=== PATIENT | female | born 1975 | race Caucasian/White ===

== ENCOUNTER 2023-11-10 09:11 | Outpatient (CLI) | payer BC, SELFPAY | END 2023-11-10 09:12 | disposition home or self-care (01) | PROVIDERS: Visit Provider Obstetrics & Gynecology | DX: N92.0 Excessive and frequent menstruation with regular cycle (principal); R53.83 Other fatigue; Z13.220 Encounter for screening for lipoid disorders | CPT/HCPCS: 80061; 82306; 82947; 84443 ==

== ENCOUNTER 2023-11-14 07:23 | Outpatient (CLI) | payer BC, SELFPAY ==
--- NOTE | 2023-11-14 07:15 | US_ITS ---
Patient: VI TURCIOS Facility:?[facility] Patient ID:?[id number] Site Patient ID:?[id number]. Site :?[id number] Study:?US-Pelvis TRANSABDOMINAL AND TRANSVAGINAL-11/14/2023 7:59:56 AM Ordering Physician:GINO HUFF Final Report: INDICATION: Excessive and frequent menstruation. TECHNIQUE: Transabdominal and transvaginal pelvic ultrasound. FINDINGS: Uterus is retroverted and measures 8.3 x 5.6 x 6.9 cm. Endometrial stripe thickness is 1.2 cm. Both ovaries appear normal. No adnexal mass or free fluid. IMPRESSION: Normal pelvic ultrasound. Dictated by Neeraj Frye MD @ 11/14/2023 2:46:15 PM Signed by:?Neeraj Frye MD @11/14/2023 2:46:15 PM (Electronic Signature)
--- OUTSIDE RECORDS SUMMARY | 2023-11-14 07:26 | XMS_ITS | Referral Summary ---
Author Name Unknown Organization [place] Address [facility] [place] [address] Care Team Providers Care Digital Forensic Examiner Name Role Phone Mk Dodge OD Unavailable [phone] Frw, None Unavailable Unavailable No Ref-Primary, Physician Primary Care Provider Allergies Active Allergy Reactions Criticality Noted Date Comments No Known Drug Allergy 02/19/2008 Seasonal Allergies 11/01/2004 Medications Medication Sig Dispensed Refills Start Date End Date Status fluticasone (FLONASE) 50 MCG/ACT nasal sprayIndications:Ac comanche maxillary sinusitis [place] 1-2 sprays into both nostrils daily. 1 Package 11 04/04/2012 Active pseudoePHEDrine-gua iFENesin (MUCINEX D) 60-600 MG per tabletIndications:C hronic rhinitis Take 1 tablet by mouth every 12 hours. 180 tablet 3 06/15/2012 Active albuterol (PROAIR HFA, PROVENTIL HFA, VENTOLIN HFA) 108 (90 BASE) MCG/ACT inhalerIndications: Intermittent asthma Inhale 2 puffs into the lungs every 6 hours as needed for shortness of breath / dyspnea 1 Inhaler 0 07/12/2013 Active Active Problems Problem Noted Date Diagnosed Date Not immune to rubella 08/27/2010 Overview: Rubella: indeterminate: Offer post vaccination Do you wish to do the replacement in the background? yes Resolved Problems Problem Noted Date Diagnosed Date Resolved Date Supervision of other high-risk 08/07/2010 10/03/2011 Overview: H/O PTD at 33 weeks with first , Cerclage with 2nd and went term 08-26-10: Cerclage to be placed with MFM 02-03-11: Removal 02-03-11 OBS for PTL - received Terb and started on PO Nifedipine 10mg q4hr PRN CTX. A1GDM with first , early 1 GCT: normal Recheck growth scan. Problem list name updated by automated process. Provider to review Immunizations Name Administration Dates Next Due COVID-19 Monovalent 18+ (Moderna) 12/11/2020, COVID-19 Monovalent Booster 18+ (Moderna) 07/09/2021 HepB 09/22/2005,06/14/2005,05/17/2005 Historical DTP/aP 11/28/1974, 4,1973, 973 Influenza (IIV3) PF 04/08/2011, 0,04/06/2009, 008,05/09/2006,05/06/2004,05/12/2003,,05/17/2001 Influenza Intranasal Vaccine 05/02/2012 MMR 02/24/2011,06/07/1974 Mantoux Tuberculin Skin Test 03/04/1992 Measles 03/04/1992 OPV, trivalent, live 11/28/1974,11/26/18 74,1973, 973 TDAP (Adacel,Boostrix) 02/24/2011 Tetanus 08/06/1998 Social History Tobacco Use Types Packs/Day Years Used Date Smoking Tobacco: Former Smokeless Tobacco: Never Comments:teenager, quit afte r High School Alcohol Use Standard Drinks/Week Comments Yes 0 (1 standard drink = 0.6 oz pur e alcohol) socially, none with Adolescent Education Answer Date Record ed Getting School Help Needed Not on file 04/24 Sex and Gender Information Value Date Recorded Sex Assigned at Not on file Gender Identity Not on file Sexual Orientation Not on file Last Filed Vital Signs Vital Sign Reading Time Taken Comments Blood Pressure 122/61 07/12/2013 6:36 PM COUNSELING CENTER MANAGER Pulse 81 07/12/2013 6:36 PM COUNSELING CENTER MANAGER Temperature 37 ??C (98.6 ??F) 07/12/2013 6:36 PM COUNSELING CENTER MANAGER Respiratory Rate 16 10/26/2005 11:15 AM CDT Oxygen Saturation 96% 07/12/2013 6:36 PM COUNSELING CENTER MANAGER Inhaled Oxygen Concentration - - Weight 48.1 kg (106 lb) 06/15/2012 1:25 PM COUNSELING CENTER MANAGER Height 158.8 cm (5' 2.5) 10/03/2011 10:17 AM CD T Body Mass Index 19.08 10/03/2011 10:17 AM CDT Plan of Treatment Not on file Procedures Procedure Name Priority Date/Time Associated Diagnosis Comments BASIC METABOLIC PANEL Routine 10/03/2011 10:54 AM CDT Left sided abdominal pain Left flank pain Fever, unspecified Nausea and vomiting Dizziness HIV 1 AND 2 ANTIBODY (QUEST) Routine 08/25/2010 9:28 AM COUNSELING CENTER MANAGER Supervision of other normal HCL LIPID PANEL, REFLEX TO DIRECT LDL Routine 04/05/2010 10:29 AM CDT Lipid Screening HCL PAP THIN LAYER SCREEN Routine 04/05/2010 12:00 AM CDT Screening for Malignant Neoplasm of the Cervix from Last 3 Months or Most Recently Relevant to Health Maintenance Results * (ABNORMAL) Basic metabolic panel (10/03/2011 10:54 AM CDT) Sodium 139 133 - 144 mmol/L [facility] Potassium 3.6 3.4 - 5.3 mmol/L [facility] Chloride 101 94 - 109 mmol/L [facility] Carbon Dioxide 26 20 - 32 mmol/L [facility] Anion Gap 12 6 - 17 mmol/L [facility] Glucose 137(H) 60 - 99 mg/dL [facility] Urea Nitrogen 11 5 - 24 mg/dL [facility] Creatinine 0.82 0.52 - 1.04 mg/dL [facility] GFR Estimate 78 >60 mL/min/1.7 m2 [facility] GFR Estimate If Black >90 >60 mL/min/1.7 m2 [facility] Calcium 8.4(L) 8.5 - 10.4 mg/dL [facility] Blood specimen (specimen) 10/03/2011 10:54 AM CDT 10/03/2011 10:59 AM CDT Lina Rodriguez PA-C LAB - BLOOD OR DERABLES Performing Organization Address City/[facility]/ZIP Co de Phone Number [facility] [address] * HIV 1 and 2 Antibody (08/25/2010 9:28 AM COUNSELING CENTER MANAGER) HIV 1&2 Antibody Negative NEG [facility] Blood specimen (specimen) 08/25/2010 9:28 AM COUNSELING CENTER MANAGER 08/25/2010 9:29 AM COUNSELING CENTER MANAGER Ailyn Leyva NP LAB - BLOOD ORDERABL ES Performing Organization Address City/[facility]/ZIP Co de Phone Number [facility] * LIPID PANEL, REFLEX TO DIRECT LDL (04/05/2010 10:29 AM CDT) Cholesterol 176 0 - 200 mg/dL [facility] Comment: LDL Cholesterol is the primary guide to therapy. The NCEP recommends further evaluation of: patients with cholesterol <200 mg/dL if additional risk factors are present, cholesterol >240 mg/dL, triglycerides >150 mg/dL, or HDL <40 mg/dL. Triglycerides 53 0 - 150 mg/dL [facility] Comment:Fasting specimen HDL Cholesterol 57 50 - 110 mg/dL [facility] LDL Cholesterol Calculated 108 0 - 129 mg/dL [facility] Comment: LDL Cholesterol is the primary guide to therapy: LDL-cholesterol goal in high risk patients is <100 mg/dL and in very high risk patients is <70 mg/dL. VLDL-Cholesterol 11 0 - 30 mg/dL [facility] Cholesterol/HDL Ratio 3.1 0.0 - 5.0 [facility] 04/05/2010 10:2 9 AM CDT 04/05/2010 10:30 AM CDT Jean Springer MD LABORATORY [facility] [place] [address] * A THIN LAYER PAP SCREEN [G0123.000] (04/05/2010 12:00 AM CDT) PAP NIL COPATH Copath Report Patient Name: KINJAL TURCIOS MR#: [id number] Specimen #: [id number] Collected: 04/05/2010 Received: 04/06/2010 Reported: 04/07/2010 15:06 Ordering Phy(s): JEAN SPRINGER SPECIMEN/STAIN PROCESS: Pap thin layer prep screening (Surepath) ? Pap-Cyto x 1, Reflex HPV x 1 SOURCE: Cervical, endocervical Pap thin layer prep screening (Surepath) SPECIMEN ADEQUACY: Satisfactory for evaluation. -Transformation zone component present. CYTOLOGIC INTERPRETATION: Negative for Intraepithelial Lesion or Malignancy Electronically signed out by: ABHIJIT Bolden(ASCP) Processed and screened at [facility], [facility] CLINICAL HISTORY: LMP: NO LMP RECORDED Previous normal pap: NIL, 02/10/09 Previous normal pap: NIL, 04/17/06 Previous normal pap: NIL, 12/07/04, Papanicolaou Test Limitations: ??Cervical cytology is a screening test with limited sensitivity; regular screening is critical for cancer prevention; Pap tests are primarily effective for the diagnosis/preventi on of squamous cell carcinoma, not adenocarcinomas or other cancers. TESTING LAB LOCATION: [address] [place] [address] COLLECTION SITE: Client: ??[facility] Location: [facility] (W) COPATH 04/05/2010 04/06/2010 10: 30 AM CDT Jean Springer MD LABORATORY COPATH from Last 3 Months or Most Recently Relevant to Health Maintenance Care Teams Digital Forensic Examiner Relationship Specialty Start Date End Date Mk Dodge, DUC [facility] [address] [facility] [address] [place] [address] PCP - Ophthalmology 04/21/08 Frw, None PCP - Obstetrics/Gynecology Family Practice 08/25/10 No Ref-Primary, Physician PCP - General 07/09/21
--- OUTSIDE RECORDS SUMMARY | 2023-11-14 07:26 | XMS_ITS | Encounter Summary ---
Author Name Unknown Organization [place] Address [address] [place] [address] Care Team Providers Care Stamp Maker Name Role Phone Mk Dodge OD Unavailable Frw, None Primary Care Provider Unavailabl e Frw, None Unavailable Unavailable Encounter Details Date Type Department Care Team (Late st Contact Info) Description 02/10/2011 1:00 PM CDT [facility] in [facility] [address] [place] [phone] Wen Jo MD [address] [place] [address] Social History Tobacco Use Types Packs/Day Years Used Date Smoking Tobacco: Former Smokeless Tobacco: Never Comments:teenager, quit afte r High School Alcohol Use Standard Drinks/Week Comments Yes 0 (1 standard drink = 0.6 oz pur e alcohol) socially, none with Sex and Gender Information Value Date Recorded Sex Assigned at Not on file Gender Identity Not on file Sexual Orientation Not on file documented as of this encounter Plan of Treatment Not on file documented as of this encounter Visit Diagnoses Not on filedocumented in this encounter Care Teams Stamp Maker Relationship Specialty Start Date End Date Mk Dodge, DUC [facility] [address] [place] [address] [address] [place], [place] [id number] PCP - Ophthalmology 04/21/08 Frw, None PCP - General Family Practice 08/25/10 03/23/17 Frw, None PCP - Obstetrics/Gynecology Family Practice 08/25/10 documented as of this encounter
--- OUTSIDE RECORDS SUMMARY | 2023-11-14 07:26 | XMS_ITS | Encounter Summary ---
Author Name Unknown Organization [place] Address [address] [place] [address] Care Team Providers Care Reed Repairer Name Role Phone Mk Dodge OD Unavailable [phone] Frw, None Primary Care Provider Unavailabl e Frw, None Unavailable Unavailable Encounter Details Date Type Department Care Team (Late st Contact Info) Description 01/06/2011 11:00 AM T [facility] in [facility] [address] [place] [phone] Wen Jo MD [address] [place] [address] Social History Tobacco Use Types [...] on filedocumented in this encounter Care Teams Reed Repairer Relationship Specialty Start Date End Date Mk Dodge, DUC [address] [place], [place] [id number] PCP - Ophthalmology 04/21/08 Frw, None PCP - General Family Practice 08/25/10 03/23/17 Frw, None PCP - Obstetrics/Gynecology Family Practice 08/25/10 documented as of this encounter
--- OUTSIDE RECORDS SUMMARY | 2023-11-14 07:26 | XMS_ITS | Encounter Summary ---
Author Name Unknown Organization [place] Address [facility] [place] [address] Care Team Providers Care Program Specialist Name Role Phone Mk Dodge OD Unavailable Frw, None Primary Care Provider Unavailabl e Frw, None Unavailable Unavailable Encounter Details Date Type Department Care Team (Late st Contact Info) Description 01/15/2011 6:50 PM CDT [facility] in [facility] [address] [place] [phone] Claudia Meyers MD [facility] [address] [place] [address] Social History Tobacco Use Types Packs/Day Years [...] on filedocumented in this encounter Care Teams Program Specialist Relationship Specialty Start Date End Date Mk Dodge, DUC [address] [place] [address] PCP - Ophthalmology 04/21/08 Frw, None PCP - General Family Practice 08/25/10 03/23/17 Frw, None PCP - Obstetrics/Gynecology Family Practice 08/25/10 documented as of this encounter
--- OUTSIDE RECORDS SUMMARY | 2023-11-14 07:26 | XMS_ITS | Encounter Summary ---
Author Name Unknown Organization [place] Address [address] [place] [address] Care Team Providers Care Diamond Merchant Name Role Phone Placido Velazco MD Primary Care Provider [phone] Jean Abel MD Unavailable Unavailable Mk Dodge OD Unavailable [phone] Frw, None Primary Care Provider Unavailabl e Frw, None Unavailable Unavailable No Ref-Primary, Physician Primary Care Provider Encounter Details Date Type Department Care Team (Late st Contact Info) Description 04/08/2010 MyC Medical Advice [facility] in [place] [employer]ER AIRCRAFT [address] [place] [phone] Jean Abel MD Social History Tobacco Use Types Packs/Day Years Used Date Smoking Tobacco: Former Comments:teenager, quit afte r High School Alcohol Use Standard Drinks/Week Comments Yes 0 (1 standard drink = 0.6 oz pur e alcohol) socially Sex and Gender Information Value Date Recorded Sex Assigned at Not on file Gender Identity Not on file Sexual Orientation Not on file documented as of this encounter Plan of Treatment Not on file documented as of this encounter Visit Diagnoses Not on filedocumented in this encounter Care Teams Diamond Merchant Relationship Specialty Start Date End Date Placido Velazco MD [facility] [address] [facility] [place] [phone] PCP - General 1/23/01 2/1/11 Jean Abel MD PCP - Obstetrics/Gynecology 08/15/00 08/24/10 Mk Dodge OD [facility] [address] [facility] [address] [place] [address] PCP - Ophthalmology 04/21/08 Frw, None PCP - General Family Practice 08/25/10 03/23/17 Frw, None PCP - Obstetrics/Gynecology Family Practice 08/25/10 No Ref-Primary, Physician PCP - General 07/09/21 documented as of this encounter
--- OUTSIDE RECORDS SUMMARY | 2023-11-14 07:26 | XMS_ITS | Encounter Summary ---
Author Name Unknown Organization [place] Address [address] [place] [address] Care Team Providers Care Business Account Manager Name Role Phone Placido Velazco MD Primary Care Provider [phone] Jean Abel MD Unavailable Unavailable Mk Dodge OD Unavailable [phone] Frw, None Primary Care Provider Unavailabl e Frw, None Unavailable Unavailable No Ref-Primary, Physician Primary Care Provider Encounter Details Date Type Department Care Team (Late st Contact Info) Description 02/13/2009 MyC Medical Advice [facility] in [place] HAZARD WASTE HANDLER [address] [place] [phone] Jean Abel MD Social History Tobacco Use [...] on filedocumented in this encounter Care Teams Business Account Manager Relationship Specialty Start Date End Date Placido Velazco MD [facility] [address] [facility] [place] [phone] PCP - General 1/23/01 2/1/11 Jean Abel MD PCP - Obstetrics/Gynecology 08/15/00 08/24/10 Mk Dodge OD [facility] [address] [facility] [address] [place] [address] PCP - Ophthalmology 04/21/08 Frw, None PCP - General Family Practice 08/25/10 03/23/17 Frw, None PCP - Obstetrics/Gynecology Family Practice 08/25/10 No Ref-Primary, Physician PCP - General 07/09/21 documented as of this encounter
--- OUTSIDE RECORDS SUMMARY | 2023-11-14 07:26 | XMS_ITS | Encounter Summary ---
Author Name Unknown Organization [place] Address [address] [place] [address] Care Team Providers Care Net Lead Architect Name Role Phone Mk Dodge OD Unavailable [phone] Frw, None Primary Care Provider Unavailabl e Frw, None Unavailable Unavailable No Ref-Primary, Physician Primary Care Provider Reason for Visit * Reason Onset Date Comments Refill Request 01/19/2011 ambien Encounter Details Date Type Department Care Team (Late st Contact Info) Description 01/19/2011 Refill [facility] in [place] LENS MAKER [address] [place] [phone] Wen Jo MD [address] [place] [address] Refill Request (ambien) Social History Tobacco Use Types Packs/Day Years Used Date Smoking Tobacco: Former Smokeless Tobacco: Never Comments:teenager, quit afte r High School Alcohol Use Standard Drinks/Week Comments Yes 0 (1 standard drink = 0.6 oz pur e alcohol) socially, none with Comments Yes Sex and Gender Information Value Date Recorded Sex Assigned at Not on file Gender Identity Not on file Sexual Orientation Not on file documented as of this encounter Miscellaneous Notes * Telephone Encounter - Belle Alejo - 01/19/2011 4:53 PM CDT Please print, sign and have rx faxed back to [facility]. Skinny got rx but it had no signature. Seen today. Close encounter when completed. Thank you. documented in this encounter Plan of Treatment Not on file documented as of this encounter Visit Diagnoses Not on filedocumented in this encounter Care Teams Net Lead Architect Relationship Specialty Start Date End Date Mk Dogde OD [facility] [address] [facility] 95 [place] [address] PCP - Ophthalmology 04/21/08 Frw, None PCP - General Family Practice 08/25/10 03/23/17 Frw, None PCP - Obstetrics/Gynecology Family Practice 08/25/10 No Ref-Primary, Physician PCP - General 07/09/21 documented as of this encounter
--- OUTSIDE RECORDS SUMMARY | 2023-11-14 07:26 | XMS_ITS | Encounter Summary ---
Author Name Unknown Organization [facility] Address [address] [place] [address] Care Team Providers Care Bariatric Coordinator Name Role Phone Placido Velazco MD Primary Care Provider [phone] Jean Abel MD Unavailable Unavailable Mk Dodge OD Unavailable [phone] Frw, None Primary Care Provider Unavailabl e Frw, None Unavailable Unavailable No Ref-Primary, Physician Primary Care Provider Encounter Details Date Type Department Care Team (Late st Contact Info) Description 02/29/2008 MyC Medical Advice [facility] in [place] PLACEMENT DIRECTOR [address] [place] [phone] Jean Abel MD Social History Tobacco Use Types Packs/Day Years Used Date Smoking Tobacco: Former Comments:teenager, quit afte r High School Alcohol Use Standard Drinks/Week Comments Yes 0 (1 standard drink = 0.6 oz pur e alcohol) socially, not with Sex and Gender Information Value Date Recorded Sex Assigned at Not on file Gender Identity Not on file Sexual Orientation Not on file documented as of this encounter Plan of Treatment Not on file documented as of this encounter Visit Diagnoses Not on filedocumented in this encounter Care Teams Bariatric Coordinator Relationship Specialty Start Date End Date Placido Velazco MD [facility] [address] [facility] [address] [place] [address] PCP - General 08/15/00 08/24/10 Jean Abel MD PCP - Obstetrics/Gynecology 08/15/00 08/24/10 Mk Dodge OD [facility] [place] [address] [facility] [address] [place] [address] PCP - Ophthalmology 04/21/08 Frw, None PCP - General Family Practice 08/25/10 03/23/17 Frw, None PCP - Obstetrics/Gynecology Family Practice 08/25/10 No Ref-Primary, Physician PCP - General 07/09/21 documented as of this encounter
--- OUTSIDE RECORDS SUMMARY | 2023-11-14 07:26 | XMS_ITS | Encounter Summary ---
Author Name Unknown Organization [place] Address [address] [place] [address] Care Team Providers Care Eeo Officer Name Role Phone Placido Velazco MD Primary Care Provider [phone] Jean Abel MD Unavailable Unavailable Mk Dodge OD Unavailable [phone] Frw, None Primary Care Provider Unavailabl e Frw, None Unavailable Unavailable No Ref-Primary, Physician Primary Care Provider Encounter Details Date Type Department Care Team (Late st Contact Info) Description 04/05/2010 MyC Medical Advice [facility] in [place] COMPLIANCE PARALEGAL [address] [place] [phone] Jean Abel MD Social History Tobacco Use [...] on filedocumented in this encounter Care Teams Eeo Officer Relationship Specialty Start Date End Date Placido Velazco MD [facility] [address] [facility] [place] [phone] PCP - General 1/23/01 2/1/11 Jean Abel MD PCP - Obstetrics/Gynecology 08/15/00 08/24/10 Mk Dodge OD [facility] [address] [facility] [address] [place] [address] PCP - Ophthalmology 04/21/08 Frw, None PCP - General Family Practice 08/25/10 03/23/17 Frw, None PCP - Obstetrics/Gynecology Family Practice 08/25/10 No Ref-Primary, Physician PCP - General 07/09/21 documented as of this encounter
--- OUTSIDE RECORDS SUMMARY | 2023-11-14 07:26 | XMS_ITS | Clinical Summary ---
Author Name Unknown Organization [facility] Address [facility] [place] [address] Care Team Providers Care Exhibit Preparator Name Role Phone Mk Dodge OD Unavailable [phone] Frw, None Unavailable Unavailable No Ref-Primary, Physician Primary Care Provider Allergies Active Allergy Reactions Criticality Noted Date Comments No Known Drug Allergy 02/19/2008 Seasonal Allergies 11/01/2004 Medications Medication Sig Dispensed Refills Start Date End Date Status fluticasone (FLONASE) 50 MCG/ACT nasal sprayIndications:Ac curyung maxillary sinusitis [place] 1-2 sprays into both nostrils daily. 1 [...] 74,1973, 973 TDAP (Adacel,Boostrix) 02/24/2011 Tetanus 08/06/1998 Family History Medical History Relation Comments Alzheimer Disease Father Eye Disorder Father CATARACTS Prostate Cancer Maternal Grandfather Allergies Maternal Grandmother bee stings Diabetes Maternal Grandmother Eye Disorder Maternal Grandmother Grandmother - Cataracts Genetic Disorder Maternal Grandmother Neurologic Disorder Mother Hx/O seizure s with during labor later diagnosis with Epilepsy Hypertension Other Grandmother Cancer - colorectal Paternal Grandfather Eye Disorder Paternal Grandfather Grandfather - Cataracts Breast Cancer No family hx of Cerebrovascular Disease No family hx of Heart Disease No family hx of Thyroid Disease No family hx of reviewed 04/17/20 06 Relation Status Comments Father Alive Maternal Grandfather Maternal Grandmother Mother Alive Other Paternal Grandfather Social History Tobacco Use Types Packs/Day Years [...] Comments Blood Pressure 122/61 07/12/2013 6:36 PM [employer] Pulse 81 07/12/2013 6:36 PM [employer] Temperature 37 ??C (98.6 ??F) 07/12/2013 6:36 PM [employer] Respiratory Rate 16 10/26/2005 11:15 AM CDT Oxygen Saturation 96% 07/12/2013 6:36 PM [employer] Inhaled Oxygen Concentration - - Weight 48.1 kg (106 lb) 06/15/2012 1:25 PM [employer] Height 158.8 cm (5' 2.5) 10/03/2011 10:17 AM CD T Body Mass Index 19.08 10/03/2011 10:17 AM CDT Plan of Treatment Health Maintenance Due Date Last Done Comments ADVANCE CARE PLANNING 1973 ANNUAL REVIEW OF HM ORDERS 1973 CT COLONOGRAPHY 1973 FIT 1973 FLEX SIG 1973 MAMMO SCREENING 1973 sDNA (Cologuard) 1973 IPV IMMUNIZATION (4 of 4 - 4-dose series) 1977 11/28/1974, 1973, 1973, Additional history exists COLONOSCOPY 1983 COLORECTAL CANCER SCREENING 1983 HEPATITIS C SCREENING 1991 YEARLY PREVENTIVE VISIT 04/05/2011 04/05/20 10, 02/10/2009, 04/17/2006, Additional history exists PAP 04/05/2013 04/05/2010, 01/22, 04/17/2006, Additional history exists GLUCOSE 10/02/2014 10/03/2011, 03/24, 02/19/2008 LIPID 04/05/2015 04/05/2010 DTAP/TDAP/TD IMMUNIZATION (5 - Td or Tdap) 02/24/2021 02/24/2011, 08/06/1998, 11/28/1974, Additional history exists COVID-19 Vaccine (4 - 2022- season) 2023 07/09/2021, 12/11/2020, 11/13/2020 INFLUENZA VACCINE (#1) 2023 , 05/05/2020, 04/19/2019, Additional history exists ZOSTER IMMUNIZATION (1 of 2) 2023 PHQ-2 (once per calendar year) 2023 HEPATITIS B IMMUNIZATION Completed 006, 09/22/2005, 09/22/2005, Additional history exists HIV SCREENING Completed 08/25/2010 HPV IMMUNIZATION Aged Out No longer e ligible based on patient's age to complete this topic MENINGITIS IMMUNIZATION Aged Out No l onger eligible based on patient's age to complete this topic Pneumococcal Vaccine: Pediatrics (0 to 5 Years) and At-Risk Patients (6 to 64 Years) Aged Out No longer eligible based on patient's age to complete this topic RSV MONOCLONAL ANTIBODY Aged Out No l onger eligible based on patient's age to complete this topic Procedures Procedure Name Priority Date/Time Associated Diagnosis Comments BASIC METABOLIC PANEL Routine 10/03/2011 10:54 AM CDT Left sided abdominal pain Left flank pain Fever, unspecified Nausea and vomiting Dizziness HIV 1 AND 2 ANTIBODY (QUEST) Routine 08/25/2010 9:28 AM [employer] Supervision of other normal HCL LIPID PANEL, REFLEX TO DIRECT LDL Routine 04/05/2010 10:29 AM CDT Lipid Screening HCL PAP THIN LAYER SCREEN Routine 04/05/2010 12:00 AM CDT Screening for Malignant Neoplasm of the Cervix from Last 3 Months or Most Recently Relevant to Health Maintenance Results * (ABNORMAL) Basic metabolic panel (10/03/2011 10:54 AM CDT) Sodium 139 133 - 144 mmol/L [facility] Potassium 3.6 3.4 - 5.3 mmol/L [facility] Chloride 101 94 - 109 mmol/L [facility] Carbon Dioxide 26 20 - 32 mmol/L [facility] Anion Gap 12 6 - 17 mmol/L [facility] Glucose 137(H) 60 - 99 mg/dL [facility] Urea Nitrogen 11 5 - 24 mg/dL [facility] Creatinine 0.82 0.52 - 1.04 mg/dL [facility] GFR Estimate 78 >60 mL/min/1.7 m2 [facility] GFR Estimate If Black >90 >60 mL/min/1.7 m2 [facility] Calcium 8.4(L) 8.5 - 10.4 mg/dL [facility] Blood specimen (specimen) 10/03/2011 10:54 AM CDT 10/03/2011 10:59 AM CDT Lina Rodriguez PA-C LAB - BLOOD OR DERABLES [facility] [place] [address] * HIV 1 and 2 Antibody (08/25/2010 9:28 AM [employer]) HIV 1&2 Antibody Negative NEG [facility] Blood specimen (specimen) 08/25/2010 9:28 AM [employer] 08/25/2010 9:29 AM [employer] Ailyn Leyva NP LAB - BLOOD ORDERABL ES [facility] * LIPID PANEL, REFLEX TO DIRECT LDL (04/05/2010 10:29 AM CDT) Cholesterol 176 0 - 200 mg/dL [facility] Comment: LDL Cholesterol is the primary guide to therapy. The NCEP recommends further evaluation of: patients with cholesterol <200 mg/dL if additional risk factors are present, cholesterol >240 mg/dL, triglycerides >150 mg/dL, or HDL <40 mg/dL. Triglycerides 53 0 - 150 mg/dL [facility] Comment:Fasting specimen HDL Cholesterol 57 50 - 110 mg/dL [facility] LDL Cholesterol Calculated 108 0 - 129 mg/dL [facility] Comment: LDL Cholesterol is the primary guide to therapy: LDL-cholesterol goal in high risk patients is <100 mg/dL and in very high risk patients is <70 mg/dL. VLDL-Cholesterol 11 0 - 30 mg/dL [facility] Cholesterol/HDL Ratio 3.1 0.0 - 5.0 [facility] 04/05/2010 10:2 9 AM CDT 04/05/2010 10:30 AM CDT Jean Springer MD LABORATORY [facility] [address] * A THIN LAYER PAP SCREEN [G0123.000] (04/05/2010 12:00 AM CDT) PAP PETEY Begum Report Patient Name: KINJAL TURCIOS MR#: [id number] Specimen #: [id number] Collected: 04/05/2010 Received: 04/06/2010 Reported: 04/07/2010 15:06 Ordering Phy(s): JEAN SPRINGER SPECIMEN/STAIN PROCESS: Pap thin layer prep screening ([facility]) ? Pap-Cyto x 1, Reflex HPV x 1 SOURCE: Cervical, endocervical Pap thin layer prep screening ([facility]) SPECIMEN ADEQUACY: Satisfactory for evaluation. -Transformation zone component present. CYTOLOGIC INTERPRETATION: Negative for Intraepithelial Lesion or Malignancy Electronically signed out by: ABHIJIT Bolden(ASCP) Processed and screened at [facility], [facility] CLINICAL HISTORY: LMP: NO LMP RECORDED Previous normal pap: NIL, 02/10/09 Previous normal pap: NIL, 04/17/06 Previous normal pap: NIL, 5/17/05, Papanicolaou Test Limitations: ??Cervical cytology is a screening test with limited sensitivity; regular screening is critical for cancer prevention; Pap tests are primarily effective for the diagnosis/preventi on of squamous cell carcinoma, not adenocarcinomas or other cancers. TESTING LAB LOCATION: [address] [place] [address] COLLECTION SITE: Client: ??[facility] Location: [facility] (W) [facility] 04/05/2010 04/06/2010 10: 30 AM CDT Jean Springer MD LABORATORY [facility] from Last 3 Months or Most Recently Relevant to Health Maintenance Care Teams Exhibit Preparator Relationship Specialty Start Date End Date Mk Dodge OD [address] [address] PCP - Ophthalmology 04/21/08 Frw, None PCP - Obstetrics/Gynecology Family Practice 08/25/10 No Ref-Primary, Physician PCP - General 07/09/21
--- OUTSIDE RECORDS SUMMARY | 2023-11-14 07:26 | XMS_ITS | Encounter Summary ---
Author Name Unknown Organization [facility] Address [address] [place] [id number] Care Team Providers Care Vendor Manager Name Role Phone Placido Velazco MD Primary Care Provider [phone] Jean Abel MD Unavailable Unavailable Mk Dodge OD Unavailable [phone] Frw, None Primary Care Provider Unavailabl e Frw, None Unavailable Unavailable No Ref-Primary, Physician Primary Care Provider Encounter Details Date Type Department Care Team (Late st Contact Info) Description 02/25/2008 MyC Medical Advice [facility] in [place] [facility] [address] [phone] Jean Abel MD Social History Tobacco Use [...] on filedocumented in this encounter Care Teams Vendor Manager Relationship Specialty Start Date End Date Placido Velazco MD [facility] [address] [facility] [address] [place] [address] PCP - General 08/15/00 08/24/10 Jean Abel MD PCP - Obstetrics/Gynecology 08/15/00 08/24/10 Mk Dodge OD [facility] [place] [address] [facility] [address] [place] [address] PCP - Ophthalmology 04/21/08 Frw, None PCP - General Family Practice 08/25/10 03/23/17 Frw, None PCP - Obstetrics/Gynecology Family Practice 08/25/10 No Ref-Primary, Physician PCP - General 07/09/21 documented as of this encounter
--- OUTSIDE RECORDS SUMMARY | 2023-11-14 07:26 | XMS_ITS | Referral Summary ---
Author Name Unknown Organization [facility] Address [address] [place] [address] Care Team Providers Care Dishwasher Preparer Name Role Phone Elsewhere, Pcp Primary Care Provider Unavailabl e Source Comments Patient records contain information from all sites at [facility]. For routine questions regarding patient records, call [phone] during business hours, M-F 8:00 AM - 5:00 PM Central Time. Record requests for emergency care only can be directed to [phone] at any time.[facility] Encounters Date Type Department Care Team Description 08/28/2023 12:15 PM CROP NUTRITION SCIENTIST Office Visit Express Care in [address] [address] Ezio Mtz, PKellieA.-C., P.A. Sore Throat (Primary Dx); Asthma Mild Intermittent (HCC); Cough Acute Discharge Disposition: Home or Self Care from Last 3 Months Allergies Active Allergy Reactions Criticality Noted Date Comments Adhesive Tape-Silicones Rash 01/08/2016 Pollen Extracts Other (see comments) 10/19/2013 SEASONAL ALLERGIES Medications Medication Sig Dispensed Refills Start Date End Date Status albuterol (for_PROVENTIL HFA,VENTOLIN HFA) 90 mcg/actuation inhaler Inhale 2 puffs every 4 (four) hours as needed. 02/27/2015 Active fluticasone (for_FLONASE) 50 mcg/actuation nasal spray Administer 2 sprays into each nostril daily for 14 days. 16 g 07/01/2017 Active Active Problems Problem Noted Date Diagnosed Date Asthma Mild Intermittent 05/30/2019 Allergy Seasonal 05/30/2019 Immunizations Name Administration Dates Next Due DTP 11/28/1974, 4,1973,1972 HepB, Unspecified 09/22/2005,06/14/2005,05/17/20 05 Influenza (IM) Preservative Free 011,04/22/2010,04/06/2009,2005 Influenza Laiv (Nasal) (Discontinued) 05/02/2012 Influenza TIV (IM) 04/08/2011, 0,04/06/2009,2007,05/09/2006,05/06/2004,05/12/2003,1 ,05/17/2001 Influenza, Injectable, Mdck, Preservative Free, Quadrivalent 05/05/2020 Influenza, Injectable, Mdck, Quadrivalent 05/04/2021 Influenza, Seasonal, Injectable 05/15/20 17,05/06/2004,05/12/2003,2001,05/17/2001 Influenza, Unspecified 05/23/2016,2013,04/08/2011,2009,04/06/2009,05/02/2008,05/09/2006,1 ,05/12/2003,05/09/2002, 001 MMR 02/24/2011,06/07/1974 Measles 03/04/1992 OPV 11/28/1974, 4,1973,1972 Tdap 02/24/2011 Tetanus Toxoid, Adsorbed (discontinued) 08/06/1998 Tuberculin Skin Test, Unspecified 03/04/1992 influenza LAIV (Nasal) (2 ye ars through 49 years) 05/02/2012 influenza vaccine quad (FLUZONE/FLUARIX) (6 months and older)(PF) 04/19/2022,04/19/2019,05/18/2018 Social History Tobacco Use Types Packs/Day Years Used Date Smoking Tobacco: Former Smokeless Tobacco: Never Tobacco Cessation:Counseling Given: Not Answered Alcohol Use Standard Drinks/Week Comments Yes 0 (1 standard drink = 0.6 oz pur e alcohol) occasionally Humiliation, Afraid, Rape, and Kick questionnair e Answer Date Recorded Within the last year, have y ou been afraid of your partner or ex-partner? No 10/13/2022 Within the last year, have y ou been humiliated or emotionally abused in other ways by your partner or ex-partner? No Within the last year, have y ou been kicked, hit, slapped, or otherwise physically hurt by your partner or ex-partner? No 10/13/2022 Within the last year, have y ou been raped or forced to have any kind of sexual activity by your partner or ex-partner? No 10/13/2022 Social Connection and Isolat ion Panel [NHANES] Answer Date Recorded In a typical week, how many times do you talk on the phone with family, friends, or neighbors? More than three times a week 10/13/2022 How often do you get togethe r with friends or relatives? More than three times a week 10/13/2022 How often do you attend [facility] or orthodoxy services? Patient declined 10/13/2022 Do you belong to any clubs o r organizations such as jew groups, unions, fraternal or athletic groups, or school groups? Yes 10/13/2022 How often do you attend meet ings of the clubs or organizations you belong to? 1 to 4 times per year 10/13/2022 Are you , , di vorced, , never , or living with a partner? 10/13/2022 AUDIT-C Answer Date Recorded Q1: How often do you have a drink containing alc ohol? Monthly or less 10/13/2022 Q2: How many drinks containi ng alcohol do you have on a typical day when you are drinking? 1 or 2 10/13/2022 Q3: How often do you have si x or more drinks on one occasion? Never 10/13/2022 Overall Financial Resource Strain (CARDIA) Answe r Date Recorded How hard is it for you to pa y for the very basics like food, housing, medical care, and heating? Not very hard 10/13/2022 PHQ-2 Answer Date Recorded PHQ-2 Score 0 03/23/2020 [facility] of Occupat ional Health - Occupational Stress Questionnaire Answer Date Recorded Do you feel stress - tense, restless, nervous, or anxious, or unable to sleep at night because your mind is troubled all the time - these days? Only a little 10/13/2022 Exercise Vital Sign Answer Date Recorde d On average, how many days pe r week do you engage in moderate to strenuous exercise (like a brisk walk)? 2 days 10/13/2022 On average, how many minutes do you engage in exercise at this level? 20 min 10/13/2022 Hunger Vital Sign Answer Date Recorded Within the past 12 months, y ou worried that your food would run out before you got the money to buy more. Never true 10/14/19 Within the past 12 months, t he food you bought just didn't last and you didn't have money to get more. Never true 10/13/2022 PRAPARE - Transportation Answer Date Re corded In the past 12 months, has l ack of transportation kept you from medical appointments or from getting medications? No 09/22 In the past 12 months, has l ack of transportation kept you from meetings, work, or from getting things needed for daily living? No 10/13/2022 Housing Stability Vital Sign Answer Surinder e Recorded In the last 12 months, was t here a time when you were not able to pay the mortgage or rent on time? No 10/13/2022 In the last 12 months, how many places have you lived? 1 10/13/2022 In the last 12 months, was t here a time when you did not have a steady place to sleep or slept in a residential (including now)? No 10/13/2022 Nutrition Answer Date Recorded Nutrition: EVOO Fat Source No 10/13 On average, how many serving s of fruits and vegetables do you eat per day (serving size is equal to 1 cup or approximately the size of a tennis ball)? 4-5 10/13/2022 Dental Answer Date Recorded Dental: Regular Dentist Yes 10/14/19 Employment Answer Date Recorded Employment status Employed and actively working without restrictions 10/13/2022 Education Answer Date Recorded What is the highest level of school you have completed or the highest degree you have received? Associate degree: academic program 10/13/2022 Sex and Gender Information Value Date Recorded Sex Assigned at Female 06/29/2017 5:49 AM CROP NUTRITION SCIENTIST Gender Identity Female 06/29/2017 5:49 AM CROP NUTRITION SCIENTIST Sexual Orientation Straight 06/29/2017 5: 49 AM CROP NUTRITION SCIENTIST Last Filed Vital Signs Vital Sign Reading Time Taken Comments Blood Pressure 114/59 04/24/2023 7:46 AM CDT Pulse 70 04/24/2023 7:46 AM CDT Temperature 36.7 ??C (98 ??F) 08/28/2023 12:28 PM CROP NUTRITION SCIENTIST Respiratory Rate 16 04/24/2023 7:46 AM CDT Oxygen Saturation 98% 03/23/2020 7:38 AM CDT Inhaled Oxygen Concentration - - Weight 55.8 kg (123 lb 0.3 oz) 04/24/2023 7:46 A M CDT Height 159 cm (5' 2.6) 08/29/2022 10:50 AM CROP NUTRITION SCIENTIST Body Mass Index 22.07 08/29/2022 10:50 AM CROP NUTRITION SCIENTIST Plan of Treatment Not on file Procedures Procedure Name Priority Date/Time Associated Diagnosis Comments COMPREHENSIVE METABOLIC PANEL, S/P STAT 03/22/2020 10:08 AM CDT LIPID PANEL, S Routine 11/29/2016 7:04 AM CDT BI BREAST SCREENING BILATERAL WITH TOMOSYNTHESIS Routine 11/27/2015 3:19 PM CDT PATHOLOGY NIGHT WAREHOUSE MANAGER CYTOLOGY Routine 6 2:35 PM CDT from Last 3 Months or Most Recently Relevant to Health Maintenance Results * (ABNORMAL) Comprehensive Metabolic Panel (03/22/2020 10:08 AM CDT) Potassium, P 4.1 3.6 - 5.2 mmol/L 03/22/2020 10:43 AM CDT CNFL Sodium, P 138 135 - 145 mmol/L 03/22/2020 10:43 AM CDT CNFL Chloride, P 101 98 - 107 mmol/L 03/22/2020 10:43 AM CDT CNFL Bicarbonate, P 26 22 - 29 mmol/L 03/22/2020 10:43 AM CDT CNFL Anion Gap, P 11 7 - 15 03/22/2020 10:43 AM CDT CNFL BUN (Blood Urea Nitrogen), P 11 6 - 21 mg/dL 03/22/2020 10:43 AM CDT CNFL Creatinine 0.73 0.59 - 1.04 mg/dL 03/22/2020 10:43 AM CDT CNFL eGFR-Black/ >90 >=60 mL/min/BS A 03/22/2020 10:43 AM CDT CNFL Comment: ----ADDITIONAL INFORMATION---- Estimated GFR calculated using the 2009 CKD_EPI creatinine equation. eGFR Non-Black/ >90 >=60 mL/min/BS A 03/22/2020 10:43 AM CDT CNFL Comment: ----ADDITIONAL INFORMATION---- Estimated GFR calculated using the 2009 CKD_EPI creatinine equation. Calcium, Total, P 8.5(L) 8.6 - 10.0 mg/dL 03/22/2020 10:43 AM CDT CNFL Glucose, P 98 70 - 140 mg/dL 03/22/2020 10:43 AM CDT CNFL Protein, Total, P 6.9 6.3 - 7.9 g/dL 03/22/2020 10:43 AM CDT CNFL Albumin, P 4.2 3.5 - 5.0 g/dL 03/22/2020 10:43 AM CDT CNFL Aspartate Aminotransferase (AST), P 16 8 - 43 U/L 03/22/2020 10:43 AM CDT CNFL Alkaline Phosphatase, P 52 35 - 104 U/L 03/22/2020 10:43 AM CDT CNFL Alanine Aminotransferase (ALT), P 10 7 - 45 U/L 03/22/2020 10:43 AM CDT CNFL Bilirubin, Total, P 0.4 <=1.2 mg/dL 03/22/2020 10:43 AM CDT CNFL Blood (Blood, Venous) 03/22/2020 10:08 AM CDT 03/22/2020 10:12 AM CDT Lavon Alvarez P.A.-C. LAB BLOOD ADD-ON [facility] [address] [place] [id number], [facility] CNFL [place] [address] * Lipid Panel (11/29/2016 7:04 AM CDT) Cholesterol, Total 148 <=199 MGDL POWERCHART Comment: 2014 National Lipid Association recommendations for Total Cholesterol in adults ages 18 and up: Desirable <200 mg/dL Borderline high 200-239 mg/dL High 240 mg/dL 2014 National Lipid Association recommendations for Total Cholesterol in children ages 2 to 17. Acceptable <170 mg/dL Borderline High 170-199 mg/dL High 200 mg/dL HX HDL 54 >=50 MGDL POWERCHART Comment: 2014 National Lipid Association recommendations for HDL-C in adults ages 18 and up: Low <40 mg/dL (Men) Low <50 mg/dL (Women) 2014 National Lipid Association recommendations for HDL-C in children ages 2 to 17. Low <40 mg/dL Borderline Low 40-45 mg/dL Acceptable >45 mg/dL Triglycerides 57 <=149 MGDL POWERCHART Comment: 2014 National Lipid Association recommendations for Triglycerides in adults ages 18 and up: Normal <150 mg/dL Borderline High 150-199 mg/dL High 200-499 mg/dL Very High 500 mg/dL 2014 National Lipid Association recommendations for Triglycerides in children ages 2 to 9. Acceptable <75 mg/dL Borderline High 75-99 mg/dL High 100 mg/dL 2014 National Lipid Association recommendations for Triglycerides in children ages 10 to 17. Acceptable <90 mg/dL Borderline High 90-129 mg/dL High 130 mg/dL Trigs >400mg/dL: Triglycerides >400 mg/dL. Calculated LDL cholesterol is not valid. Non-HDL cholesterol may be used for risk assessment when triglycerides are >400mg/dL. Calculated LDL 83 <=129 MGDL POWERCHART Comment: 2014 National Lipid Association recommendations for LDL-C in adults ages 18 and up: Desirable <100 mg/dL Above desirable 100-129 mg/dL Borderline high 130-159 mg/dL High 160-189 mg/dL Very High 190 mg/dL 2014 National Lipid Association recommendations for LDL-C in children ages 2 to 17. Acceptable <110 mg/dL Borderline High 110-129mg/dL High 130 mg/dL LDL-C >190mg/dL: The markedly elevated LDL level is suggestive of a genetic condition such as familial hypercholesterolemia(FH) or familial defective apolipoprotein B-100 (FDB). Molecular genetic testing for FH and FDB is available through [facility]: FH/ADH Genetic Reflex Panel (test ADHP). Acquired (non-genetic) causes of markedly increased LDL cholesterol include cholestatic liver disease due to the presence of LpX. If a genetic form of hypercholesterolemia is suspected, family studies including biochemical testing for lipids (total cholesterol,triglycerides, LDL cholesterol and HDL cholesterol) are recommended. ??Please contact the laboratory at or the on-line test catalog at [employer] for information about how to order these tests or to speak with a genetic counselor. Further interpretation would require clinical information. Total Cholesterol/HDL Ratio 3 POWERCHART Blood 11/29/2016 7:04 AM CDT Jeanine De La Torre P.A.-C. P.A. LAB BLOOD ADD-ON POWERCHART * BI Breast Screening Bilateral with Tomosynthesis (11/27/2015 3:19 PM CDT) Anatomical Region Laterality Modality Breast Bilateral Mammography 11/27/2015 3:19 PM CDT Impressions 11/27/2015 3:48 PM CDT Negative. RECOMMENDATION: Annual screening mammography. BI-RADS ASSESSMENT: 1: Negative. LETTER: L1/2S Electronically signed by: ?? Letty Zamora MD 27-Nov-2015 15:48 Narrative 11/27/2015 3:48 PM CDT 27-Nov-2015 15:19:00 ??Exam: Mammo Screen Jhonatan Tomosynthesis Indications: Mammogram screening breast [place] ORIGINAL REPORT - 27-Nov-2015 15:48:00 EXAM: Digital Mammography Screen Bilateral Tomosynthesis Computer-aided detection equipment was used during interpretation. COMPARISON: None, this is a baseline screening exam. DENSITY: d. The breast(s) are extremely dense, which lowers the sensitivity of mammography. FINDINGS: No mammographic findings of malignancy. Procedure Note Yuan Zamora M.D. - 10/19/2017 27-Nov-2015 15:19:00 Exam: Mammo Screen Jhonatan Tomosynthesis Indications: Mammogram screening breast [place] ORIGINAL REPORT - 27-Nov-2015 15:48:00 EXAM: Digital Mammography Screen Bilateral Tomosynthesis Computer-aided detection equipment was used during interpretation. COMPARISON: None, this is a baseline screening exam. DENSITY: d. The breast(s) are extremely dense, which lowers thesensitivity of mammography. FINDINGS: No mammographic findings of malignancy. IMPRESSION: Negative. RECOMMENDATION: Annual screening mammography. BI-RADS ASSESSMENT: 1: Negative. LETTER: L1/2S Electronically signed by: Letty Zamora MD 27-Nov-2015 15:48 Beatrice Henao M.D. IMG BI PROCEDUR ES * Pathology NIGHT WAREHOUSE MANAGER Cytology (11/27/2015 2:35 PM CDT) 11/27/2015 2:35 PM CDT Narrative [facility] - 12/04/2015 10:39 AM CDT Pat: KINJAL TURCIOS ([id number]) Age/Sex: 40 ??F ??Loc: ? -00 ([place] ) [facility] ??SHLOMO: 11/27/15 14:35 ??REC: 11/27/15 14:35 ??PHYS: , Cytology ?ThinPrep cervical specimen Patient Name: KINJAL TURCIOS MR#: [id number] Submitting Physician: BEATRICE ??CHELO SALVADOR ??[id number] Specimen #[id number] Performing Lab: ??[address] [address] CLINICAL HISTORY: Last menstrual period: Status: Specimen Source: Cervical Pap Type: Routine Pap Clinical History/Status: Other Ancillary Testing: Perform HPV High Risk Hormone Therapy: No Pap Specimen: Thin Prep Last Menstrual Period: 11/06/2015 Source: ThinPrep cervical specimen [ThinPrep vial] Diagnosis Specimen Adequacy: Satisfactory for interpretation : endocervical or transformation zone component present. General Categorization: Negative for intraepithelial lesion or malignancy. Comment HPV with Genotyping, PCR, ThinPrep, testing performed by [facility] [employer] HPV High Risk type 16, PCR ? NEGATIVE HPV High Risk type 18, PCR ? NEGATIVE HPV other High Risk types, PCR ? NEGATIVE The PAP smear is not a diagnostic procedure and should not be used as the sole means to detect cervical cancer. ??It is only a screening procedure to aid in the detection of cervical cancer and its precursors. ??Both false-negative and false-positive results have been experienced. Beatrice Henao M.D. LAB PAP COPATH ORDERABLES [facility] from Last 3 Months or Most Recently Relevant to Health Maintenance Care Teams Dishwasher Preparer Relationship Specialty Start Date End Date Elsewhere, Pcp PCP - General Internal Medicine 11/07/22
--- OUTSIDE RECORDS SUMMARY | 2023-11-14 07:26 | XMS_ITS | Encounter Summary ---
Author Name Unknown Organization [facility] Address [address] [place] [address] Care Team Providers Care Tong Hooker Name Role Phone Mk Dodge OD Unavailable Frw, None Primary Care Provider Unavailabl e Frw, None Unavailable Unavailable Encounter Details Date Type Department Care Team (Late st Contact Info) Description 01/14/2011 4:24 PM CDT [facility] in [facility] [address] [place] [id number] [place] [address] Social History Tobacco Use Types Packs/Day Years [...] on filedocumented in this encounter Care Teams Tong Hooker Relationship Specialty Start Date End Date Mk Dodge, OD [facility] [address] [place] [address] [address] [place] [address] PCP - Ophthalmology 04/21/08 Frw, None PCP - General Family Practice 08/25/10 03/23/17 Frw, None PCP - Obstetrics/Gynecology Family Practice 08/25/10 documented as of this encounter
--- OUTSIDE RECORDS SUMMARY | 2023-11-14 07:26 | XMS_ITS | Encounter Summary ---
Author Name Unknown Organization [facility] Address [address] [place] [address] Care Team Providers Care Engraved Roller Inspector Name Role Phone Mk Dodge OD Unavailable [phone] Frw, None Primary Care Provider Unavailabl e Frw, None Unavailable Unavailable No Ref-Primary, Physician Primary Care Provider Encounter Details Date Type Department Care Team (Late st Contact Info) Description 08/27/2010 MyC Medical Advice [facility] in [place] PROPOSAL EDITOR [address] [place] [address] Ailyn Leyva, LAQUITA [facility] [address] [place], [place] [id number] Social History Tobacco Use Types Packs/Day Years [...] on filedocumented in this encounter Care Teams Engraved Roller Inspector Relationship Specialty Start Date End Date Mk Dodge, OD [facility] [address] [place] [address] PCP - Ophthalmology 04/21/08 Frw, None PCP - General Family Practice 08/25/10 03/23/17 Frw, None PCP - Obstetrics/Gynecology Family Practice 08/25/10 No Ref-Primary, Physician PCP - General 07/09/21 documented as of this encounter
--- OUTSIDE RECORDS SUMMARY | 2023-11-14 07:26 | XMS_ITS | Clinical Summary ---
Author Name Unknown Organization [facility] Address [address] [place] [address] Care Team Providers Care Software Applications Designer Name Role Phone Elsewhere, Pcp Primary Care Provider Unavailabl e Source Comments Patient records contain information from all sites at [facility]. For routine questions regarding patient records, call [phone] during business hours, M-F 8:00 AM - 5:00 PM Central Time. Record requests for emergency care only can be directed to [phone] at any time.[facility] Allergies Active Allergy Reactions Criticality Noted Date [...] Asthma Mild Intermittent 05/30/2019 Allergy Seasonal 05/30/2019 Encounters Date Type Department Care Team Description 08/28/2023 12:15 PM FIREWALL ADMINISTRATOR Office Visit [facility] in [place], [place] [address] [place] [phone] Ezio Mtz P.A.-C., P.A. Sore Throat (Primary Dx); Asthma Mild Intermittent (HCC); Cough Acute Discharge Disposition: Home or Self Care from Last 3 Months Immunizations Name Administration Dates Next Due DTP [...] quad (FLUZONE/FLUARIX) (6 months and older)(PF) 04/19/2022,04/19/2019,05/18/2018 Family History Medical History Relation Name Comments Alzheimer's disease Father Cataracts Father Cataracts Grandfather 1 paternal Colon cancer Grandfather 1 paternal Prostate cancer Grandfather 2 maternal Allergy to bee venom Grandmother 1 maternal Cataracts Grandmother 1 maternal Diabetes Grandmother 1 maternal Hypothyroidism Grandmother 2 Epilepsy Mother Relation Name Status Comments Father Grandfather 1 paternal Grandfather 2 maternal Grandmother 1 maternal Grandmother 2 Mother Social History Tobacco Use Types Packs/Day Years [...] week 10/13/2022 How often do you attend chur or christian services? Patient declined 10/13/2022 Do you belong to any clubs o r organizations such as pentecostal groups, unions, fraternal or athletic groups, or [...] Answer Date Recorded PHQ-2 Score 0 03/23/2020 [facility] - Occupational Stress [...] place to sleep or slept in a nursing home (including now)? No 10/13/2022 Nutrition Answer Date [...] Sex Assigned at Female 06/29/2017 5:49 AM FIREWALL ADMINISTRATOR Gender Identity Female 06/29/2017 5:49 AM FIREWALL ADMINISTRATOR Sexual Orientation Straight 06/29/2017 5: 49 AM FIREWALL ADMINISTRATOR Last Filed Vital Signs Vital Sign Reading Time Taken Comments Blood Pressure 114/59 04/24/2023 7:46 AM CDT Pulse 70 04/24/2023 7:46 AM CDT Temperature 36.7 ??C (98 ??F) 08/28/2023 12:28 PM FIREWALL ADMINISTRATOR Respiratory Rate 16 04/24/2023 7:46 AM CDT Oxygen Saturation 98% 03/23/2020 7:38 AM CDT Inhaled Oxygen Concentration - - Weight 55.8 kg (123 lb 0.3 oz) 04/24/2023 7:46 A M CDT Height 159 cm (5' 2.6) 08/29/2022 10:50 AM FIREWALL ADMINISTRATOR Body Mass Index 22.07 08/29/2022 10:50 AM FIREWALL ADMINISTRATOR Plan of Treatment Health Maintenance Due Date Last Done Comments CT Colonography 1973 Cologuard 1973 Colonoscopy 1973 Colorectal Cancer Screening 1973 FIT 1973 HIV Screening 1973 Hepatitis C Screening 1973 Pneumococcal vaccine (0-64 y ears) (1 of 2 - PCV) 1979 Mammogram 11/26/2016 11/27/2015 Cervical Cancer Screening 11/26/2018 11/27/2015 Asthma Action Plan 05/30/2019 Asthma Control Test Questionnaire 05/30/2019 DTaP,Tdap,and Td Vaccines (5 - Td or Tdap) 02/24/2021 02/24/2011, 11/28/1974, 1973, Additional history exists Lipid (Cholesterol) Screening 11/29/2021 11/29/2016 Fasting Glucose for Diabetes Screening 03/22/2023 03/22/2020, 02/09/2017, 11/29/2016, Additional history exists COVID-19 Vaccine ( - 2022-2 4 season) 2023 07/09/2021, 12/11/2020, 11/13/2020 Zoster Vaccines (1 of 2) 2023 Depression Screening (Annual PHQ-2) 07/24/2023 Hepatitis B Vaccines Completed 09/22/2005, 06/14/2005, 05/17/2005 Influenza Vaccine Completed 04/19/2023, , 05/04/2021, Additional history exists Procedures Procedure Name Priority Date/Time Associated Diagnosis Comments COMPREHENSIVE METABOLIC PANEL, S/P STAT 03/22/2020 10:08 AM CDT LIPID PANEL, S Routine 11/29/2016 7:04 AM CDT BI BREAST SCREENING BILATERAL WITH TOMOSYNTHESIS Routine 11/27/2015 3:19 PM CDT PATHOLOGY CIGAR MAKING SUPERVISOR CYTOLOGY Routine 6 2:35 PM CDT from [...] CDT Lavon Alvarez P.A.-C. LAB BLOOD ADD-ON [facility] [address] [place] [address], [facility] in [address] [address] * Lipid Panel (11/29/2016 7:04 AM CDT) [...] for FH and FDB is available through [facility] [employer]: FH/ADH Genetic Reflex Panel (test ADHP). Acquired (non-genetic) causes of markedly increased LDL cholesterol include cholestatic liver disease due to the presence of LpX. If a genetic form of hypercholesterolemia is suspected, family studies including biochemical testing for lipids (total cholesterol,triglycerides, LDL cholesterol and HDL cholesterol) are recommended. ??Please contact the laboratory at or the on-line test catalog at [facility] for information about how to order these tests or to speak with a genetic counselor. Further interpretation would require clinical information. Total Cholesterol/HDL Ratio 3 POWERCHART Blood 11/29/2016 7:04 AM CDT Thang Goyal P.A.-C. LAB BLOOD ADD-ON POWERCHART * BI Breast [...] signed by: Letty Zamora MD 27-Nov-2015 15:48 Wesly Henao M.D. G BI PROCEDUR ES * Pathology CIGAR MAKING SUPERVISOR Cytology (11/27/2015 2:35 PM CDT) 11/27/2015 2:35 PM CDT Narrative [facility] - 12/04/2015 10:39 AM CDT Pat: KINJAL TURCIOS ([id number]) Age/Sex: 40 ??F ??Loc: ? -00 (RWN ) [facility] ??SHLOMO: 11/27/15 14:35 ??REC: 11/27/15 14:35 ??PHYS: , Cytology ?ThinPrep cervical specimen Patient Name: KINJAL TURCIOS MR#: [id number] Submitting Physician: WESLY ??CHELO SALVADOR ??[id number] Specimen #[id number] Performing Lab: ??[place] [address] CLINICAL HISTORY: Last menstrual period: Status: Specimen [...] performed by [facility] HPV High Risk type 16, PCR ? [...] false-negative and false-positive results have been experienced. Wesly Henao M.D. LAB PAP COPATH ORDERABLES [facility] from Last 3 Months or Most Recently Relevant to Health Maintenance Care Teams Software Applications Designer Relationship Specialty Start Date End Date Elsewhere, Pcp PCP - General Internal Medicine 11/07/22
--- OUTSIDE RECORDS SUMMARY | 2023-11-14 07:26 | XMS_ITS | Encounter Summary ---
Author Name Unknown Organization [facility] Address [address] [place] [address] Care Team Providers Care Plastic Sheets Supervisor Name Role Phone Elsewhere, Pcp Primary Care Provider Unavailabl e Encounter Details Date Type Department Care Team (Late st Contact Info) Description 08/28/2023 12:15 PM SMOOTH AND BURR WORKER COMPOSITES Office Visit [facility] in [place], [place] [address] [place] [phone] Ezio Mtz, PJared-Osbaldo., P.A. [address] [place] [phone] Sore Throat (Primary Dx); Asthma Mild Intermittent (HCC); Cough Acute Discharge Disposition: Home or Self Care Social History Tobacco Use Types Packs/Day Years Used Date Smoking Tobacco: Former Smokeless Tobacco: Never Alcohol Use Standard Drinks/Week Comments Yes 0 [...] How often do you attend chur or yazidism services? Patient declined 10/13/2022 Do you belong to any clubs o r organizations such as jehovah's witness groups, unions, fraternal or athletic groups, or [...] Answer Date Recorded PHQ-2 Score 0 03/23/2020 [facility] - Occupational [...] place to sleep or slept in a senior care (including now)? No 10/13/2022 Nutrition Answer Date [...] Sex Assigned at Female 06/29/2017 5:49 AM SMOOTH AND BURR WORKER COMPOSITES Gender Identity Female 06/29/2017 5:49 AM SMOOTH AND BURR WORKER COMPOSITES Sexual Orientation Straight 06/29/2017 5: 49 AM SMOOTH AND BURR WORKER COMPOSITES documented as of this encounter Last Filed Vital Signs Vital Sign Reading Time Taken Comments Blood Pressure - - Pulse - - Temperature 36.7 ??C (98 ??F) 08/28/2023 12:28 PM SMOOTH AND BURR WORKER COMPOSITES Respiratory Rate - - Oxygen Saturation - - Inhaled Oxygen Concentration - - Weight - - Height - - Body Mass Index - - documented in this encounter Patient Instructions * Patient Instructions* Ezio Mtz P.A.-Osbaldo., P.A. - 08/28/2023 12:15 PM SMOOTH AND BURR WORKER COMPOSITES The common cold is a viral infection of the nose and throat. This is also called an upper respiratory tract infection (URI). Many adults have 2 or 3 URIs each year. A cold is usually harmless, although it might not feel that way. Common symptoms include: Low grade fever, a temperature of 100.4 degrees Fahrenheit (38 degrees Celsius) or slightly higher Cough Sore throat Head congestion or face pain Red or mattering eyes Stuffy nose or runny nose. At first the drainage from the nose may be clear. Later it may become thicker and yellow or green. Yellow or green mucus does not mean it is a bacterial infection. Ear pain or pressure Feeling tired Symptoms of a cold or URI can last 14 to 21 days. A dry, hacking cough can last up to 4 weeks. Antibiotics do NOT work in treating viral infections. Antibiotics only help to treat bacterial infections. Taking antibiotics when you do not need them is strongly discouraged. They can lead to serious and harmful side effects such as allergic reactions, rashes, C. difficile infections, diarrhea, and yeast infections. There is no cure for the common cold, but there are things you can do to help you feel better. You should: Drink plenty of fluids. Water, juice, clear broth, or warm lemon water with honey helps loosen congestion and it prevents dehydration. Avoid caffeinated drinks. They can make dehydration worse. Sleep. Adequate sleep is necessary to support your immune system so that you can recover. Get good nutrition. Eat well while you recover. Wash your hands often. Add moisture to the air. Use a humidifier or take a steamy bath. This may help loosen congestion. Avoid smoking or exposure to second hand smoke. Try over the counter cold and cough medications. Follow instructions and stop taking them when no longer needed. Fever, headache, pain or sore throat [] Acetaminophen (Tylenol??) 500-1000 mg every 4 hours as needed Maximum dose: 3000 mg of acetaminophen in 24 hours. [] Ibuprofen (Advil??, Motrin??) 400 mg every 4 hours as needed Avoid if you have kidney disease, coronary heart disease, heart failure or history of gastric ulcer or gastric surgery. Maximum dose: 2400 mg of ibuprofen in 24 hours. Additional options for sore throat [] Lozenges or throat spray with benzocaine as needed. [] Gargle with salt water several times per day. Mix ?? teaspoon of table salt in 8 ounces of warm water. Sinus drainage, sinus/nose/ear congestion [x] Saline nasal spray or saline rinse (Simply Saline???, Darke Nasal [place], Neilmed??) as needed. Saline rinses should be done gently and with distilled water (avoid tap water). [x] Steroid nasal spray (Flonase??, Nasacort??, fluticasone) as directed on package instructions. Look at your toes with the bottle vertically with it slightly pointed towards the ear on the same side. 2 sprays in each nostril daily. Can separate, 1 sprays twice daily. [] Pseudoephedrine capsules (Sudafed??) as directed on package instructions Avoid if you have high blood pressure, heart disease or take beta-blockers (atenolol, metoprolol, etc.). Do not exceed 240 mg per day. (Claritin-D or Evie-D can be used) [] Oxymetazoline nasal spray (Afrin??, Sinex???) as directed on package instructions. Do not use longer than 5 days. Cough [x] Honey 1-2 teaspoons every 4 to 6 hours as needed [x] Cough drops every 4 to 6 hours as needed [x] Guaifenesin/dextromethorphan syrup (Robitussin?? DM) as directed on package instructions. Do not take if you take an antidepressant, opioid pain medication, sleeping medication, or antipsychotic medication. [x] Benzonatate 100 mg (Tessalon?? Perles) prescription only Do not exceed 6 capsules in 24 hours. Take with a full glass of water. [x] Albuterol inhaler (prescription only) puffs every hours as needed for wheezing orshortness of breath. Only recommended for patients with wheezing or history of asthma. Use with spacer. Many mrbi-upz-tehbuit cold medications contain more than one ingredient. For example, a decongestant also may have a pain reliever in it. Read the labels of cold medications to make sure you are not taking too much of any medication. When to contact your health care provider Contact your provider right away if you have any of the following: Symptoms that improved then suddenly got worse. This could be a sign of a bacterial infection. Shortness of breath, wheezing or difficulty breathing. Fever of 100.4 degrees Fahrenheit (38 degrees Celsius) or higher that lasts more than 5 days or fever that returns after not having a fever for 24 to 48 hours. Severe headache not relieved by cupy-ajb-wxfknff pain relievers. Dry mouth and urinating less than every 8 hours. Severe or new symptoms that worry you. Disclaimer: Recommendations above are intended for use in adults and teens. For dosing recommendations for children, please contact your provider. TH AND BURR WORKER COMPOSITES documented in this encounter Progress Notes * Ezio Mtz P.A.-C., P.A. - 08/28/2023 12:15 PM CST SUBJECTIVE HISTORY OF PRESENT ILLNESS 48 y.o. with sore throat for 4 days. Symptoms continue to worsen despite the use of over the counter medication. Symptoms are associated with: fever as high as 101.4F, chills, fatigue, rhinorrhea, sore throat, headache, cough, nausea, stomach ache, chest pain, chest congestion and diarrhea for 1 day . She denies nasal congestion, rhinorrhea, facial pain, vomiting, dyspnea, wheezing. Patient is able to drink fluids: yes. People around the patient do not have similar symptoms, one coworker had pneumonia. Strep throat in the past 30 days: no. History of tonsillectomy: no. Home therapy includes tessalon, robitussin DM, Mucinex Dm, albuterol inhaler, cough drops, epson baths . COVID testing: No COVID exposure: No REVIEW OF SYSTEMS See HPI. Patient Active Problem List Diagnosis Asthma Mild Intermittent (HCC) Allergy Seasonal Allergies Allergen Reactions Adhesive Tape-Silicones Rash Pollen Extracts Other (see comments) SEASONAL ALLERGIES The patient's allergies, current medications, problem list and medical history portions of the patient's history were reviewed and updated as appropriate. OBJECTIVE VITAL SIGNS Temp 36.7 ??C PHYSICAL EXAMINATION General: Pt sitting in exam room in no apparent distress with appropriate mood and affect. No muffled voice. No drooling. Sinus: Nontender to palpation. Ears: Normal TMs and canals. Throat: Uvula is in the midline, mild erythema. Anterior cervical chain adenopathy is not appreciated. Cardiac: Regular rate and rhythm, no murmurs, rubs or gallops. Lungs: Clear to auscultation without wheezes, rales or rhonchi. Skin: Warm and dry without rashes. ASSESSMENT / PLAN #1 Sore Throat #2 Asthma Mild Intermittent (HCC) #3 Cough Acute Patient with 4 days of sore throat, body aches, low grade fever and cough. Exam reveals lungs clearto auscultation with normal HEENT exam other than mild posterior erythema, with no uvular deviation. Centor criteria 1/. Strep swab was not collected. Also discussed COVID and flu swabs, but patient would defer Tamiflu and Paxlovid so we opted to treat as a viral illness with her symptoms slowly improving. No other signs of acute bacterial infections such as acute otitis media, pneumonia or bacterial sinusitis. Viral printout was provided with [id number] symptomatic treatment recommendations. Symptomatic relief discussed and include salt water gargles, Tylenol or ibuprofen for pain relief, throat lozenges, and increased fluid intake. Advised to recheck with primary if symptoms persist, new symptoms develop, or if worse in any way. Patient was in agreement with this plan and all patient questions were answered TH AND BURR WORKER COMPOSITES documented in this encounter Plan of Treatment Not on file documented as of this encounter Visit Diagnoses Diagnosis Sore Throat- Primary Asthma Mild Intermittent (HCC) Cough Acute documented in this encounter Additional Health Concerns Assessment Noted Time PHQ-9 Depression Total Score: 0 02/04/20 15 2:48 PM CDT documented as of this encounter Care Teams Plastic Sheets Supervisor Relationship Specialty Start Date End Date Elsewhere, Pcp PCP - General Internal Medicine 11/07/22 documented as of this encounter
--- OUTSIDE RECORDS SUMMARY | 2023-11-14 07:26 | XMS_ITS | Encounter Summary ---
Author Name Unknown Organization [facility] Address [address] [place] [address] Care Team Providers Care Engineering Specialist Name Role Phone Mk Dodge OD Unavailable Frw, None Primary Care Provider Unavailabl e Frw, None Unavailable Unavailable Encounter Details Date Type Department Care Team (Late st Contact Info) Description 02/23/2011 10:35 AM [facility] in [facility] [address] [place] [phone] Wen Jo MD [address] [place] [address] Social History Tobacco Use Types [...] on filedocumented in this encounter Care Teams Engineering Specialist Relationship Specialty Start Date End Date Mk Dodge, DUC [facility] [address] [place] [address] [address] [place], [place] [phone] PCP - Ophthalmology 04/21/08 Frw, None PCP - General Family Practice 08/25/10 03/23/17 Frw, None PCP - Obstetrics/Gynecology Family Practice 08/25/10 documented as of this encounter
--- OUTSIDE RECORDS SUMMARY | 2023-11-14 07:26 | XMS_ITS | Encounter Summary ---
Author Name Unknown Organization [facility] Address [address] [place] [address] Care Team Providers Care Pharmaceutical Officer Name Role Phone Mk Dodge OD Unavailable Frw, None Primary Care Provider Unavailabl e Frw, None Unavailable Unavailable Encounter Details Date Type Department Care Team (Late st Contact Info) Description 02/04/2011 9:22 AM T [facility] in [facility] [address] [place] [phone] Wen Jo MD [address] [place] [address] Social History Tobacco Use Types [...] on filedocumented in this encounter Care Teams Pharmaceutical Officer Relationship Specialty Start Date End Date Mk Dodge, DUC [facility] [address] [place] [address] [address] [place], [place] [phone] PCP - Ophthalmology 04/21/08 Frw, None PCP - General Family Practice 08/25/10 03/23/17 Frw, None PCP - Obstetrics/Gynecology Family Practice 08/25/10 documented as of this encounter
--- OUTSIDE RECORDS SUMMARY | 2023-11-14 07:26 | XMS_ITS | Encounter Summary ---
Author Name Unknown Organization [facility] Address [address] [place] [address] Care Team Providers Care Surgical Dressing Maker Name Role Phone Mk Dodge OD Unavailable [phone] Frw, None Primary Care Provider Unavailabl e Frw, None Unavailable Unavailable Encounter Details Date Type Department Care Team (Late st Contact Info) Description 10/07/2011 10:26 AM [facility] in [facility] [address] [place] [phone] [facility] [address] [place] [address] Social History Tobacco Use Types Packs/Day Years [...] on filedocumented in this encounter Care Teams Surgical Dressing Maker Relationship Specialty Start Date End Date Mk Dodge, DUC [address] [place] [address] PCP - Ophthalmology 04/21/08 Frw, None PCP - General Family Practice 08/25/10 03/23/17 Frw, None PCP - Obstetrics/Gynecology Family Practice 08/25/10 documented as of this encounter
--- OUTSIDE RECORDS SUMMARY | 2023-11-14 07:26 | XMS_ITS | Encounter Summary ---
Author Name Unknown Organization [facility] Address [address] [address] Care Team Providers Care Car Greaser Name Role Phone kM Dodge OD Unavailable Frw, None Primary Care Provider Unavailabl e Frw, None Unavailable Unavailable No Ref-Primary, Physician Primary Care Provider Encounter Details Date Type Department Care Team (Late st Contact Info) Description 02/23/2011 Hospital [facility] in [place] [facility] [address] [place] [phone] Frw, Inpatient Provider Delivery Record Social History Tobacco Use Types Packs/Day Years [...] on filedocumented in this encounter Care Teams Car Greaser Relationship Specialty Start Date End Date Mk Dodge, OD [facility] [address] [place] [phone] PCP - Ophthalmology 04/21/08 Frw, None PCP - General Family Practice 08/25/10 03/23/17 Frw, None PCP - Obstetrics/Gynecology Family Practice 08/25/10 No Ref-Primary, Physician PCP - General 07/09/21 documented as of this encounter
--- OUTSIDE RECORDS SUMMARY | 2023-11-14 07:26 | XMS_ITS ---
Author Name Unknown Organization [facility] Address [address] [place] [address] Care Team Providers Care Ocean Clam Boat Captain Name Role Phone Unavailable Unavailable Unavailable Surgery Details Not on file Complications Check Surgery Details section. Procedure Estimated Blood Loss Check Surgery Details section. Procedure Findings Check Surgery Details section. Procedure Specimens Taken Check Surgery Details section.
--- OUTSIDE RECORDS SUMMARY | 2023-11-14 07:26 | XMS_ITS | Encounter Summary ---
Author Name Unknown Organization [facility] Address [address] [place] [address] Care Team Providers Care Converting Supervisor Name Role Phone Placido Velazco MD Primary Care Provider [phone] Jean Abel MD Unavailable Unavailable Mk Dodge OD Unavailable [phone] Encounter Details Date Type Department Care Team (Late st Contact Info) Description 07/22/2010 10:46 AM [facility] in [facility] [address] [place] [phone] Pam [place] [address] Social History Tobacco Use Types Packs/Day Years [...] on filedocumented in this encounter Care Teams Converting Supervisor Relationship Specialty Start Date End Date Placido Velazco MD [facility] [address] [facility] [address] [place] [address] PCP - General 08/15/00 08/24/10 Jean Abel MD PCP - Obstetrics/Gynecology 08/15/00 Mk Dodge OD [facility] [address] [facility] [address] [place] [address] PCP - Ophthalmology 04/21/08 documented as of this encounter
--- OUTSIDE RECORDS SUMMARY | 2023-11-14 07:27 | XMS_ITS | Clinical Summary ---
Author Name Unknown Organization [facility] er Address [address] [place] [address] Care Team Providers Care Hyperbaric Technician Name Role Phone Jeanien De La Torre PA-C Primary Care Provider [phone]- [phone] Allergies Active Allergy Reactions Criticality Noted Date Comments Adhesive Tape Rash 01/08/2016 Pollen Extract Other (see comments) 10/19/2013 SEASONAL ALLERGIES Medications Medication Sig Dispensed Refills Start Date End Date Status albuterol HFA (PROVENTIL HFA;VENTOLIN HFA) 108 (90 Base) MCG/ACT inhaler Inhale 2 puffs if needed 0 02/27/2015 Active cetirizine (ZyrTEC) 10 MG tablet Take 10 mg by mouth 1 (one) time each day 0 Active fluticasone (FLONASE) 50 MCG/ACT nasal sprayIndications:Acut e sinusitis, recurrence not specified, unspecified location Administer 2 sprays into each nostril 1 (one) time each day 16 g 11 12/25/2018 Active Active Problems No known active problems Immunizations Name Administration Dates Next Due DTP 11/28/1974, 4,1973,1972 Hep B, Unspecified 09/22/2005,06/14/2005, 005 Hepatitis B 09/22/2005,06/14/2005,05/17/2005 Influenza (IM) Preservative Free 011,04/22/2010,04/06/2009,2005 Influenza 6mo-64yrs Quad Pre servative Free IM 04/19/2022,05/05/2020,04/19/2019,2017 Influenza LAIV (Nasal) 05/02/2012 Influenza TIV (IM) 05/18/2018, 7,04/08/2011,2009,04/06/2009,05/02/2008,05/09/2006,1 ,05/12/2003,05/09/2002, 001 Influenza Whole 06/14/2005 Influenza, Quadrivalent 05/02/2012 Influenza, Unspecified 05/23/2016,2013,04/08/2011,2009,04/06/2009,05/02/2008,05/09/2006,1 ,05/12/2003,05/09/2002, 001 MMR 02/24/2011,06/07/1974 Measles 03/04/1992 OPV 11/28/1974, 4,1973,1972 Tdap 02/24/2011 Tetanus 08/06/1998 Family History Medical History Relation Comments Alzheimer's disease Father Seizures Mother Stroke Mother Relation Status Comments Father Mother Alive Social History Tobacco Use Types Packs/Day Years Used Date Smoking Tobacco: Never Smokeless Tobacco: Never Tobacco Cessation:Counseling Given: Not Answered Alcohol Use Standard Drinks/Week Comments Yes 0 (1 standard drink = 0.6 oz pur e alcohol) social/rare PHQ-2 Answer Date Recorded PHQ-2 Score 0 12/25/2018 Sex and Gender Information Value Date Recorded Sex Assigned at Female 08/10/2022 7:13 AM JELLY FILTER TENDER Gender Identity Female 08/10/2022 7:13 AM JELLY FILTER TENDER Sexual Orientation Not on file Last Filed Vital Signs Vital Sign Reading Time Taken Comments Blood Pressure 114/82 08/09/2022 2:07 PM JELLY FILTER TENDER Pulse 107 08/09/2022 2:07 PM JELLY FILTER TENDER Temperature 36.7 ??C (98 ??F) 08/09/2022 2:07 PM JELLY FILTER TENDER Respiratory Rate 16 08/09/2022 2:07 PM JELLY FILTER TENDER Oxygen Saturation 98% 08/09/2022 2:07 PM JELLY FILTER TENDER Inhaled Oxygen Concentration - - Weight 56.3 kg (124 lb 3.2 oz) 08/09/2022 2:07 P M JELLY FILTER TENDER Height 158 cm (5' 2.21) 08/09/2022 2:07 PM JELLY FILTER TENDER Body Mass Index 22.57 08/09/2022 2:07 PM JELLY FILTER TENDER Plan of Treatment Health Maintenance Due Date Last Done Comments CT Colonography 1973 Colonoscopy 1973 Colorectal Cancer Screening 1973 FIT-DNA 1973 Pap Smear 1973 Sigmoidoscopy 1973 iFOBT 1973 Asthma Action Plan 1978 Asthma Control Test 1978 Pneumococcal Vaccine: Pediatrics (0 to 5 Years) and At-Risk Patients (6 to 64 Years) (1 of 2 - PCV) 1979 Mammogram 11/26/2016 11/27/2015 DTaP,Tdap,and Td Vaccines (5 - Td or Tdap) 02/24/2021 02/24/2011, 11/28/1974, 1973, Additional history exists COVID-19 Vaccine ( - season) 2023 07/09/2021, 12/11/2020, 11/13/2020 Zoster Vaccines (1 of 2) 2023 Influenza Vaccine Completed 04/19/2023, , 05/05/2020, Additional history exists HPV Vaccines Aged Out No longer eligi ble based on patient's age to complete this topic Care Teams Hyperbaric Technician Relationship Specialty Start Date End Date Jeanine De La Torre PAGabyC [address] [phone] PCP - General Family Medicine 04/04/23
--- OUTSIDE RECORDS SUMMARY | 2023-11-14 07:27 | XMS_ITS | Encounter Summary ---
Author Name Unknown Organization [facility] er Address [address] [place] [address] Care Team Providers Care Glass Sagger Name Role Phone Jeanine De La Torre PA-C Primary Care Provider [phone]- [phone] Reason for Visit * Reason Comments Med Refill Encounter Details Date Type Department Care Team (Late st Contact Info) Description 12/31/2018 Refill [place] [address] [place] [address] Madison Zamudio APRN, SUPERVISOR ANODIZING [address] [place] [id number] Acute non-recurrent sinusitis, unspecified location Social History Tobacco Use Types Packs/Day Years Used Date Smoking Tobacco: Never Smokeless Tobacco: Never PHQ-2 Answer Date Recorded PHQ-2 Score 0 12/25/2018 Sex and Gender Information Value Date Recorded Sex Assigned at Female 08/10/2022 7:13 AM EGG BREAKER Gender Identity Female 08/10/2022 7:13 AM EGG BREAKER Sexual Orientation Not on file documented as of this encounter Miscellaneous Notes * Telephone Encounter - Madison Zamudio APRN, MAURO - 01/02/2019 12:01 PM CDT The patient is on her second Zpak with improvement, therefore did no renew. * Telephone Encounter - Dinorah Cruz RN - 01/02/2019 11:42 AM CDT Patient said the chest heaviness and tightness has improved and she feels like things are starting to break-up. She said she is on day 3 of the second dose and doesn't feel like she needs a refill.You can refuse. * Telephone Encounter - Sharon Rosenberg LPN - 01/02/2019 11:29 AM CDT Last Rx azithromycin (ZITHROMAX) 250 MG tablet [[id number]] ??ENDED ?? Order Details Dose, Route, Frequency: As Directed Dispense Quantity: 6 tablet Refills: 1 Fills remaining: -- ?? Sig: Take 2 tabs (500 mg) by mouth today, than 1 daily for 4 days. ?? Written Date: 12/26/18 Expiration Date: 12/26/19 Start Date: 12/26/18 Above not found as current medication. Found in med history, short term rx prescribed for acute condition. Please review and advise patient/pharmacy if refill is/is not indicated. Thank you documented in this encounter Plan of Treatment Not on file documented as of this encounter Visit Diagnoses Diagnosis Acute non-recurrent sinusitis, unspecified location documented in this encounter Care Teams Glass Sagger Relationship Specialty Start Date End Date Jeanine De La Torre PA-C [address] [place] [phone] PCP - General Family Medicine 04/04/23 documented as of this encounter
--- OUTSIDE RECORDS SUMMARY | 2023-11-14 07:27 | XMS_ITS | Data Portability ---
Author Name Unknown Address [address] [place] [address] Phone [phone] Organization [facility] TELEPHONE SALES REPRESENTATIVE, [id number] Address [address] [place] [phone] Assessment Encounter Date Assessment Date Assessment LastModified by Organization Details LastModified Time 03/26/2020 03/26/2020 >50% of the visit was spent in consultation or coordination of care. Total time spent was ___30 minutes. Not available 03/27/2020 01:54:00 Plan of Treatment Reminders Order Date Submit Date Provider Last Modified By Organization Details Last Modified Time Details Appointments None recorded. Lab pap, LB 2019 020 [facility], [address] [place] [address], [address], 0 09:24:08 unlisted lab - HPV high risk DNA with 16/18 genotyping 2019 [facility], [facility] [place], [address], 0 09:24:08 Referral None recorded. Procedures None recorded. Surgeries None recorded. Imaging US, transvagin al 2019 020 [email or web address] 4 [id number] rtners_hazelw ood, [address] [facility], [address], [place], [address], 0 12:48:49 US, pelvis 2019 020 [id number] downs_eyal martínezod, [address] [facility], [address], [place], [address], 0 01:31:52 Medication Orders cyclobenza shannon 5 mg tablet 2019 020 [id number], [address], [place], [place], [id number], 0 12:59:05 Patient TargetsNo targets recorded. Patient Instructions Encounter Date Encounter Id Patient Instructions Last Modified By Organization Details Last Modified Time 04/24/2020 [id number] Call if you usha re a referraly for physical therapy. Consider seeing Radha Love at [facility] or Wander Hardy at [facility]. Not available 04/30/2020 16:41:57 I spent 25 minut es with patient in face to face history and medical decision making reviewing her history, her work up to date and treatment options. Given information for NAMS, lifestyle management of bladder health and options to explore physical therapy vs referral to urology. She has not tolerated first line treatments in past and had issues with cerclage so may be better candidate for bulking injections vs cloverdale tissue support for incontinence which I discussed is not done in our practice. Also discussed definitive treatment for bleeding and pain would be consideration for hysterectomy. Follow-up as needed. Not available 04/30/2020 16:42:20 03/26/2020 [id number] handling fee* [email or web address] Not available 0 03/26/2020 12:33:47 - Recommend taki ng Flexeril to help relax muscles. If this does not provide any relief, please let us know and we can discuss treatment options. - Return to clinic in a few weeks if you are interested in discussing treatments for stress incontinence. [email or web address] Not available 03/26/2020 12:59:59 - Pelvic US toda y to further evaluate abdominal pain. 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 Recommend a PAP with HPV cotesting today. - Pap performed today- will send results in mail - Discussed further differential to pain to include musculoskeletal vs GI - Pain may be heightened from increased tensing of abdominal muscles. Rx for Flexeril provided. Patient will let us know if pain has improved. -RV in 1-2 months to follow up and to further discuss DEANA Not available 03/27/2020 01:55:25 Reason for Referral None Reported. Results Created Date Observation Date Name Description Value Unit Range Abnormal Flag LastModifiedBy Organization Detail LastModifiedTime 03/26/2003/26/2020 HPV DNA, high- risk HPV high risk type 16 negati ve for HPV type 16. negati ve for HPV type 16. Not Available [facility] [address] [place], [address], 04/02/2020 09:24:08 03/26/2003/26/2020 HPV DNA, high- risk HPV high risk type 18 negati ve for HPV type 18. negati ve for HPV type 18. Not Available [facility] [address] [place], [address], 04/02/2020 09:24:08 03/26/2003/26/2020 HPV DNA, high- risk HPV other high risk types negati ve for other high risk HPV types. negati ve for other high risk HPV types. Not Available [facility] [address] [place], [address], 04/02/2020 09:24:08 03/26/2003/26/2020 pap, LB case report see note Not Available [facility] [address] [place], [address], 04/02/2020 09:24:08 04/14/20 20 US, trans vagin al No observ ation record ed. [email or web address], [place], [address], 04/14/2020 13:26:52 Result Notes None recorded. Problems No Known Problems Procedures Surgical History Date Name Laterality Status Provider Name and Address Organization Details Recorded Time 7 Date of Last Mammogram completed Meliza [facility] 03/26/2020 11:50:26 7 Date of Last Pap Smear completed Meliza Trae [facility] 03/26/2020 11:50:56 cerclage of uterine cervix completed Meliza [facility]un[facility] 03/26/2020 11:57:22 wrist excision completed Meliza [facility]un[facility] 03/26/2020 11:57:49 Imaging Results Imaging Date Name Status LastModified by Organization Details LastModified Time 04/14/2020 US, transvaginal completed [email or web address], [place], [address], 04/14/2020 13:26:52 Procedure Notes None recorded. Medical Equipment None Reported. Allergies Allergen ID Allergen Name Allergen Category Reaction Reaction Severity Criticality Documentation Date Start Date Code Code System Note Provider Name and Address Organization Details Recorded Time 896999 adhesive environme nt,medica tion rash severe Not available 03/26/2020 Meliza lagunas [facility] 0 11:48:20 Medications Name Sig Start Date Stop Date Status Note LastModified by Organization Details LastModified Time azithromycin 250 mg tablet 03/26 completed Not Available Not Available Not Available methylprednis olone 4 mg tablets in a dose pack 03/26 completed Not Available Not Available Not Available cyclobenzapri ne 5 mg tablet Take 1 tablet 3 times a day by oral route as needed for 3 days. active Not Available Not Available No t Available Aleve PRN active Not Available Not Availa ble Not Available Claritin active Not Available Not Avai lable Not Available Tylenol PRN active Not Available Not Avail able Not Available Vitals Date Recorded Body weight Body mass index (BMI) Body height Heart rate Systolic blood pressure Diastolic blood pressure Provider Name and Address Organization Details Last Updated DateTime 0 [address].6 8 g 22.1 kg/m2 157.48 cm 65 /min 120 mm[Hg] 75 mm[Hg] Meliza lagunas [facility] TELEPHONE SALES REPRESENTATIVE 0 11:47:54 Social History Question Answer Notes LastModified by Organizat ion Details LastModified Time Tobacco Smoking Status Former Smoker [facility] TELEPHONE SALES REPRESENTATIVE 03/26/2020 11:55:49 What Is Your Level Of Alcohol Consumption? Occasional Information not available 03/26/2020 What Is Your Level Of Caffeine Consumption? Heavy Daily Information not available 03/26/2020 How Much Tobacco Do You Chew? None Information not available 03/26/2020 Are You Currently Employed? Yes Information not available 03/26/2020 What Type Of Diet Are You Following? REGULAR Information not available 03/26/2020 Do You Or Have You Ever Used E-cigarettes Or Vape? 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 03/26/2020 Information not available 03/26/2020 Are You Sexually Active? Yes Information not available 03/26/2020 Are You Passively Exposed To Smoke? No Information not available 03/26/2020 Do You Or Have You Ever Used Smokeless Tobacco? Never Used Smokeless Tobacco Information not available 03/26/2020 How Much Tobacco Do You Smoke? No Information not available 03/26/2020 How Many Years Have You Smoked Tobacco? 3 Information not available 03/26/2020 Sex: Female Functional Status Question Answer Note LastModified by Organizat ion Details LastModified Time What is your exercise level? Occasional Walk daily Information not available 03/26/2020 Mental Status None recorded. Family History Relationship Description Onset Age of this Age Resolved Age Notes Mother Anxiety disorder Maternal Grandmother Diabetes mellitus Father Alzheimer's disease Medical History No medical history recorded. Gynecological History Statement/Question Response Sexually Active Y History of Abnormal PAP N History of Recurrent Ovarian Cysts Y Age at Menarche: 11 HPV Test Negative Date of Last Colonoscopy Date of Last Mammogram 07/24/2016 Date of LMP 03/09/2020 HPV Vaccine Not Applicable Menstrual Cycle Length (days) 28 History of Fibroids Y Date of Last Pap Smear 07/24/2016 Date of last bone density Obstetrics History GPAL:G 3 P 2 1 0 3 Type Value Multiple Births 0 Full Term 2 Induced 0 Spontaneous 0 Premature 1 Living 3 Ectopics 0 Total 3 Past Encounters Encounter ID Performer Location Encounter Start Date Encounter Closed Date Diagnosis/Indication Diagnosis SNOMED-CT Code [id number] WESLY ALLEN MD [id number] [facility] [address] 03/26/2020 11:30:48 03/26/2020 13:35:48 Screening for malignant neoplasm of cervix 652585750 Pain in pelvis 80783056 Abdominal pain 69697511 Female str ess incontinence 18101762 [id number] [facility]ESLY ALLEN [id number] [place] [address] 03/26/2020 12:22:57 03/26/2020 12:48:49 Abdominal pain 68734085 [id number] WESLY ALLEN [id number] [facility] [address] 04/27/2020 12:59:15 05/04/2020 09:49:13 Perimenopausal state 68180299386376 4 Female str ess incontinence 38088264 Health Concerns Section Related Observation LastModified by Organization Detai ls LastModified Time None Recorded Concern Status LastModified by Organization Details LastModified Time None Recorded Advance Directives Directive None Recorded Payers Encounter Date Sequence Insurance Name Policy Number Policy Christina Covered Member ID Christina Member ID Guarantor Name 04/24/2020 1 [facility] Kinjal Rodrigues [id number] Kinjal Rodrigues 03/26/2020 1 [facility] Kinjal Rodrigues [id number] Kinjal Rodrigues 03/26/2020 1 [facility] Kinjal Rodrigues [id number] Kinjal Gibbonsnski Notes Date Note Type Note Provider Name and Address Organization Details Recorded Time 03/26/2020 text/html HPI Notes: Referred by neighbor BC: vasectomy Menses: regular, has not had one since ER visit Stress incontinence for past few years- wears pad all the time, leaking when jumping/laughing/s neezing Symptoms gradually started two weeks ago- extreme abdominal pain that went into lower back and hips, tried Alleve/tylenol/hea ting pad- no relief Pain wakes her up at night- unable to move Pain gets better with movement Feels bloated Went to ER due to extreme pain- ordered CT scan CT Impression: mild heterogenous uterus with equivocal endometrial stripe thickening, 6.4cm left renal benign-appearing cyst Walks for exercise 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 here, overdue [place] [address], [place], [address], [employer] TELEPHONE SALES REPRESENTATIVE 03/27/2020 01:56:09 04/24/2020 text/html HPI Notes: siri gay presents for follow-up limited intake as power outtage in clinic patient seen in room with window/natural light physical exam deferred referred here by her neigbor who used to work here patient lives almost [place] away- closer to [place] was seen in March after having a couple of weeks of a fairly acute onset of pelvic pain, work up essentially normal CT and usn- suspect possible ovarian cyst vs non-senior manager. Patient endorses history of needing a cerclage with two of her pregnancies. Feels that she is at times more sensitive to medical modalities and complications. Now definitely suspects that she is perimenopausal, since she was last here she had another irregular period. She also endorses night sweats, some mood changes and DEANA. Patient wears a panty liner on a regular basis. This is interfering with [place] [id number] [facility],[address], [place], [address], [employer] TELEPHONE SALES REPRESENTATIVE 04/30/2020 16:42:33 OBGyn Episode Ob Episode Information Episode Created Date Number of Fetuses Patient Bloodtype Patient rh Status Prepregnancy Weight lbs Domestic Partner Domestic Partner Phone Father Name Natural Developer Status 03/26/20 20 1 CLOSED Fetus Data First Name Last Name Admitted to NICU Weight (g) Sex Living Outcome Pediatric Complications Fetus ID Race Codes Race Delivery Type 3940.35 3704 M Full Term 7081 Alber Calculation Initial Alber Date Initial Exam Date Initial Exam Provider Initial Ultrasound Date Last Menstrual Period Date Ultra Sound Weeks Gestation 0 Eighteen To Twenty Week Alber Update Ultra Sound Date Fundal Height At Umbil Quickening Date Ultra Sound Latest Weeks Gestation Final Alber Confirmed By Final Alber Confirmed Date Final Alber Date Ultra Sound Latest Days Gestation 0 0 Menstrual History Last Menstrual Date Menses Monthly On Bcp Conception Prior Menses Frequency Hcg Plus Date Menarche Onset Age Delivery Information Delivery Date Delivery Type Labor Anesthesia Weeks Gestation Incision Type Labor Labor Length Hrs Delivered By Post Complications Tubal Sterilization Discharge Date Comments 4 40 Discharge Information Feeding Method Contraceptive Method Maternal HG B and HCT Levels Ob Episode Information Episode Created Date Number of Fetuses Patient Bloodtype Patient rh Status Prepregnancy Weight lbs Domestic Partner Domestic Partner Phone Father Name Natural Developer Status 03/26/20 20 1 CLOSED Fetus Data First Name Last Name Admitted to NICU Weight (g) Sex Living Outcome Pediatric Complications Fetus ID Race Codes Race Delivery Type 2012.58 7704 M Prematur e 7080 Alber Calculation Initial Alber Date Initial Exam Date Initial Exam Provider Initial Ultrasound Date Last Menstrual Period Date Ultra Sound Weeks Gestation 0 Eighteen To Twenty Week Alber Update Ultra Sound Date Fundal Height At Umbil Quickening Date Ultra Sound Latest Weeks Gestation Final Alber Confirmed By Final Alber Confirmed Date Final Alber Date Ultra Sound Latest Days Gestation 0 0 Menstrual History Last Menstrual Date Menses Monthly On Bcp Conception Prior Menses Frequency Hcg Plus Date Menarche Onset Age Delivery Information Delivery Date Delivery Type Labor Anesthesia Weeks Gestation Incision Type Labor Labor Length Hrs Delivered By Post Complications Tubal Sterilization Discharge Date Comments 2 [facility] idural 33.5 Discharge Information Feeding Method Contraceptive Method Maternal HG B and HCT Levels Ob Episode Information Episode Created Date Number of Fetuses Patient Bloodtype Patient rh Status Prepregnancy Weight lbs Domestic Partner Domestic Partner Phone Father Name Natural Developer Status 03/26/20 20 1 CLOSED Fetus Data First Name Last Name Admitted to NICU Weight (g) Sex Living Outcome Pediatric Complications Fetus ID Race Codes Race Delivery Type 3430.06 2704 M Full Term 7082 Alber Calculation Initial Alber Date Initial Exam Date Initial Exam Provider Initial Ultrasound Date Last Menstrual Period Date Ultra Sound Weeks Gestation 0 Eighteen To Twenty Week Alber Update Ultra Sound Date Fundal Height At Umbil Quickening Date Ultra Sound Latest Weeks Gestation Final Alber Confirmed By Final Alber Confirmed Date Final Alber Date Ultra Sound Latest Days Gestation 0 0 Menstrual History Last Menstrual Date Menses Monthly On Bcp Conception Prior Menses Frequency Hcg Plus Date Menarche Onset Age Delivery Information Delivery Date Delivery Type Labor Anesthesia Weeks Gestation Incision Type Labor Labor Length Hrs Delivered By Post Complications Tubal Sterilization Discharge Date Comments 1 [facility] idural 38 Discharge Information Feeding Method Contraceptive Method Maternal HG B and HCT Levels
--- OUTSIDE RECORDS SUMMARY | 2023-11-14 07:27 | XMS_ITS | Continuity of Care Document ---
Author Name [facility] Organization [facility] Care Team Providers Care Calender Runner Name Role Phone [facility] Unavailable Unavailable Social History Combined list of available smoking, tobacco, and other social history from Department of Defense and Veterans Affairs facilities. Social History Type Response Date Comment Sourc e This section is an empty social history section. [facility]
== END 2023-11-14 07:24 | disposition home or self-care (01) ==
LOC: US 07:24
PROVIDERS: Visit Provider Obstetrics & Gynecology
DX: N92.0 Excessive and frequent menstruation with regular cycle (principal)
CPT/HCPCS: 76830; 76856

== ENCOUNTER 2023-11-22 14:34 | Outpatient (CLI) | payer BC, SELFPAY ==
--- OUTSIDE RECORDS SUMMARY | 2023-11-22 14:36 | XMS_ITS | Clinical Summary ---
Author Name Unknown Organization [place] Address [facility]0 [facility] [place] [address] Care Team Providers Care Bracelet Form Coverer Name Role Phone Mk Dodge OD Unavailable [phone] Frw, None Unavailable Unavailable No Ref-Primary, Physician Primary Care Provider Allergies Active Allergy Reactions Criticality Noted Date Comments No Known Drug Allergy 02/19/2008 Seasonal Allergies 11/01/2004 Medications Medication Sig Dispensed Refills Start Date End Date Status fluticasone (FLONASE) 50 MCG/ACT nasal sprayIndications:Ac nahid maxillary sinusitis [place] 1-2 sprays into both nostrils daily. 1 [...] Comments Blood Pressure 122/61 07/12/2013 6:36 PM UPSCALE SECURITY OFFICER Pulse 81 07/12/2013 6:36 PM UPSCALE SECURITY OFFICER Temperature 37 ??C (98.6 ??F) 07/12/2013 6:36 PM UPSCALE SECURITY OFFICER Respiratory Rate 16 10/26/2005 11:15 AM CDT Oxygen Saturation 96% 07/12/2013 6:36 PM UPSCALE SECURITY OFFICER Inhaled Oxygen Concentration - - Weight 48.1 kg (106 lb) 06/15/2012 1:25 PM UPSCALE SECURITY OFFICER Height 158.8 cm (5' 2.5) 10/03/2011 10:17 [...] 2 ANTIBODY (QUEST) Routine 08/25/2010 9:28 AM UPSCALE SECURITY OFFICER Supervision of other normal HCL LIPID PANEL, [...] LAB/RAD Chloride 101 94 - 109 mmol/L [facility] Carbon Dioxide 26 20 - 32 mmol/L [facility] Anion Gap 12 6 - 17 mmol/L [facility] Glucose 137(H) 60 - 99 mg/dL [facility] Urea Nitrogen 11 5 - 24 mg/dL [facility] Creatinine 0.82 0.52 - 1.04 mg/dL [facility] GFR Estimate 78 >60 mL/min/1.7 m2 [facility] GFR Estimate If Black >90 >60 mL/min/1.7 m2 [facility] Calcium 8.4(L) 8.5 - 10.4 mg/dL [facility] Blood specimen (specimen) 10/03/2011 10:54 AM CDT 10/03/2011 10:59 AM CDT Lina Rodriguez PA-C LAB - BLOOD OR DERABLES [facility] [place] [address] * HIV 1 and 2 Antibody (08/25/2010 9:28 AM UPSCALE SECURITY OFFICER) HIV 1&2 Antibody Negative NEG [facility] Blood specimen (specimen) 08/25/2010 9:28 AM UPSCALE SECURITY OFFICER 08/25/2010 9:29 AM UPSCALE SECURITY OFFICER Ailyn Leyva NP LAB - BLOOD ORDERABL ES [facility] * LIPID PANEL, REFLEX TO DIRECT LDL (04/05/2010 10:29 AM CDT) Cholesterol 176 0 - 200 mg/dL [facility] Comment: LDL Cholesterol is the primary guide to therapy. The NCEP recommends further evaluation of: patients with cholesterol <200 mg/dL if additional risk factors are present, cholesterol >240 mg/dL, triglycerides >150 mg/dL, or HDL <40 mg/dL. Triglycerides 53 0 - 150 mg/dL [facility] Comment:Fasting specimen HDL Cholesterol 57 50 - 110 mg/dL [facility] LDL Cholesterol Calculated 108 0 - 129 mg/dL [facility] Comment: LDL Cholesterol is the primary guide to therapy: LDL-cholesterol goal in high risk patients is <100 mg/dL and in very high risk patients is <70 mg/dL. VLDL-Cholesterol 11 0 - 30 mg/dL [facility] Cholesterol/HDL Ratio 3.1 0.0 - 5.0 [facility] 04/05/2010 10:2 9 AM CDT 04/05/2010 10:30 AM CDT Jean Springer MD LABORATORY [facility] [place] [address] * A THIN LAYER PAP SCREEN [G0123.000] (04/05/2010 12:00 AM CDT) PAP PETEY Begum Report Patient Name: KINJAL TURCIOS MR#: [id number] Specimen #: [id number] Collected: 04/05/2010 Received: 04/06/2010 Reported: 04/07/2010 15:06 Ordering Phy(s): JEAN SPRINGER SPECIMEN/STAIN PROCESS: Pap thin layer prep screening (Surepath) ? Pap-Cyto x 1, Reflex HPV x 1 SOURCE: Cervical, endocervical Pap thin layer prep screening (Surepath) SPECIMEN ADEQUACY: Satisfactory for evaluation. -Transformation zone component present. CYTOLOGIC INTERPRETATION: Negative for Intraepithelial Lesion or Malignancy Electronically signed out by: ABHIJIT Bolden(ASCP) Processed and screened at [facility], [facility], [facility] CLINICAL HISTORY: LMP: NO LMP RECORDED Previous normal pap: NIL, 02/10/09 Previous normal pap: NIL, 04/17/06 Previous normal pap: NIL, 5/17/05, Papanicolaou Test Limitations: ??Cervical cytology is a screening test with limited sensitivity; regular screening is critical for cancer prevention; Pap tests are primarily effective for the diagnosis/preventi on of squamous cell carcinoma, not adenocarcinomas or other cancers. TESTING LAB LOCATION: [address] [place] [address] COLLECTION SITE: Client: ??[facility] Location: FRWOB (W) COPATH 04/05/2010 04/06/2010 10: 30 AM CDT Jean Springer MD LABORATORY COP[place] from Last 3 Months or Most Recently Relevant to Health Maintenance Care Teams Bracelet Form Coverer Relationship Specialty Start Date End Date Mk Dodge OD [address] [address] PCP - Ophthalmology 04/21/08 Frw, None PCP - Obstetrics/Gynecology Family Practice 08/25/10 No Ref-Primary, Physician PCP - General 07/09/21
--- OUTSIDE RECORDS SUMMARY | 2023-11-22 14:37 | XMS_ITS | Encounter Summary ---
Author Name Unknown Organization [place] Address [facility] [place] [address] Care Team Providers Care Research Compliance Specialist Name Role Phone Mk Dodge OD Unavailable Frw, None Primary Care Provider Unavailabl e Frw, None Unavailable Unavailable Encounter Details Date Type Department Care Team (Late st Contact Info) Description 01/15/2011 6:50 PM CDT [facility] in [facility] [address] [place] [phone] Claudia Meyers MD [facility] [address] [place] [address] Social History Tobacco Use Types Packs/Day Years [...] on filedocumented in this encounter Care Teams Research Compliance Specialist Relationship Specialty Start Date End Date Mk oDdge, DUC [address] [place] [address] PCP - Ophthalmology 04/21/08 Frw, None PCP - General Family Practice 08/25/10 03/23/17 Frw, None PCP - Obstetrics/Gynecology Family Practice 08/25/10 documented as of this encounter
--- OUTSIDE RECORDS SUMMARY | 2023-11-22 14:37 | XMS_ITS | Encounter Summary ---
Author Name Unknown Organization [place] Address [address] [place] [address] Care Team Providers Care Boiler Fireman Name Role Phone Mk Dodge OD Unavailable Frw, None Primary Care Provider Unavailabl e Frw, None Unavailable Unavailable Encounter Details Date Type Department Care Team (Late st Contact Info) Description 02/23/2011 10:35 AM [facility] [address] [phone] Wen Jo MD [address] [place] [address] Social History Tobacco Use Types [...] on filedocumented in this encounter Care Teams Boiler Fireman Relationship Specialty Start Date End Date Mk Dodge, DUC [facility] [address] [place] [address] [address] [place], [place] [phone] PCP - Ophthalmology 04/21/08 Frw, None PCP - General Family Practice 08/25/10 03/23/17 Frw, None PCP - Obstetrics/Gynecology Family Practice 08/25/10 documented as of this encounter
--- OUTSIDE RECORDS SUMMARY | 2023-11-22 14:37 | XMS_ITS ---
Author Name Unknown Organization [facility] Address [address] [place] [address] Care Team Providers Care Sales And Operations Trainee Name Role Phone Unavailable Unavailable Unavailable Surgery Details Not on file Complications Check Surgery Details section. Procedure Estimated Blood Loss Check Surgery Details section. Procedure Findings Check Surgery Details section. Procedure Specimens Taken Check Surgery Details section.
--- OUTSIDE RECORDS SUMMARY | 2023-11-22 14:37 | XMS_ITS | Encounter Summary ---
Author Name Unknown Organization [place] Address [address] [place] [address] Care Team Providers Care Grain Sacker Name Role Phone Mk Dodge OD Unavailable [phone] Frw, None Primary Care Provider Unavailabl e Frw, None Unavailable Unavailable Encounter Details Date Type Department Care Team (Late st Contact Info) Description 10/07/2011 10:26 AM [facility] in [facility] [address] [place] [phone] Lina Rodriguez PA-C [facility] [address] [place] [address] Social History Tobacco Use Types Packs/Day Years [...] on filedocumented in this encounter Care Teams Grain Sacker Relationship Specialty Start Date End Date Mk Dodge, DUC [address] [place] [address] PCP - Ophthalmology 04/21/08 Frw, None PCP - General Family Practice 08/25/10 03/23/17 Frw, None PCP - Obstetrics/Gynecology Family Practice 08/25/10 documented as of this encounter
--- OUTSIDE RECORDS SUMMARY | 2023-11-22 14:37 | XMS_ITS | Referral Summary ---
Author Name Unknown Organization [place] Address [facility] [place] [address] Care Team Providers Care Propulsion Motor And Generator Repairer Name Role Phone Mk Dodge OD Unavailable Frw, None Unavailable Unavailable No Ref-Primary, Physician Primary Care Provider Allergies Active Allergy Reactions Criticality Noted Date Comments No Known Drug Allergy 02/19/2008 Seasonal Allergies 11/01/2004 Medications Medication Sig Dispensed Refills Start Date End Date Status fluticasone (FLONASE) 50 MCG/ACT nasal sprayIndications:Ac nahid maxillary sinusitis [place] 1-2 sprays into both nostrils daily. 1 [...] Comments Blood Pressure 122/61 07/12/2013 6:36 PM DATA MANAGEMENT Pulse 81 07/12/2013 6:36 PM DATA MANAGEMENT Temperature 37 ??C (98.6 ??F) 07/12/2013 6:36 PM DATA MANAGEMENT Respiratory Rate 16 10/26/2005 11:15 AM CDT Oxygen Saturation 96% 07/12/2013 6:36 PM DATA MANAGEMENT Inhaled Oxygen Concentration - - Weight 48.1 kg (106 lb) 06/15/2012 1:25 PM DATA MANAGEMENT Height 158.8 cm (5' 2.5) 10/03/2011 10:17 AM CD T Body Mass Index 19.08 10/03/2011 10:17 AM CDT Plan of Treatment Not on file Procedures Procedure Name Priority Date/Time Associated Diagnosis Comments BASIC METABOLIC PANEL Routine 10/03/2011 10:54 AM CDT Left sided abdominal pain Left flank pain Fever, unspecified Nausea and vomiting Dizziness HIV 1 AND 2 ANTIBODY (QUEST) Routine 08/25/2010 9:28 AM DATA MANAGEMENT Supervision of other normal HCL LIPID PANEL, REFLEX TO DIRECT LDL Routine 04/05/2010 10:29 AM CDT Lipid Screening HCL PAP THIN LAYER SCREEN Routine 04/05/2010 12:00 AM CDT Screening for Malignant Neoplasm of the Cervix from Last 3 Months or Most Recently Relevant to Health Maintenance Results * (ABNORMAL) Basic metabolic panel (10/03/2011 10:54 AM CDT) Sodium 139 133 - 144 mmol/L [facility] Potassium 3.6 3.4 - 5.3 mmol/L [facility] Chloride 101 94 - 109 mmol/L [facility] Carbon Dioxide 26 20 - 32 mmol/L [facility] Anion Gap 12 6 - 17 mmol/L [facility] Glucose 137(H) 60 - 99 mg/dL [facility] Urea Nitrogen 11 5 - 24 mg/dL [facility] Creatinine 0.82 0.52 - 1.04 mg/dL [facility] GFR Estimate 78 >60 mL/min/1.7 m2 [facility] GFR Estimate If Black >90 >60 mL/min/1.7 m2 [facility] Calcium 8.4(L) 8.5 - 10.4 mg/dL [facility] Blood specimen (specimen) 10/03/2011 10:54 AM CDT 10/03/2011 10:59 AM CDT Lina Rodriguez PA-C LAB - BLOOD OR DERABLES Performing Organization Address City[facility]/ZIP Co de Phone Number [facility] [place] [address] * HIV 1 and 2 Antibody (08/25/2010 9:28 AM DATA MANAGEMENT) HIV 1&2 Antibody Negative NEG [facility] Blood specimen (specimen) 08/25/2010 9:28 AM DATA MANAGEMENT 08/25/2010 9:29 AM DATA MANAGEMENT Ailyn eLyva NP LAB - BLOOD ORDERABL ES Performing Organization Address [facility]/ZIP Co de Phone Number [facility] * LIPID PANEL, REFLEX TO DIRECT LDL (04/05/2010 10:29 AM CDT) Cholesterol 176 0 - 200 mg/dL [facility] Comment: LDL Cholesterol is the primary guide to therapy. The NCEP recommends further evaluation of: patients with cholesterol <200 mg/dL if additional risk factors are present, cholesterol >240 mg/dL, triglycerides >150 mg/dL, or HDL <40 mg/dL. Triglycerides 53 0 - 150 mg/dL [facility] Comment:Fasting specimen HDL Cholesterol 57 50 - 110 mg/dL [facility] LDL Cholesterol Calculated 108 0 - 129 mg/dL [facility] Comment: LDL Cholesterol is the primary guide to therapy: LDL-cholesterol goal in high risk patients is <100 mg/dL and in very high risk patients is <70 mg/dL. VLDL-Cholesterol 11 0 - 30 mg/dL [facility] Cholesterol/HDL Ratio 3.1 0.0 - 5.0 [facility] 04/05/2010 10:2 9 AM CDT 04/05/2010 10:30 AM CDT Jean Springer MD LABORATORY [facility] [place] [address] * A THIN LAYER PAP SCREEN [G0123.000] (04/05/2010 12:00 AM CDT) PAP NIL COPATH Copath Report Patient Name: KINJAL TURCIOS MR#: [id number] Specimen #: [id number] Collected: 04/05/2010 Received: 04/06/2010 Reported: 04/07/2010 15:06 Ordering Phy(s): JEAN SPRINGER SPECIMEN/STAIN PROCESS: Pap thin layer prep screening (Surepath) ? Pap-Cyto x 1, Reflex HPV x 1 SOURCE: Cervical, endocervical Pap thin layer prep screening (Surepath) SPECIMEN ADEQUACY: Satisfactory for evaluation. -Transformation zone component present. CYTOLOGIC INTERPRETATION: Negative for Intraepithelial Lesion or Malignancy Electronically signed out by: ABHIJIT Bolden(ASCP) Processed and screened at [facility], [facility] CLINICAL HISTORY: LMP: NO LMP RECORDED Previous normal pap: NIL, 02/10/09 Previous normal pap: NIL, 04/17/06 Previous normal pap: NIL, 12/07/04, Papanicolaou Test Limitations: ??Cervical cytology is a screening test with limited sensitivity; regular screening is critical for cancer prevention; Pap tests are primarily effective for the diagnosis/preventi on of squamous cell carcinoma, not adenocarcinomas or other cancers. TESTING LAB LOCATION: [address] [place] [address] COLLECTION SITE: Client: ??[facility] Location: FRWOB (W) COPATH 04/05/2010 04/06/2010 10: 30 AM CDT Jean Springer MD LABORATORY COP[place] from Last 3 Months or Most Recently Relevant to Health Maintenance Care Teams Propulsion Motor And Generator Repairer Relationship Specialty Start Date End Date Mk Dodge, DUC [facility] [address] [facility] [address] [place] [address] PCP - Ophthalmology 04/21/08 Frw, None PCP - Obstetrics/Gynecology Family Practice 08/25/10 No Ref-Primary, Physician PCP - General 07/09/21
--- OUTSIDE RECORDS SUMMARY | 2023-11-22 14:37 | XMS_ITS | Encounter Summary ---
Author Name Unknown Organization [place] Address [address] [place] [address] Care Team Providers Care Computer Tester Name Role Phone Placido Velazco MD Primary Care Provider [phone] Jean Abel MD Unavailable Unavailable Mk Dodge OD Unavailable [phone] Frw, None Primary Care Provider Unavailabl e Frw, None Unavailable Unavailable No Ref-Primary, Physician Primary Care Provider Encounter Details Date Type Department Care Team (Late st Contact Info) Description 02/25/2008 MyC Medical Advice [facility] in [place] OFFSET PROOF PRESS OPERATOR [address] [place] [phone] Jean Abel MD Social History Tobacco Use [...] on filedocumented in this encounter Care Teams Computer Tester Relationship Specialty Start Date End Date Placido Velazco MD [facility] [address] [facility] [address] [place] [address] PCP - General 08/15/00 08/24/10 Jean Abel MD PCP - Obstetrics/Gynecology 08/15/00 08/24/10 Mk Dodge OD [facility] [place] [address] [facility] [address] [place] [address] PCP - Ophthalmology 04/21/08 Frw, None PCP - General Family Practice 08/25/10 03/23/17 Frw, None PCP - Obstetrics/Gynecology Family Practice 08/25/10 No Ref-Primary, Physician PCP - General 07/09/21 documented as of this encounter
--- OUTSIDE RECORDS SUMMARY | 2023-11-22 14:37 | XMS_ITS | Encounter Summary ---
Author Name Unknown Organization [place] Address [address] [place] [address] Care Team Providers Care Core Dipper Name Role Phone Placido Velazco MD Primary Care Provider [phone] Jean Abel MD Unavailable Unavailable Mk Dodge OD Unavailable [phone] Frw, None Primary Care Provider Unavailabl e Frw, None Unavailable Unavailable No Ref-Primary, Physician Primary Care Provider Encounter Details Date Type Department Care Team (Late st Contact Info) Description 04/08/2010 MyC Medical Advice [facility] in [place] SOCIAL MEDIA SR STRATEGY MANAGER [address] [place] [phone] Jean Abel MD Social History Tobacco Use [...] on filedocumented in this encounter Care Teams Core Dipper Relationship Specialty Start Date End Date Placido Velazco MD [facility] [address] [facility] [place] [phone] PCP - General 1/23/01 2/1/11 Jean Abel MD PCP - Obstetrics/Gynecology 08/15/00 08/24/10 Mk Dodge OD [facility] [address] [facility] [address] [place] [address] PCP - Ophthalmology 04/21/08 Frw, None PCP - General Family Practice 08/25/10 03/23/17 Frw, None PCP - Obstetrics/Gynecology Family Practice 08/25/10 No Ref-Primary, Physician PCP - General 07/09/21 documented as of this encounter
--- OUTSIDE RECORDS SUMMARY | 2023-11-22 14:37 | XMS_ITS | Encounter Summary ---
Author Name Unknown Organization [place] Address [address] [place] [address] Care Team Providers Care Marketing Analytics Specialist Name Role Phone Mk Dodge OD Unavailable [phone] Frw, None Primary Care Provider Unavailabl e Frw, None Unavailable Unavailable No Ref-Primary, Physician Primary Care Provider Encounter Details Date Type Department Care Team (Late st Contact Info) Description 02/23/2011 [facility] [place] [facility] [address] [place] [address] Frw, Inpatient Provider Delivery Record [...] on filedocumented in this encounter Care Teams Marketing Analytics Specialist Relationship Specialty Start Date End Date Mk Dodge, OD [facility] [address] [place] [phone] PCP - Ophthalmology 04/21/08 Frw, None PCP - General Family Practice 08/25/10 03/23/17 Frw, None PCP - Obstetrics/Gynecology Family Practice 08/25/10 No Ref-Primary, Physician PCP - General 07/09/21 documented as of this encounter
--- OUTSIDE RECORDS SUMMARY | 2023-11-22 14:37 | XMS_ITS | Encounter Summary ---
Author Name Unknown Organization [place] Address [address] [place] [address] Care Team Providers Care Day Care Provider Name Role Phone Placido Velazco MD Primary Care Provider [phone] Jean Abel MD Unavailable Unavailable Mk Dodge OD Unavailable [phone] Encounter Details Date Type Department Care Team (Late st Contact Info) Description 07/22/2010 10:46 AM [facility] in [facility] [address] [place] [address] Pam [place] [address] Social History Tobacco Use Types Packs/Day Years [...] on filedocumented in this encounter Care Teams Day Care Provider Relationship Specialty Start Date End Date Placido Velazco MD [facility] [address] [facility] [address] [place] [address] PCP - General 08/15/00 08/24/10 Jean Abel MD PCP - Obstetrics/Gynecology 08/15/00 Mk Dodge OD [facility] [place] [address] [facility] [address] [place] [address] PCP - Ophthalmology 04/21/08 documented as of this encounter
--- OUTSIDE RECORDS SUMMARY | 2023-11-22 14:37 | XMS_ITS | Referral Summary ---
Author Name Unknown Organization [facility] Address [address] [place] [address] Care Team Providers Care Dean Of Chapel Name Role Phone Elsewhere, Pcp Primary Care Provider Unavailabl e Source Comments Patient records contain information from all sites at [facility]. For routine questions regarding patient records, call [phone] during business hours, M-F 8:00 AM - 5:00 PM Central Time. Record requests for emergency care only can be directed to [phone] at any time.[facility] Encounters Date Type Department Care Team Description 08/28/2023 12:15 PM KNITTING MACHINE TENDER Office Visit Express Care in [address] [address] Ezio Mtz, PKellieA.-C., P.A. Sore [...] week 10/13/2022 How often do you attend [facility] or jain services? Patient declined 10/13/2022 Do you belong to any clubs o r organizations such as advent groups, unions, fraternal or athletic groups, or [...] Answer Date Recorded PHQ-2 Score 0 03/23/2020 [facility] [place] of Occupat ional Health - Occupational Stress [...] place to sleep or slept in a [place] health care facility (including now)? No 10/13/2022 Nutrition Answer Date [...] Sex Assigned at Female 06/29/2017 5:49 AM KNITTING MACHINE TENDER Gender Identity Female 06/29/2017 5:49 AM KNITTING MACHINE TENDER Sexual Orientation Straight 06/29/2017 5: 49 AM KNITTING MACHINE TENDER Last Filed Vital Signs Vital Sign Reading Time Taken Comments Blood Pressure 114/59 04/24/2023 7:46 AM CDT Pulse 70 04/24/2023 7:46 AM CDT Temperature 36.7 ??C (98 ??F) 08/28/2023 12:28 PM KNITTING MACHINE TENDER Respiratory Rate 16 04/24/2023 7:46 AM CDT Oxygen Saturation 98% 03/23/2020 7:38 AM CDT Inhaled Oxygen Concentration - - Weight 55.8 kg (123 lb 0.3 oz) 04/24/2023 7:46 A M CDT Height 159 cm (5' 2.6) 08/29/2022 10:50 AM KNITTING MACHINE TENDER Body Mass Index 22.07 08/29/2022 10:50 AM KNITTING MACHINE TENDER Plan of Treatment Not on file Procedures Procedure Name Priority Date/Time Associated Diagnosis Comments COMPREHENSIVE METABOLIC PANEL, S/P STAT 03/22/2020 10:08 AM CDT LIPID PANEL, S Routine 11/29/2016 7:04 AM CDT BI BREAST SCREENING BILATERAL WITH TOMOSYNTHESIS Routine 11/27/2015 3:19 PM CDT PATHOLOGY EXECUTIVE VICE PRESIDENT AND CHIEF OPERATING OFFICER CYTOLOGY Routine 6 2:35 PM CDT from [...] CDT Lavon Alvarez P.A.-C. LAB BLOOD ADD-ON [facility] [address] [place] [address], [facility] CNFL [facility] [place] [address] * Lipid Panel (11/29/2016 7:04 AM CDT) [...] FH and FDB is available through [employer]: FH/ADH Genetic Reflex Panel (test ADHP). Acquired (non-genetic) causes of markedly increased LDL cholesterol include cholestatic liver disease due to the presence of LpX. If a genetic form of hypercholesterolemia is suspected, family studies including biochemical testing for lipids (total cholesterol,triglycerides, LDL cholesterol and HDL cholesterol) are recommended. ??Please contact the laboratory at or the on-line test catalog at [employer] for information about how to order these [...] M.D. IMG BI PROCEDUR ES * Pathology EXECUTIVE VICE PRESIDENT AND CHIEF OPERATING OFFICER Cytology (11/27/2015 2:35 PM CDT) 11/27/2015 2:[address] [facility] - 12/04/2015 10:39 AM CDT Pat: KINJAL TURCIOS ([id number]) Age/Sex: 40 ??F ??Loc: ? -00 ([place] ) CoPath ??SHLOMO: 11/27/15 14:35 ??REC: 11/27/15 14:35 ??PHYS: , Cytology ?ThinPrep cervical specimen Patient Name: KINJAL TURCIOS MR#: [id number] Submitting Physician: BEATRICE ??CHELO SALVADOR ??[id number] Specimen #[id number] Performing Lab: ??[address] [address] CLINICAL HISTORY: Last menstrual period: Status: Specimen [...] PCR, ThinPrep, testing performed by [facility] i2we HPV High Risk type 16, PCR ? [...] Beatrice Henao M.D. LAB PAP COPATH ORDERABLES [facility] from Last 3 Months or Most Recently Relevant to Health Maintenance Care Teams Dean Of Chapel Relationship Specialty Start Date End Date Elsewhere, Pcp PCP - General Internal Medicine 11/07/22
--- OUTSIDE RECORDS SUMMARY | 2023-11-22 14:37 | XMS_ITS | Encounter Summary ---
Author Name Unknown Organization [facility] Address [address] [place] [address] Care Team Providers Care Electronic Engineering Technician Name Role Phone Mk Dodge OD Unavailable [phone] Frw, None Primary Care Provider Unavailabl e Frw, None Unavailable Unavailable Encounter Details Date Type Department Care Team (Late st Contact Info) Description 02/04/2011 9:22 AM T [facility] in [facility] [address] [place] [phone] Wen Jo MD [address] [place] [address] Social History Tobacco Use Types [...] on filedocumented in this encounter Care Teams Electronic Engineering Technician Relationship Specialty Start Date End Date Mk Dodge, DUC [facility] [address] [place] [address] [address] [place], [place] [phone] PCP - Ophthalmology 04/21/08 Frw, None PCP - General Family Practice 08/25/10 03/23/17 Frw, None PCP - Obstetrics/Gynecology Family Practice 08/25/10 documented as of this encounter
--- OUTSIDE RECORDS SUMMARY | 2023-11-22 14:37 | XMS_ITS | Encounter Summary ---
Author Name Unknown Organization [facility] Address [address] [place] [address] Care Team Providers Care Rfid Systems Architect Name Role Phone Mk Dodge OD Unavailable [phone] Frw, None Primary Care Provider Unavailabl e Frw, None Unavailable Unavailable No Ref-Primary, Physician Primary Care Provider Reason for Visit * Reason Onset Date Comments Refill Request 01/19/2011 ambien Encounter Details Date Type Department Care Team (Late st Contact Info) Description 01/19/2011 Refill [facility] in [place] CONTACT PERSON [address] [place] [phone] Wen Jo MD [address] [place] [address] Refill Request (ambien) Social History [...] on filedocumented in this encounter Care Teams Rfid Systems Architect Relationship Specialty Start Date End Date Mk Dogde OD [facility] [address] [facility] [address] [place] [address] PCP - Ophthalmology 04/21/08 Frw, None PCP - General Family Practice 08/25/10 03/23/17 Frw, None PCP - Obstetrics/Gynecology Family Practice 08/25/10 No Ref-Primary, Physician PCP - General 07/09/21 documented as of this encounter
--- OUTSIDE RECORDS SUMMARY | 2023-11-22 14:37 | XMS_ITS | Encounter Summary ---
Author Name Unknown Organization [facility] Address [address] [place] [address] Care Team Providers Care Traffic Attendant Name Role Phone Mk Dodge OD Unavailable [phone] Frw, None Primary Care Provider Unavailabl e Frw, None Unavailable Unavailable Encounter Details Date Type Department Care Team (Late st Contact Info) Description 01/06/2011 11:00 AM T [facility] in [facility] [address] [place] [phone] Wen Jo MD [address] [place] [address] Social History Tobacco Use Types [...] on filedocumented in this encounter Care Teams Traffic Attendant Relationship Specialty Start Date End Date Mk Dodge, DUC [facility] [address] [place] [address] [address] [place], [place] [phone] PCP - Ophthalmology 04/21/08 Frw, None PCP - General Family Practice 08/25/10 03/23/17 Frw, None PCP - Obstetrics/Gynecology Family Practice 08/25/10 documented as of this encounter
--- OUTSIDE RECORDS SUMMARY | 2023-11-22 14:37 | XMS_ITS | Encounter Summary ---
Author Name Unknown Organization [facility] Address [address] [place] [address] Care Team Providers Care Associate Dean Of Women Name Role Phone Elsewhere, Pcp Primary Care Provider Unavailabl e Encounter Details Date Type Department Care Team (Late st Contact Info) Description 08/28/2023 12:15 PM CORN MILLER Office Visit Express [facility] in [place], [place] [address] [place] [phone] Ezio Mtz, PJared-Osbaldo., P.A. [address] [place] [phone] Sore Throat (Primary Dx); Asthma Mild Intermittent [...] any clubs o r organizations such as nondenominational groups, unions, fraternal or athletic groups, or [...] Answer Date Recorded PHQ-2 Score 0 03/23/2020 [facility] of Occupat ional Health - Occupational [...] place to sleep or slept in a usp (including now)? No 10/13/2022 Nutrition Answer Date [...] Sex Assigned at Female 06/29/2017 5:49 AM CORN MILLER Gender Identity Female 06/29/2017 5:49 AM CORN MILLER Sexual Orientation Straight 06/29/2017 5: 49 AM CORN MILLER documented as of this encounter Last Filed Vital Signs Vital Sign Reading Time Taken Comments Blood Pressure - - Pulse - - Temperature 36.7 ??C (98 ??F) 08/28/2023 12:28 PM CORN MILLER Respiratory Rate - - Oxygen Saturation - - Inhaled Oxygen Concentration - - Weight - - Height - - Body Mass Index - - documented in this encounter Patient Instructions * Patient Instructions* Ezio Mtz P.A.-Osbaldo., P.A. - 08/28/2023 12:15 PM CORN MILLER The common cold is a viral infection [...] nasal spray or saline rinse (Simply Saline???, Ambridge Nasal [place], Neilmed??) as needed. Saline rinses should be [...] history of asthma. Use with spacer. Many bihq-whk-bxthptg cold medications contain more than one ingredient. [...] 48 hours. Severe headache not relieved by lciq-opt-fcuavxt pain relievers. Dry mouth and urinating less than every 8 hours. Severe or new symptoms that worry you. Disclaimer: Recommendations above are intended for use in adults and teens. For dosing recommendations for children, please contact your provider. MILLER documented in this encounter Progress Notes * [...] bacterial sinusitis. Viral printout was provided with myoy-wfv-hesykum symptomatic treatment recommendations. Symptomatic relief discussed and include salt water gargles, Tylenol or ibuprofen for pain relief, throat lozenges, and increased fluid intake. Advised to recheck with primary if symptoms persist, new symptoms develop, or if worse in any way. Patient was in agreement with this plan and all patient questions were answered MILLER documented in this encounter Plan of Treatment Not on file documented as of this encounter Visit Diagnoses Diagnosis Sore Throat- Primary Asthma Mild Intermittent (HCC) Cough Acute documented in this encounter Additional Health Concerns Assessment Noted Time PHQ-9 Depression Total Score: 0 02/04/20 15 2:48 PM CDT documented as of this encounter Care Teams Associate Dean Of Women Relationship Specialty Start Date End Date Elsewhere, Pcp PCP - General Internal Medicine 11/07/22 documented as of this encounter
--- OUTSIDE RECORDS SUMMARY | 2023-11-22 14:37 | XMS_ITS | Encounter Summary ---
Author Name Unknown Organization [facility] Address [address] [place] [address] Care Team Providers Care Nylon Mender Name Role Phone Mk Dodge OD Unavailable [phone] Frw, None Primary Care Provider Unavailabl e Frw, None Unavailable Unavailable No Ref-Primary, Physician Primary Care Provider Encounter Details Date Type Department Care Team (Late st Contact Info) Description 08/27/2010 MyC Medical Advice [facility] in [place] COSMETIC ACCOUNT COORDINATOR [address] [place] [address] Ailyn Leyva, LAQUITA [facility] [address] [place], [place] [phone] Social History Tobacco Use Types Packs/Day Years [...] on filedocumented in this encounter Care Teams Nylon Mender Relationship Specialty Start Date End Date Mk Dodge, OD [facility] [address] [place] [address] PCP - Ophthalmology 04/21/08 Frw, None PCP - General Family Practice 08/25/10 03/23/17 Frw, None PCP - Obstetrics/Gynecology Family Practice 08/25/10 No Ref-Primary, Physician PCP - General 07/09/21 documented as of this encounter
--- OUTSIDE RECORDS SUMMARY | 2023-11-22 14:37 | XMS_ITS | Clinical Summary ---
Author Name Unknown Organization [facility] Address [address] [place] [address] Care Team Providers Care Clinical Education Consultant Name Role Phone Elsewhere, Pcp Primary Care Provider Unavailabl e Source Comments Patient records contain information from all sites at [facility]. For routine questions regarding patient records, call [phone] during business hours, M-F 8:00 AM - 5:00 PM Central Time. Record requests for emergency care only can be directed to [phone] at any time.[facility] Allergies Active Allergy Reactions Criticality Noted [...] Department Care Team Description 08/28/2023 12:15 PM TOLL REPAIRER CENTRAL OFFICE Office Visit [facility] in [place], [place] [address] [place] [phone] Ezio Mtz P.A.-C., P.A. Sore Throat (Primary [...] How often do you attend chur or orthodox services? Patient declined 10/13/2022 Do you belong to any clubs o r organizations such as jewish groups, unions, fraternal or athletic groups, or [...] Answer Date Recorded PHQ-2 Score 0 03/23/2020 [facility] of Occupat ional Health - Occupational [...] place to sleep or slept in a detention (including now)? No 10/13/2022 Nutrition Answer Date [...] Sex Assigned at Female 06/29/2017 5:49 AM TOLL REPAIRER CENTRAL OFFICE Gender Identity Female 06/29/2017 5:49 AM TOLL REPAIRER CENTRAL OFFICE Sexual Orientation Straight 06/29/2017 5: 49 AM TOLL REPAIRER CENTRAL OFFICE Last Filed Vital Signs Vital Sign Reading Time Taken Comments Blood Pressure 114/59 04/24/2023 7:46 AM CDT Pulse 70 04/24/2023 7:46 AM CDT Temperature 36.7 ??C (98 ??F) 08/28/2023 12:28 PM TOLL REPAIRER CENTRAL OFFICE Respiratory Rate 16 04/24/2023 7:46 AM CDT Oxygen Saturation 98% 03/23/2020 7:38 AM CDT Inhaled Oxygen Concentration - - Weight 55.8 kg (123 lb 0.3 oz) 04/24/2023 7:46 A M CDT Height 159 cm (5' 2.6) 08/29/2022 10:50 AM TOLL REPAIRER CENTRAL OFFICE Body Mass Index 22.07 08/29/2022 10:50 AM TOLL REPAIRER CENTRAL OFFICE Plan of Treatment Health Maintenance Due Date Last Done Comments CT Colonography 1973 Cologuard 1973 Colonoscopy 1973 Colorectal Cancer Screening 1973 FIT 1973 HIV Screening 1973 Hepatitis C Screening 1973 Pneumococcal vaccine (0-64 y ears) (1 of 2 - PCV) 1979 Mammogram 11/26/2016 11/27/2015 Cervical Cancer Screening 11/26/2018 11/27/2015 Asthma Action Plan 05/30/2019 Asthma Control Test Questionnaire 05/30/2019 Asthma Management/Exacerbati on Questionnaire (AMQ/AEQ) 05/30/2019 DTaP,Tdap,and Td Vaccines (5 - Td or Tdap) 02/24/2021 02/24/2011, 11/28/1974, 1973, Additional history exists Lipid (Cholesterol) Screening 11/29/2021 11/29/2016 Fasting Glucose for Diabetes Screening 03/22/2023 03/22/2020, 02/09/2017, 11/29/2016, Additional history exists COVID-19 Vaccine (4 - 2022-2 4 season) 2023 07/09/2021, 12/11/2020, [...] TOMOSYNTHESIS Routine 11/27/2015 3:19 PM CDT PATHOLOGY INDUSTRIAL REAL ESTATE AGENT CYTOLOGY Routine 6 2:35 PM CDT from [...] CDT Lavon Alvarez P.A.-C. LAB BLOOD ADD-ON [facility] [address] [place] [address], [facility] CNFL [facility] in [address] [address] * Lipid Panel (11/29/2016 7:04 AM CDT) [...] for FH and FDB is available through [employer]: FH/ADH Genetic Reflex Panel (test ADHP). Acquired (non-genetic) causes of markedly increased LDL cholesterol include cholestatic liver disease due to the presence of LpX. If a genetic form of hypercholesterolemia is suspected, family studies including biochemical testing for lipids (total cholesterol,triglycerides, LDL cholesterol and HDL cholesterol) are recommended. ??Please contact the laboratory at or the on-line test catalog at [employer] for information about how to order these [...] Zamora MD 27-Nov-2015 15:48 Wesly Henao M.D. IMG BI PROCEDUR ES * Pathology INDUSTRIAL REAL ESTATE AGENT Cytology (11/27/2015 2:35 PM CDT) 11/27/2015 2:35 PM CDT Narrative [facility] - 12/04/2015 10:39 AM CDT Pat: KINJAL TURCIOS ([id number]) Age/Sex: 40 ??F ??Loc: ? -00 (RWN ) CoPath ??SHLOMO: 11/27/15 14:35 ??REC: 11/27/15 14:35 ??PHYS: , Cytology ?ThinPrep cervical specimen Patient Name: KINJAL TURCIOS MR#: [id number] Submitting Physician: WESLY ??CHELO SALVADOR ??[id number] Specimen #[id number] Performing Lab: ??[place] [address] CLINICAL HISTORY: Last menstrual period: Status: Specimen [...] PCR, ThinPrep, testing performed by [facility] HPV High Risk type 16, [...] Wesly Henao M.D. LAB PAP COPATH ORDERABLES [facility] from Last 3 Months or Most Recently Relevant to Health Maintenance Care Teams Clinical Education Consultant Relationship Specialty Start Date End Date Elsewhere, Pcp PCP - General Internal Medicine 11/07/22
--- OUTSIDE RECORDS SUMMARY | 2023-11-22 14:37 | XMS_ITS | Encounter Summary ---
Author Name Unknown Organization [facility] Address [address] [place] [address] Care Team Providers Care Finisher Machine Name Role Phone Placido Velazco MD Primary Care Provider [phone] Jean Abel MD Unavailable Unavailable Mk Dodge OD Unavailable [phone] Frw, None Primary Care Provider Unavailabl e Frw, None Unavailable Unavailable No Ref-Primary, Physician Primary Care Provider Encounter Details Date Type Department Care Team (Late st Contact Info) Description 02/13/2009 MyC Medical Advice [facility] in [place] LOBSTER FISHERMAN [address] [place] [phone] Jean Abel MD Social History Tobacco Use [...] on filedocumented in this encounter Care Teams Finisher Machine Relationship Specialty Start Date End Date Placido Velazco MD [facility] [address] [facility] [place] [phone] PCP - General 1/23/01 2/1/11 Jean Abel MD PCP - Obstetrics/Gynecology 08/15/00 08/24/10 Mk Dodge OD [facility] [address] [facility] [address] [place] [address] PCP - Ophthalmology 04/21/08 Frw, None PCP - General Family Practice 08/25/10 03/23/17 Frw, None PCP - Obstetrics/Gynecology Family Practice 08/25/10 No Ref-Primary, Physician PCP - General 07/09/21 documented as of this encounter
--- OUTSIDE RECORDS SUMMARY | 2023-11-22 14:37 | XMS_ITS | Encounter Summary ---
Author Name Unknown Organization [place] Address [address] [place] [address] Care Team Providers Care Gasateria Attendant Name Role Phone Placido Velazco MD Primary Care Provider [phone] Jean Abel MD Unavailable Unavailable Mk Dodge OD Unavailable [phone] Frw, None Primary Care Provider Unavailabl e Frw, None Unavailable Unavailable No Ref-Primary, Physician Primary Care Provider Encounter Details Date Type Department Care Team (Late st Contact Info) Description 02/29/2008 MyC Medical Advice [facility] in [place] HELICOPTER OFFICER [address] [place] [phone] Jean Abel MD Social History Tobacco Use [...] on filedocumented in this encounter Care Teams Gasateria Attendant Relationship Specialty Start Date End Date Placido Velazco MD [facility] [address] [facility] [address] [place] [address] PCP - General 08/15/00 08/24/10 Jean Abel MD PCP - Obstetrics/Gynecology 08/15/00 08/24/10 Mk Dodge OD [facility] [place] [address] [facility] [address] [place] [address] PCP - Ophthalmology 04/21/08 Frw, None PCP - General Family Practice 08/25/10 03/23/17 Frw, None PCP - Obstetrics/Gynecology Family Practice 08/25/10 No Ref-Primary, Physician PCP - General 07/09/21 documented as of this encounter
--- OUTSIDE RECORDS SUMMARY | 2023-11-22 14:37 | XMS_ITS | Encounter Summary ---
Author Name Unknown Organization [facility] Address [address] [place] [address] Care Team Providers Care Veterinary Milk Specialist Name Role Phone Placido Velazco MD Primary Care Provider [phone] Jean Abel MD Unavailable Unavailable Mk Dodge OD Unavailable [phone] Frw, None Primary Care Provider Unavailabl e Frw, None Unavailable Unavailable No Ref-Primary, Physician Primary Care Provider Encounter Details Date Type Department Care Team (Late st Contact Info) Description 04/05/2010 MyC Medical Advice [facility] in [place] SAMPLE PULLER [address] [place] [phone] Jean Abel MD Social History Tobacco Use [...] on filedocumented in this encounter Care Teams Veterinary Milk Specialist Relationship Specialty Start Date End Date Placido Velazco MD [facility] [address] [facility] [place] [phone] PCP - General 1/23/01 2/1/11 Jean Abel MD PCP - Obstetrics/Gynecology 08/15/00 08/24/10 Mk Dodge OD [facility] [address] [facility] [address] [place] [address] PCP - Ophthalmology 04/21/08 Frw, None PCP - General Family Practice 08/25/10 03/23/17 Frw, None PCP - Obstetrics/Gynecology Family Practice 08/25/10 No Ref-Primary, Physician PCP - General 07/09/21 documented as of this encounter
--- OUTSIDE RECORDS SUMMARY | 2023-11-22 14:37 | XMS_ITS | Encounter Summary ---
Author Name Unknown Organization [facility] Address [address] [place] [address] Care Team Providers Care Plugman Name Role Phone Mk Dodge OD Unavailable Frw, None Primary Care Provider Unavailabl e Frw, None Unavailable Unavailable Encounter Details Date Type Department Care Team (Late st Contact Info) Description 01/14/2011 4:24 PM CDT [facility] in [facility] [address] [place] [phone] Pam [place] [address] Social History Tobacco Use Types Packs/Day Years [...] on filedocumented in this encounter Care Teams Plugman Relationship Specialty Start Date End Date Mk Dodge, OD [facility] [address] [place] [address] [address] [place] [address] PCP - Ophthalmology 04/21/08 Frw, None PCP - General Family Practice 08/25/10 03/23/17 Frw, None PCP - Obstetrics/Gynecology Family Practice 08/25/10 documented as of this encounter
--- OUTSIDE RECORDS SUMMARY | 2023-11-22 14:37 | XMS_ITS | Encounter Summary ---
Author Name Unknown Organization [facility] Address [address] [place] [address] Care Team Providers Care Food Photographer Name Role Phone Mk Dodge OD Unavailable Frw, None Primary Care Provider Unavailabl e Frw, None Unavailable Unavailable Encounter Details Date Type Department Care Team (Late st Contact Info) Description 02/10/2011 1:00 PM CDT [facility] in [facility] [address] [place] [phone] Wen Jo MD [address] [place] [address] Social History Tobacco Use Types [...] on filedocumented in this encounter Care Teams Food Photographer Relationship Specialty Start Date End Date Mk Dodge, DUC [facility] [address] [place] [address] [address] [place], [place] [phone] PCP - Ophthalmology 04/21/08 Frw, None PCP - General Family Practice 08/25/10 03/23/17 Frw, None PCP - Obstetrics/Gynecology Family Practice 08/25/10 documented as of this encounter
--- OUTSIDE RECORDS SUMMARY | 2023-11-22 14:38 | XMS_ITS | Continuity of Care Document ---
Author Name [facility] Organization [facility] Care Team Providers Care Attendant Arcade Name Role Phone [facility] Unavailable Unavailable Social History Combined list of available smoking, tobacco, and other social history from Department of Defense and Veterans Affairs facilities. Social History Type Response Date Comment Sourc e This section is an empty social history section. [facility]
--- OUTSIDE RECORDS SUMMARY | 2023-11-22 14:38 | XMS_ITS | Encounter Summary ---
Author Name Unknown Organization [facility] er Address [address] [place] [address] Care Team Providers Care Hadoop Analyst Name Role Phone Jeanine De La Torre PA-C Primary Care Provider [phone] Reason for Visit * Reason Comments Med Refill Encounter Details Date Type Department Care Team (Late st Contact Info) Description 12/31/2018 Refill [facility] [address] [place] [address] Madison Zamudio APRN, BOILER COVERER [address] [place] [address] Acute non-recurrent sinusitis, unspecified location Social History Tobacco Use Types Packs/Day Years Used Date Smoking Tobacco: Never Smokeless Tobacco: Never PHQ-2 Answer Date Recorded PHQ-2 Score 0 12/25/2018 Sex and Gender Information Value Date Recorded Sex Assigned at Female 08/10/2022 7:13 AM GARBAGE PICK UP MAN Gender Identity Female 08/10/2022 7:13 AM GARBAGE PICK UP MAN Sexual Orientation Not on file documented as [...] Last Rx azithromycin (ZITHROMAX) 250 MG tablet [[id number]] ??ENDED ?? Order Details Dose, Route, Frequency: [...] location documented in this encounter Care Teams Hadoop Analyst Relationship Specialty Start Date End Date Jeanine De La Torre PA-C [address] [place] [address] PCP - General Family Medicine 04/04/23 documented as of this encounter
--- OUTSIDE RECORDS SUMMARY | 2023-11-22 14:38 | XMS_ITS | Data Portability ---
Author Name Unknown Address [address] [place] [address] Phone [phone] Organization [facility] BENCH PRECISION ASSEMBLER, [id number] Address [address] [place] [id number] Assessment Encounter Date Assessment Date Assessment LastModified by Organization Details LastModified Time 03/26/2020 03/26/2020 >50% of the visit was spent in consultation or coordination of care. Total time spent was ___30 minutes. Not available 03/27/2020 01:54:00 Plan of Treatment Reminders Order Date Submit Date Provider Last Modified By Organization Details Last Modified Time Details Appointments None recorded. Lab pap, LB 2019 020 [facility], [address] [place] [address], [address], 0 09:24:08 unlisted lab - HPV high risk DNA with 16/18 genotyping 2019 [facility], [facility] [place], [address], 0 09:24:08 Referral None recorded. Procedures None recorded. Surgeries None recorded. Imaging US, transvagin al 2019 020 [email or web address] 4 [id number] rtners_hazelw ood, [address] [facility], [address], [place], [address], 0 12:48:49 US, pelvis 2019 020 [id number]_[id number] downs_eyal martínezod, [address] [facility], [address], [place], [address], 0 01:31:52 Medication Orders cyclobenza shannon 5 mg tablet 2019 020 [id number], [address], [place], [place], [id number], 0 12:59:05 Patient TargetsNo targets recorded. Patient Instructions Encounter Date Encounter Id Patient Instructions Last Modified By Organization Details Last Modified Time 04/24/2020 [id number] Call if you usha re a referraly for physical therapy. Consider seeing Rdaha Love at [facility] or Wander Hardy at [place]. Not available 04/30/2020 16:41:57 I spent 25 [...] be better candidate for bulking injections vs eastern shoshone tissue support for incontinence which I discussed is not done in our practice. Also discussed definitive treatment for bleeding and pain would be consideration for hysterectomy. Follow-up as needed. Not available 04/30/2020 16:42:20 03/26/2020 [id number] handling fee* [email or web address] Not available 0 03/26/2020 [...] uterus looks normal, no free fluid- if dinkey operator slate etiology to pain would likely be cyst [...] ve for HPV type 16. Not Available [facility] [address] [place], [address], 04/02/2020 09:24:08 03/26/2003/26/2020 HPV DNA, high- risk HPV high risk type 18 negati ve for HPV type 18. negati ve for HPV type 18. Not Available [facility] [address] [place], [address], 04/02/2020 09:24:08 03/26/2003/26/2020 HPV DNA, high- risk HPV other high risk types negati ve for other high risk HPV types. negati ve for other high risk HPV types. Not Available [facility] [address] [place], [address], 04/02/2020 09:24:08 03/26/2003/26/2020 pap, LB case report see note Not Available [facility] [address] [place], [address], 04/02/2020 09:24:08 04/14/20 20 US, trans vagin al No observ ation record ed. [email or web address] [address], [place], [address], 04/14/2020 13:26:52 Result Notes None recorded. Problems No Known Problems Procedures Surgical History Date Name Laterality Status Provider Name and Address Organization Details Recorded Time 7 Date of Last Mammogram completed Meliza lagunas [facility] 03/26/2020 11:50:26 7 Date of Last Pap Smear completed Meliza Trae lagunas [facility] 03/26/2020 11:50:56 cerclage of uterine cervix completed Meliza lagunas [facility] 03/26/2020 11:57:22 wrist excision completed Meliza lagunas [facility] 03/26/2020 11:57:49 Imaging Results Imaging Date Name Status LastModified by Organization Details LastModified Time 04/14/2020 US, transvaginal completed [email or web address], [place], [address], 04/14/2020 13:26:52 Procedure Notes None recorded. Medical Equipment None Reported. Allergies Allergen ID Allergen Name Allergen Category Reaction Reaction Severity Criticality Documentation Date Start Date Code Code System Note Provider Name and Address Organization Details Recorded Time 677985 adhesive environme nt,medica tion rash severe Not available 03/26/[address] [facility]/GYN 0 11:48:20 Medications Name Sig Start Date [...] Address Organization Details Last Updated DateTime 0 [address].6 8 g 22.1 kg/m2 157.48 cm 65 /min 120 mm[Hg] 75 mm[Hg] Meliza lagunas VICTOR M Gaby [employer]CISION ASSEMBL[employer] 0 11:47:54 Social History Question Answer Notes LastModified by Organizat ion Details LastModified Time Tobacco Smoking Status Former Smoker VICTOR M Daly [employer]CISION ASSEM[employer]ER 03/26/2020 11:55:49 What Is Your Level Of [...] Encounter Closed Date Diagnosis/Indication Diagnosis SNOMED-CT Code [id number] WESLY ALLEN MD [id number] [address] [address] 03/26/2020 11:30:48 03/26/2020 13:35:48 Screening for malignant neoplasm of cervix 816112316 Pain in pelvis 77354285 Abdominal pain 31900838 Female str ess incontinence 81118766 [id number] WESLY ALLEN MD [id number] [facility] [place] [address] 03/26/2020 12:22:57 03/26/2020 12:48:49 Abdominal pain 82979564 [id number] WESLY ALLEN MD [id number] [facility] [address] 04/27/2020 12:59:15 05/04/2020 09:49:13 Perimenopausal state 49085362593780 4 Female str ess incontinence 03271237 Health Concerns Section Related Observation LastModified by Organization Detai ls LastModified Time None Recorded Concern Status LastModified by Organization Details LastModified Time None Recorded Advance Directives Directive None Recorded Payers Encounter Date Sequence Insurance Name Policy Number Policy Christina Covered Member ID Christina Member ID Guarantor Name 04/24/[address] [facility] Kinjal Rodrigues [id number] Kinjal Rodrigues 03/26/[address] [facility] Kinjal Rodrigues [id number] Kinjal Rodrigues 03/26/[address] 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, overdue [place]key [place] [address], [place], [address], Prong BENCH PRECISION ASSEMBLER 03/27/2020 01:56:09 04/24/2020 text/html HPI Notes: siri gay presents for follow-up limited intake as power outtage in clinic patient seen in room with window/natural light physical exam deferred referred here by her neigbor who used to work here patient lives almost [place] away- closer to [place] was seen in March after having a couple of weeks of a fairly acute onset of pelvic pain, work up essentially normal CT and usn- suspect possible ovarian cyst vs non-dinkey operator slate. Patient endorses history of needing a cerclage [...] [place] [address] [employer] [facility],[address], [place], [address], Prong BENCH PRECISION ASSEMBLER 04/30/2020 16:42:33 OBGyn Episode Ob Episode Information Episode Created Date Number of Fetuses Patient Bloodtype Patient rh Status Prepregnancy Weight lbs Domestic Partner Domestic Partner Phone Father Name Online Marketing Strategist Status 03/26/20 20 1 CLOSED Fetus Data [...] Domestic Partner Domestic Partner Phone Father Name Online Marketing Strategist Status 03/26/20 20 1 CLOSED Fetus Data [...] Domestic Partner Domestic Partner Phone Father Name Online Marketing Strategist Status 03/26/20 20 1 CLOSED Fetus Data [...] Complications Tubal Sterilization Discharge Date Comments 1 [facility] idural 38 Discharge Information Feeding Method Contraceptive Method Maternal HG B and HCT Levels
--- OUTSIDE RECORDS SUMMARY | 2023-11-22 14:38 | XMS_ITS | Clinical Summary ---
Author Name Unknown Organization [facility] er Address [address] [place] [address] Care Team Providers Care Rehabilitation Psychologist Name Role Phone Jeanine De La Torre PA-C Primary Care Provider [phone]- [phone] Allergies Active Allergy Reactions Criticality Noted Date [...] Sex Assigned at Female 08/10/2022 7:13 AM POWERTRAIN CONTROL SYSTEMS ENGINEER Gender Identity Female 08/10/2022 7:13 AM POWERTRAIN CONTROL SYSTEMS ENGINEER Sexual Orientation Not on file Last Filed Vital Signs Vital Sign Reading Time Taken Comments Blood Pressure 114/82 08/09/2022 2:07 PM POWERTRAIN CONTROL SYSTEMS ENGINEER Pulse 107 08/09/2022 2:07 PM POWERTRAIN CONTROL SYSTEMS ENGINEER Temperature 36.7 ??C (98 ??F) 08/09/2022 2:07 PM POWERTRAIN CONTROL SYSTEMS ENGINEER Respiratory Rate 16 08/09/2022 2:07 PM POWERTRAIN CONTROL SYSTEMS ENGINEER Oxygen Saturation 98% 08/09/2022 2:07 PM POWERTRAIN CONTROL SYSTEMS ENGINEER Inhaled Oxygen Concentration - - Weight 56.3 kg (124 lb 3.2 oz) 08/09/2022 2:07 P M POWERTRAIN CONTROL SYSTEMS ENGINEER Height 158 cm (5' 2.21) 08/09/2022 2:07 PM POWERTRAIN CONTROL SYSTEMS ENGINEER Body Mass Index 22.57 08/09/2022 2:07 PM POWERTRAIN CONTROL SYSTEMS ENGINEER Plan of Treatment Health Maintenance Due Date Last Done Comments CT Colonography 1973 Colonoscopy 1973 Colorectal Cancer Screening 1973 FIT-DNA 1973 Pap Smear 1973 Sigmoidoscopy 1973 iFOBT 1973 Asthma Action Plan 1978 Asthma Control Test 1978 Pneumococcal Vaccine: Pediatrics (0 to 5 Years) and At-Risk Patients (6 to 64 Years) (1 of 2 - PCV) 1979 Mammogram 11/26/2016 11/27/2015 COVID-19 Vaccine (4 - 2022- season) 2023 07/09/2021, 12/11/2020, 11/13/2020 Zoster Vaccines (1 of 2) 2023 DTaP,Tdap,and Td Vaccines (6 - Td or Tdap) 11/09/2033 11/10/2023, 02/24/2011, 11/28/1974, Additional history exists Influenza Vaccine Completed 04/19/2023, , 05/05/2020, Additional history exists HPV Vaccines Aged Out No longer eligi ble based on patient's age to complete this topic Care Teams Rehabilitation Psychologist Relationship Specialty Start Date End Date Jeanine De La Torre, PAGabyC [address] [phone] PCP - General Family Medicine 04/04/23
== END 2023-11-22 14:35 | disposition home or self-care (01) ==
LOC: NFLDREF 14:34
PROVIDERS: Visit Provider Obstetrics & Gynecology
DX: N39.3 Stress incontinence (female) (male) (principal)
CPT/HCPCS: 87086

== ENCOUNTER 2023-12-25 07:32 | Outpatient (CLI) | payer BC, SELFPAY ==
--- OUTSIDE RECORDS SUMMARY | 2023-12-25 07:35 | XMS_ITS | Encounter Summary ---
Author Organization [facility] Address [address] [place] [address] Care Team Providers Care Registered Physical Therapist Name Role Phone Mk Dodge OD Unavailable [phone] Frw, None Primary Care Provider Unavailabl e Frw, None Unavailable Unavailable No Ref-Primary, Physician Primary Care Provider Encounter Details Date Type Department Care Team (Late st Contact Info) Description 02/23/2011 [facility] Inpatient Dept [address] [place] [address] Frw, Inpatient Provider Delivery Record Social [...] on filedocumented in this encounter Care Teams Registered Physical Therapist Relationship Specialty Start Date End Date Mk Dodge, DUC [facility] [address] [place] [phone] PCP - Ophthalmology 04/21/08 Frw, None PCP - General Family Practice 08/25/10 03/23/17 Frw, None PCP - Obstetrics/Gynecology Family Practice 08/25/10 No Ref-Primary, Physician PCP - General 07/09/21 documented as of this encounter
--- OUTSIDE RECORDS SUMMARY | 2023-12-25 07:35 | XMS_ITS | Encounter Summary ---
Author Organization [facility] Address [address] [place] [address]. [place] [address] Care Team Providers Care Freight Booker Name Role Phone Mk Dodge OD Unavailable [phone] Frw, None Primary Care Provider Unavailabl e Frw, None Unavailable Unavailable Encounter Details Date Type Department Care Team (Late st Contact Info) Description 02/04/2011 9:22 AM CDT [facility] in [facility] [address] [place] [phone] Wen Jo MD [address] [place] [address] Social History Tobacco Use Types [...] on filedocumented in this encounter Care Teams Freight Booker Relationship Specialty Start Date End Date Mk Dodge OD [facility] [address] [place] [address] [address] [place], [place] [phone] PCP - Ophthalmology 04/21/08 Frw, None PCP - General Family Practice 08/25/10 03/23/17 Frw, None PCP - Obstetrics/Gynecology Family Practice 08/25/10 documented as of this encounter
--- OUTSIDE RECORDS SUMMARY | 2023-12-25 07:35 | XMS_ITS | Encounter Summary ---
Author Organization [facility] Address [address] [place] [address]. [place] [address] Care Team Providers Care Separator Tender Name Role Phone Mk Dodge OD Unavailable [phone] Frw, None Primary Care Provider Unavailabl e Frw, None Unavailable Unavailable Encounter Details Date Type Department Care Team (Late st Contact Info) Description 02/10/2011 1:00 PM CDT [facility] in [facility] [address] [place] [phone] Wen Jo MD [address] [place] [address] Social History Tobacco Use Types [...] on filedocumented in this encounter Care Teams Separator Tender Relationship Specialty Start Date End Date Mk Dodge, DUC [facility] [address] [place] [address] [address] [place], [place] [phone] PCP - Ophthalmology 04/21/08 Frw, None PCP - General Family Practice 08/25/10 03/23/17 Frw, None PCP - Obstetrics/Gynecology Family Practice 08/25/10 documented as of this encounter
--- OUTSIDE RECORDS SUMMARY | 2023-12-25 07:35 | XMS_ITS | Referral Summary ---
Author Organization [facility] Address [facility] [place] [address] Care Team Providers Care Circular Knitter Helper Name Role Phone Mk Dodge OD Unavailable [phone] Frw, None Unavailable Unavailable No Ref-Primary, Physician Primary Care Provider Allergies Active Allergy Reactions Criticality Noted Date Comments No Known Drug Allergy 02/19/2008 Seasonal Allergies 11/01/2004 Medications Medication Sig Dispensed Refills Start Date End Date Status fluticasone (FLONASE) 50 MCG/ACT nasal sprayIndications:Ac nahid maxillary sinusitis [place] 1-2 sprays into both nostrils daily. 1 [...] Comments Blood Pressure 122/61 07/12/2013 6:36 PM ANIMAL NURSE Pulse 81 07/12/2013 6:36 PM ANIMAL NURSE Temperature 37 ??C (98.6 ??F) 07/12/2013 6:36 PM ANIMAL NURSE Respiratory Rate 16 10/26/2005 11:15 AM CDT Oxygen Saturation 96% 07/12/2013 6:36 PM ANIMAL NURSE Inhaled Oxygen Concentration - - Weight 48.1 kg (106 lb) 06/15/2012 1:25 PM ANIMAL NURSE Height 158.8 cm (5' 2.5) 10/03/2011 10:17 AM CD T Body Mass Index 19.08 10/03/2011 10:17 AM CDT Plan of Treatment Not on file Procedures Procedure Name Priority Date/Time Associated Diagnosis Comments BASIC METABOLIC PANEL Routine 10/03/2011 10:54 AM CDT Left sided abdominal pain Left flank pain Fever, unspecified Nausea and vomiting Dizziness HIV 1 AND 2 ANTIBODY (QUEST) Routine 08/25/2010 9:28 AM ANIMAL NURSE Supervision of other normal HCL LIPID PANEL, REFLEX TO DIRECT LDL Routine 04/05/2010 10:29 AM CDT Lipid Screening HCL PAP THIN LAYER SCREEN Routine 04/05/2010 12:00 AM CDT Screening for Malignant Neoplasm of the Cervix from Last 3 Months or Most Recently Relevant to Health Maintenance Results * (ABNORMAL) Basic metabolic panel (10/03/2011 10:54 AM CDT) Sodium 139 133 - 144 mmol/L [facility] Potassium 3.6 3.4 - 5.3 mmol/L [facility] Chloride 101 94 - 109 mmol/L [facility] Carbon Dioxide 26 20 - 32 mmol/L [facility] Anion Gap 12 6 - 17 mmol/L [facility] Glucose 137(H) 60 - 99 mg/dL [facility] Urea Nitrogen 11 5 - 24 mg/dL [facility] Creatinine 0.82 0.52 - 1.04 mg/dL [facility] GFR Estimate 78 >60 mL/min/1.7 m2 [facility] GFR Estimate If Black >90 >60 mL/min/1.7 m2 [facility] Calcium 8.4(L) 8.5 - 10.4 mg/dL [facility] Blood specimen (specimen) 10/03/2011 10:54 AM CDT 10/03/2011 10:59 AM CDT Lina Rodriguez PA-C LAB - BLOOD OR DERABLES Performing Organization Address City/[facility]/ZIP Co de Phone Number [facility] [place] [address] * HIV 1 and 2 Antibody (08/25/2010 9:28 AM ANIMAL NURSE) HIV 1&2 Antibody Negative NEG [facility] Blood specimen (specimen) 08/25/2010 9:28 AM ANIMAL NURSE 08/25/2010 9:29 AM ANIMAL NURSE Ailyn Leyva NP LAB - BLOOD ORDERABL ES Performing Organization Address City/[facility]/ZIP Co de Phone Number [facility] * LIPID PANEL, REFLEX TO DIRECT LDL (04/05/2010 10:29 AM CDT) Cholesterol 176 0 - 200 mg/dL [facility] Comment: LDL Cholesterol is the primary guide to therapy. The NCEP recommends further evaluation of: patients with cholesterol <200 mg/dL if additional risk factors are present, cholesterol >240 mg/dL, triglycerides >150 mg/dL, or HDL <40 mg/dL. Triglycerides 53 0 - 150 mg/dL [facility] Comment:Fasting specimen HDL Cholesterol 57 50 - 110 mg/dL [facility] LDL Cholesterol Calculated 108 0 - 129 mg/dL [facility] Comment: LDL Cholesterol is the primary guide to therapy: LDL-cholesterol goal in high risk patients is <100 mg/dL and in very high risk patients is <70 mg/dL. VLDL-Cholesterol 11 0 - 30 mg/dL [facility] Cholesterol/HDL Ratio 3.1 0.0 - 5.0 [facility] 04/05/2010 10:2 9 AM CDT 04/05/2010 10:30 AM CDT Jean Springer MD LABORATORY [facility]/[place] [address] * A THIN LAYER PAP SCREEN [G0123.000] (04/05/2010 12:00 AM CDT) PAP NIL COPATH Copath Report Patient Name: KINJAL TURCIOS MR#: [id number] Specimen #: [id number] Collected: 04/05/2010 Received: 04/06/2010 Reported: 04/07/2010 15:06 Ordering Phy(s): JEAN SPRINGER SPECIMEN/STAIN PROCESS: Pap thin layer prep screening (Surepath) ? Pap-Cyto x 1, Reflex HPV x 1 SOURCE: Cervical, endocervical Pap thin layer prep screening (Surepath) SPECIMEN ADEQUACY: Satisfactory for evaluation. -Transformation zone component present. CYTOLOGIC INTERPRETATION: Negative for Intraepithelial Lesion or Malignancy Electronically signed out by: ABHIJIT Bolden(ASCP) Processed and screened at [facility], [facility] CLINICAL HISTORY: LMP: NO LMP RECORDED Previous normal pap: NIL, 02/10/09 Previous normal pap: NIL, 04/17/06 Previous normal pap: NIL, 12/07/04, Papanicolaou Test Limitations: ??Cervical cytology is a screening test with limited sensitivity; regular screening is critical for cancer prevention; Pap tests are primarily effective for the diagnosis/preventi on of squamous cell carcinoma, not adenocarcinomas or other cancers. TESTING LAB LOCATION: [address] [place] [address] COLLECTION SITE: Client: ??[facility] [employer] [facility] Location: FRWOB (W) COPATH 04/05/2010 04/06/2010 10: 30 AM CDT Jean Springer MD LABORATORY COPATH from Last 3 Months or Most Recently Relevant to Health Maintenance Care Teams Circular Knitter Helper Relationship Specialty Start Date End Date Mk Dodge, DUC [facility] [address] [facility] [address] [place] [address] PCP - Ophthalmology 04/21/08 Frw, None PCP - Obstetrics/Gynecology Family Practice 08/25/10 No Ref-Primary, Physician PCP - General 07/09/21
--- OUTSIDE RECORDS SUMMARY | 2023-12-25 07:35 | XMS_ITS | Clinical Summary ---
Author Organization [place] Address [facility] [place] [address] Care Team Providers Care Heel Slugger Name Role Phone Mk Dodge OD Unavailable [phone] Frw, None Unavailable Unavailable No Ref-Primary, Physician Primary Care Provider Allergies Active Allergy Reactions Criticality Noted Date Comments No Known Drug Allergy 02/19/2008 Seasonal Allergies 11/01/2004 Medications Medication Sig Dispensed Refills Start Date End Date Status fluticasone (FLONASE) 50 MCG/ACT nasal sprayIndications:Ac nahid maxillary sinusitis [place] 1-2 sprays into both nostrils daily. 1 [...] Comments Blood Pressure 122/61 07/12/2013 6:36 PM DIRECTOR SALES TRAINING Pulse 81 07/12/2013 6:36 PM DIRECTOR SALES TRAINING Temperature 37 ??C (98.6 ??F) 07/12/2013 6:36 PM DIRECTOR SALES TRAINING Respiratory Rate 16 10/26/2005 11:15 AM CDT Oxygen Saturation 96% 07/12/2013 6:36 PM DIRECTOR SALES TRAINING Inhaled Oxygen Concentration - - Weight 48.1 kg (106 lb) 06/15/2012 1:25 PM DIRECTOR SALES TRAINING Height 158.8 cm (5' 2.5) 10/03/2011 10:17 [...] 08/06/1998, 11/28/1974, Additional history exists COVID-19 Vaccine ( season) 2023 07/09/2021, 12/11/2020, 11/13/2020 ZOSTER IMMUNIZATION (1 of 2) 2023 PHQ-2 (once per calendar year) 2023 INFLUENZA VACCINE (Season Ended) 2024 05/04/2021, 05/05/2020, 04/19/2019, Additional history exists HEPATITIS B IMMUNIZATION Completed 006, 09/22/2005, 09/22/2005, [...] 2 ANTIBODY (QUEST) Routine 08/25/2010 9:28 AM DIRECTOR SALES TRAINING Supervision of other normal HCL LIPID PANEL, REFLEX TO DIRECT LDL Routine 04/05/2010 10:29 AM CDT Lipid Screening HCL PAP THIN LAYER SCREEN Routine 04/05/2010 12:00 AM CDT Screening for Malignant Neoplasm of the Cervix from Last 3 Months or Most Recently Relevant to Health Maintenance Results * (ABNORMAL) Basic metabolic panel (10/03/2011 10:54 AM CDT) Sodium 139 133 - 144 mmol/L [facility] Potassium 3.6 3.4 - 5.3 mmol/L [facility] Chloride 101 94 - 109 mmol/L [facility] Carbon Dioxide 26 20 - 32 mmol/L [facility] Anion Gap 12 6 - 17 mmol/L [facility] Glucose 137(H) 60 - 99 mg/dL [facility] [place] Urea Nitrogen 11 5 - 24 mg/dL [facility] Creatinine 0.82 0.52 - 1.04 mg/dL [facility] GFR Estimate 78 >60 mL/min/1.7 m2 [facility] GFR Estimate If Black >90 >60 mL/min/1.7 m2 [facility] Calcium 8.4(L) 8.5 - 10.4 mg/dL [facility] Blood specimen (specimen) 10/03/2011 10:54 AM CDT 10/03/2011 10:59 AM CDT Lina Rodriguez PA-C LAB - BLOOD OR DERABLES [facility] [place] [address] * HIV 1 and 2 Antibody (08/25/2010 9:28 AM DIRECTOR SALES TRAINING) HIV 1&2 Antibody Negative [facility] Blood specimen (specimen) 08/25/2010 9:28 AM DIRECTOR SALES TRAINING 08/25/2010 9:29 AM DIRECTOR SALES TRAINING Ailyn Leyva NP LAB - BLOOD ORDERABL ES [facility] * LIPID PANEL, REFLEX TO DIRECT LDL (04/05/2010 10:29 AM CDT) Cholesterol 176 0 - 200 mg/dL [facility] Comment: LDL Cholesterol is the primary guide to therapy. The NCEP recommends further evaluation of: patients with cholesterol <200 mg/dL if additional risk factors are present, cholesterol >240 mg/dL, triglycerides >150 mg/dL, or HDL <40 mg/dL. Triglycerides 53 0 - 150 mg/dL [facility] Comment:Fasting specimen HDL Cholesterol 57 50 - 110 mg/dL [facility] LDL Cholesterol Calculated 108 0 - 129 mg/dL [facility] Comment: LDL Cholesterol is the primary guide to therapy: LDL-cholesterol goal in high risk patients is <100 mg/dL and in very high risk patients is <70 mg/dL. VLDL-Cholesterol 11 0 - 30 mg/dL [facility] Cholesterol/HDL Ratio 3.1 0.0 - 5.0 [facility] 04/05/2010 10:2 9 AM CDT 04/05/2010 10:30 AM CDT Jean Springer MD LABORATORY [facility] [place] [address] * A THIN LAYER PAP SCREEN [G0123.000] (04/05/2010 12:00 AM CDT) PAP PETEY Begum Report Patient Name: KINJAL TURCIOS MR#: [id number] Specimen #: [id number] Collected: 04/05/2010 Received: 04/06/2010 Reported: 04/07/2010 15:06 Ordering Phy(s): JEAN SPRINGER SPECIMEN/STAIN PROCESS: Pap thin layer prep screening (Surepath) ? Pap-Cyto x 1, Reflex HPV x 1 SOURCE: Cervical, endocervical Pap thin layer prep screening (Surepath) SPECIMEN ADEQUACY: Satisfactory for evaluation. -Transformation zone component present. CYTOLOGIC INTERPRETATION: Negative for Intraepithelial Lesion or Malignancy Electronically signed out by: ABHIJIT Bolden(ASCP) Processed and screened at [facility] CLINICAL HISTORY: LMP: NO LMP RECORDED Previous normal pap: NIL, 02/10/09 Previous normal pap: NIL, 04/17/06 Previous normal pap: NIL, 12/07/04, Papanicolaou Test Limitations: ??Cervical cytology is a screening test with limited sensitivity; regular screening is critical for cancer prevention; Pap tests are primarily effective for the diagnosis/preventi on of squamous cell carcinoma, not adenocarcinomas or other cancers. TESTING LAB LOCATION: [address] [place] [address] COLLECTION SITE: Client: ??[facility] Location: FRWOB (W) COPATH 04/05/2010 04/06/2010 10: 30 AM CDT Jean Springer MD LABORATORY COPATH from Last 3 Months or Most Recently Relevant to Health Maintenance Care Teams Heel Slugger Relationship Specialty Start Date End Date Mk Dodge OD [address] [address] PCP - Ophthalmology 04/21/08 Frw, None PCP - Obstetrics/Gynecology Family Practice 08/25/10 No Ref-Primary, Physician PCP - General 07/09/21
--- OUTSIDE RECORDS SUMMARY | 2023-12-25 07:35 | XMS_ITS | Encounter Summary ---
Author Organization [place] Address [address] [place] [address]. [place] [address] Care Team Providers Care Embossing Press Operator Molded Goods Name Role Phone Mk Dodge OD Unavailable Frw, None Primary Care Provider Unavailabl e Frw, None Unavailable Unavailable Encounter Details Date Type Department Care Team (Late st Contact Info) Description 10/07/2011 10:26 AM T [facility] in [facility] [address] [place] [phone] Lina Rodriguez [facility]abyC [facility] [address] [place] [address] Social History Tobacco Use Types Packs/Day Years [...] on filedocumented in this encounter Care Teams Embossing Press Operator Molded Goods Relationship Specialty Start Date End Date Mk Dodge, OD [facility] [address] [place] [address] [address] [place] [address] PCP - Ophthalmology 9/29/08 Frw, None PCP - General Family Practice 08/25/10 03/23/17 Frw, None PCP - Obstetrics/Gynecology Family Practice 08/25/10 documented as of this encounter
--- OUTSIDE RECORDS SUMMARY | 2023-12-25 07:35 | XMS_ITS | Encounter Summary ---
Author Organization [place] Address [address] [place] [address]. [place] [address] Care Team Providers Care Sagger Preparer Name Role Phone Mk Dodge OD Unavailable [phone] Frw, None Primary Care Provider Unavailabl e Frw, None Unavailable Unavailable Encounter Details Date Type Department Care Team (Late st Contact Info) Description 02/23/2011 10:35 AM CDT [facility] in [facility] [address] [place] [phone] Wen Jo MD [address] [place] [address] Social History Tobacco Use Types [...] on filedocumented in this encounter Care Teams Sagger Preparer Relationship Specialty Start Date End Date Mk Dodge OD [facility] [address] [place] [address] [address] [place], [place] [id number] PCP - Ophthalmology 04/21/08 Frw, None PCP - General Family Practice 08/25/10 03/23/17 Frw, None PCP - Obstetrics/Gynecology Family Practice 08/25/10 documented as of this encounter
--- OUTSIDE RECORDS SUMMARY | 2023-12-25 07:36 | XMS_ITS | Encounter Summary ---
Author Organization [place] Address [address] [place] [address]. [place] [address] Care Team Providers Care Arc Furnace Operator Name Role Phone Mk Dodge OD Unavailable [phone] Frw, None Primary Care Provider Unavailabl e Frw, None Unavailable Unavailable No Ref-Primary, Physician Primary Care Provider Encounter Details Date Type Department Care Team (Late st Contact Info) Description 08/27/2010 MyC Medical Advice [facility] in [place] CHROME TANNER [address] [place] [address] Ailyn Leyva, TEST AND TURN UP TECHNICIAN [facility] [address] [place] [address] Social History Tobacco Use Types Packs/Day Years [...] on filedocumented in this encounter Care Teams Arc Furnace Operator Relationship Specialty Start Date End Date Mk Dodge, OD [facility] [address] [place] [address] PCP - Ophthalmology 04/21/08 Frw, None PCP - General Family Practice 08/25/10 03/23/17 Frw, None PCP - Obstetrics/Gynecology Family Practice 08/25/10 No Ref-Primary, Physician PCP - General 07/09/21 documented as of this encounter
--- OUTSIDE RECORDS SUMMARY | 2023-12-25 07:36 | XMS_ITS | Encounter Summary ---
Author Organization [facility] er Address [address] [place] [address] Care Team Providers Care Mineral Economist Name Role Phone Jeanine De La Torre PA-C Primary Care Provider [phone] Reason for Visit * Reason Comments Med Refill Encounter Details Date Type Department Care Team (Late st Contact Info) Description 12/31/2018 Refill [place] [address] [place] [address] Madison Zamudio APRN, BULK SEALER [address] [place] [address] Acute non-recurrent sinusitis, unspecified location Social History Tobacco Use Types Packs/Day Years Used Date Smoking Tobacco: Never Smokeless Tobacco: Never PHQ-2 Answer Date Recorded PHQ-2 Score 0 12/25/2018 Sex and Gender Information Value Date Recorded Sex Assigned at Female 08/10/2022 7:13 AM CERAMIC ENGINEERING PROFESSOR Gender Identity Female 08/10/2022 7:13 AM CERAMIC ENGINEERING PROFESSOR Sexual Orientation Not on file documented as [...] Last Rx azithromycin (ZITHROMAX) 250 MG tablet [[id number]] ??ENDED ?? Order Details Dose, Route, Frequency: [...] location documented in this encounter Care Teams Mineral Economist Relationship Specialty Start Date End Date Jeanine De La Torre PA-C [address] [place] [address] PCP - General Family Medicine 04/04/23 documented as of this encounter
--- OUTSIDE RECORDS SUMMARY | 2023-12-25 07:36 | XMS_ITS | Clinical Summary ---
Author Organization [facility] Address [address] [place] [address] Care Team Providers Care Business Continuity Manager Name Role Phone Elsewhere, Pcp Primary Care Provider Unavailabl e Source Comments Patient records contain information from all sites at [facility]. For routine questions regarding patient records, call [phone] during business hours, M-F 8:00 AM - 5:00 PM Central Time. Record requests for emergency care only can be directed to [phone] at any time.[facility] Allergies Active Allergy Reactions Criticality Noted [...] week 10/13/2022 How often do you attend [facility] or congregation services? Patient declined 10/13/2022 Do you belong to any clubs o r organizations such as jainism groups, unions, fraternal or athletic groups, or [...] Answer Date Recorded PHQ-2 Score 0 03/23/2020 [facility] - Occupational Stress Questionnaire Answer Date [...] place to sleep or slept in a prison (including now)? No 10/13/2022 Nutrition Answer Date [...] Sex Assigned at Female 06/29/2017 5:49 AM GREEN BUILDING MATERIALS DISTRIBUTOR Gender Identity Female 06/29/2017 5:49 AM GREEN BUILDING MATERIALS DISTRIBUTOR Sexual Orientation Straight 06/29/2017 5: 49 AM GREEN BUILDING MATERIALS DISTRIBUTOR Last Filed Vital Signs Vital Sign Reading Time Taken Comments Blood Pressure 114/59 04/24/2023 7:46 AM CDT Pulse 70 04/24/2023 7:46 AM CDT Temperature 36.7 ??C (98 ??F) 08/28/2023 12:28 PM GREEN BUILDING MATERIALS DISTRIBUTOR Respiratory Rate 16 04/24/2023 7:46 AM CDT Oxygen Saturation 98% 03/23/2020 7:38 AM CDT Inhaled Oxygen Concentration - - Weight 55.8 kg (123 lb 0.3 oz) 04/24/2023 7:46 A M CDT Height 159 cm (5' 2.6) 08/29/2022 10:50 AM GREEN BUILDING MATERIALS DISTRIBUTOR Body Mass Index 22.07 08/29/2022 10:50 AM GREEN BUILDING MATERIALS DISTRIBUTOR Plan of Treatment Health Maintenance Due Date [...] TOMOSYNTHESIS Routine 11/27/2015 3:19 PM CDT PATHOLOGY EXTRACTION SUPERVISOR CYTOLOGY Routine 6 2:35 PM CDT [...] CDT Lavon Alvarez P.A.-C. LAB BLOOD ADD-ON [facility] [address] [place] [address], [facility] CNFL [facility] [place] [address] * Lipid Panel (11/29/2016 7:04 AM CDT) [...] for FH and FDB is available through [place] [facility]: FH/ADH Genetic Reflex Panel (test ADHP). Acquired (non-genetic) causes of markedly increased LDL cholesterol include cholestatic liver disease due to the presence of LpX. If a genetic form of hypercholesterolemia is suspected, family studies including biochemical testing for lipids (total cholesterol,triglycerides, LDL cholesterol and HDL cholesterol) are recommended. ??Please contact the laboratory at or the on-line test catalog at [employer] for information about how to order these tests or to speak with a genetic counselor. Further interpretation would require clinical information. Total Cholesterol/HDL Ratio 3 POWERCHART Blood 11/29/2016 7:04 AM CDT Nico Goyal P.A.-C.[facility] LAB BLOOD ADD-ON [facility] * BI Breast Screening Bilateral with Tomosynthesis [...] M.D. IMG BI PROCEDUR ES * Pathology EXTRACTION SUPERVISOR Cytology (11/27/2015 2:35 PM CDT) 11/27/2015 2:35 PM CDT Narrative [facility] - 12/04/2015 10:39 AM CDT Pat: VI TURCIOS ([id number]) Age/Sex: 40 ??F ??Loc: ? -00 ([facility] ) [facility] ??SHLOMO: 11/27/15 14:35 ??REC: 11/27/15 14:35 ??PHYS: , Cytology ?ThinPrep cervical specimen Patient Name: VI TURCIOS MR#: [id number] Submitting Physician: WESLY ??CHELO SALVADOR ??[id number] Specimen #[id number] Performing Lab: ??[place] [address] CLINICAL HISTORY: Last menstrual period: Status: Specimen [...] PCR, ThinPrep, testing performed by [facility] HPV High Risk type 16, [...] Wesly Henao M.D. LAB PAP COPATH ORDERABLES [facility] from Last 3 Months or Most Recently Relevant to Health Maintenance Care Teams Business Continuity Manager Relationship Specialty Start Date End Date Elsewhere, Pcp PCP - General Internal Medicine 11/07/22
--- OUTSIDE RECORDS SUMMARY | 2023-12-25 07:36 | XMS_ITS | Encounter Summary ---
Author Organization [place] Address [address] [place] [address] Care Team Providers Care House Cleaner Name Role Phone Placido Velazco MD Primary Care Provider [phone] Jean Abel MD Unavailable Unavailable Mk Dodge OD Unavailable [phone] Frw, None Primary Care Provider Unavailabl e Frw, None Unavailable Unavailable No Ref-Primary, Physician Primary Care Provider Encounter Details Date Type Department Care Team (Late st Contact Info) Description 02/29/2008 MyC Medical Advice [facility] in [place] STRAPPER [address] [place] [phone] Jean Abel MD Social History Tobacco Use [...] on filedocumented in this encounter Care Teams House Cleaner Relationship Specialty Start Date End Date Placido Velazco MD [facility] [address] [facility] [address] [place] [address] PCP - General 08/15/00 08/24/10 Jean Abel MD PCP - Obstetrics/Gynecology 08/15/00 08/24/10 Mk Dodge OD [facility] [place] [address] [facility] [address] [place] [address] PCP - Ophthalmology 04/21/08 Frw, None PCP - General Family Practice 08/25/10 03/23/17 Frw, None PCP - Obstetrics/Gynecology Family Practice 08/25/10 No Ref-Primary, Physician PCP - General 07/09/21 documented as of this encounter
--- OUTSIDE RECORDS SUMMARY | 2023-12-25 07:36 | XMS_ITS | Clinical Summary ---
Author Organization [facility] er Address [address] [place] [address] Care Team Providers Care Business Project Manager Name Role Phone Jeanine De La Torre PA-C Primary Care Provider [phone] Allergies Active Allergy Reactions Criticality Noted Date Comments Adhesive Tape Rash 01/08/2016 Pollen Extract Other (see comments) 10/19/2013 SEASONAL ALLERGIES Medications Medication Sig Dispensed Refills Start Date End Date Status albuterol HFA (PROVENTIL HFA;VENTOLIN HFA) 108 (90 Base) MCG/ACT inhaler Inhale 2 puffs if needed 02/27/2015 Active cetirizine (ZyrTEC) 10 MG tablet Take 10 mg by mouth 1 (one) time each day Active fluticasone (FLONASE) 50 MCG/ACT nasal sprayIndications:Acut [...] Sex Assigned at Female 08/10/2022 7:13 AM WILDLIFE BIOLOGY TECHNICIAN Gender Identity Female 08/10/2022 7:13 AM WILDLIFE BIOLOGY TECHNICIAN Sexual Orientation Not on file Last Filed Vital Signs Vital Sign Reading Time Taken Comments Blood Pressure 114/82 08/09/2022 2:07 PM WILDLIFE BIOLOGY TECHNICIAN Pulse 107 08/09/2022 2:07 PM WILDLIFE BIOLOGY TECHNICIAN Temperature 36.7 ??C (98 ??F) 08/09/2022 2:07 PM WILDLIFE BIOLOGY TECHNICIAN Respiratory Rate 16 08/09/2022 2:07 PM WILDLIFE BIOLOGY TECHNICIAN Oxygen Saturation 98% 08/09/2022 2:07 PM WILDLIFE BIOLOGY TECHNICIAN Inhaled Oxygen Concentration - - Weight 56.3 kg (124 lb 3.2 oz) 08/09/2022 2:07 P M WILDLIFE BIOLOGY TECHNICIAN Height 158 cm (5' 2.21) 08/09/2022 2:07 PM WILDLIFE BIOLOGY TECHNICIAN Body Mass Index 22.57 08/09/2022 2:07 PM WILDLIFE BIOLOGY TECHNICIAN Plan of Treatment Health Maintenance Due Date [...] Procedure Name Priority Date/Time Associated Diagnosis Comments MAMMO BREAST SCREENING TOMOSYNTHESIS BILATERAL Routine 11/27/2015 3:19 PM CDT from Last 3 Months or Most Recently Relevant to Health Maintenance Care Teams Business Project Manager Relationship Specialty Start Date End Date Jeanine De La Torre PA-C [address] [place] [address] PCP - General Family Medicine 04/04/23
--- OUTSIDE RECORDS SUMMARY | 2023-12-25 07:36 | XMS_ITS | Encounter Summary ---
Author Organization [place] Address [address] [place] [address] Care Team Providers Care Merchandise Coordinator Name Role Phone Placido Velazco MD Primary Care Provider [phone] Jean Abel MD Unavailable Unavailable Mk Dodge OD Unavailable [phone] Encounter Details Date Type Department Care Team (Late st Contact Info) Description 07/22/2010 10:46 AM [facility] in [facility] [address] [place] [address] [place] [address] Social History Tobacco Use Types Packs/Day Years [...] on filedocumented in this encounter Care Teams Merchandise Coordinator Relationship Specialty Start Date End Date Placido Velazco MD [facility] [address] [facility] [address] [place] [address] PCP - General 08/15/00 08/24/10 Jean Abel MD PCP - Obstetrics/Gynecology 08/15/00 Mk Dodge OD [facility] [place] [address] [facility] [address] [place] [address] PCP - Ophthalmology 04/21/08 documented as of this encounter
--- OUTSIDE RECORDS SUMMARY | 2023-12-25 07:36 | XMS_ITS | Encounter Summary ---
Author Organization [place] Address [address] [place] [address] Care Team Providers Care Line Maintenance Supervisor Name Role Phone Placido Velazco MD Primary Care Provider [phone] Jean Abel MD Unavailable Unavailable Mk Dodge OD Unavailable [phone] Frw, None Primary Care Provider Unavailabl e Frw, None Unavailable Unavailable No Ref-Primary, Physician Primary Care Provider Encounter Details Date Type Department Care Team (Late st Contact Info) Description 02/13/2009 MyC Medical Advice [facility] in [place] EQUIPMENT MAINTENANCE SUPERINTENDENT [address] [place] [phone] Jean Abel MD Social History Tobacco Use [...] on filedocumented in this encounter Care Teams Line Maintenance Supervisor Relationship Specialty Start Date End Date Placido Velazco MD [facility] [address] [place] [id number] PCP - General 08/15/00 08/24/10 Jean Abel MD PCP - Obstetrics/Gynecology 08/15/00 08/24/10 Mk Dodge OD [facility] [place] [address] [facility] [address] [place] [address] PCP - Ophthalmology 04/21/08 Frw, None PCP - General Family Practice 08/25/10 03/23/17 Frw, None PCP - Obstetrics/Gynecology Family Practice 08/25/10 No Ref-Primary, Physician PCP - General 07/09/21 documented as of this encounter
--- OUTSIDE RECORDS SUMMARY | 2023-12-25 07:36 | XMS_ITS | Encounter Summary ---
Author Organization [place] Address [address] [place] [address] Care Team Providers Care Aviation Project Engineer Name Role Phone Placido Velazco MD Primary Care Provider [phone] Jean Abel MD Unavailable Unavailable Mk Dodge OD Unavailable [phone] Frw, None Primary Care Provider Unavailabl e Frw, None Unavailable Unavailable No Ref-Primary, Physician Primary Care Provider Encounter Details Date Type Department Care Team (Late st Contact Info) Description 02/25/2008 MyC Medical Advice [facility] in [place] PRODUCTION ASSOCIATE [address] [phone] Jean Abel MD Social History Tobacco Use [...] on filedocumented in this encounter Care Teams Aviation Project Engineer Relationship Specialty Start Date End Date Placido Velazco MD [facility] [address] [facility] [address] [place] [address] PCP - General 08/15/00 08/24/10 Jean Abel MD PCP - Obstetrics/Gynecology 08/15/00 08/24/10 Mk Dodge OD [facility] [place] [address] [facility] [address] [place] [address] PCP - Ophthalmology 04/21/08 Frw, None PCP - General Family Practice 08/25/10 03/23/17 Frw, None PCP - Obstetrics/Gynecology Family Practice 08/25/10 No Ref-Primary, Physician PCP - General 07/09/21 documented as of this encounter
--- OUTSIDE RECORDS SUMMARY | 2023-12-25 07:36 | XMS_ITS | Encounter Summary ---
Author Organization [place] Address [address] [place] [address]. [place] [address] Care Team Providers Care Ocean Clam Boat Captain Name Role Phone Mk Dodge OD Unavailable [phone] Frw, None Primary Care Provider Unavailabl e Frw, None Unavailable Unavailable Encounter Details Date Type Department Care Team (Late st Contact Info) Description 01/06/2011 11:00 AM T [facility] in [facility] [address] [place] [phone] Wen Jo MD [address] [place] [address] Social History Tobacco Use Types [...] on filedocumented in this encounter Care Teams Ocean Clam Boat Captain Relationship Specialty Start Date End Date Mk Dodge OD [facility] [address] [place] [address] [address] [place], [place] [id number] PCP - Ophthalmology 04/21/08 Frw, None PCP - General Family Practice 08/25/10 03/23/17 Frw, None PCP - Obstetrics/Gynecology Family Practice 08/25/10 documented as of this encounter
--- OUTSIDE RECORDS SUMMARY | 2023-12-25 07:36 | XMS_ITS | Referral Summary ---
Author Organization [facility] Address [address] [place] [address] Care Team Providers Care Bottling Attendant Name Role Phone Elsewhere, Pcp Primary Care Provider Unavailabl e Source Comments Patient records contain information from all sites at [facility]. For routine questions regarding patient records, call [phone] during business hours, M-F 8:00 AM - 5:00 PM Central Time. Record requests for emergency care only can be directed to [phone] at any time.[facility] Allergies Active Allergy Reactions Criticality Noted Date [...] How often do you attend chur or buddhism services? Patient declined 10/13/2022 Do you belong to any clubs o r organizations such as restorationist groups, unions, fraternal or athletic groups, or [...] Answer Date Recorded PHQ-2 Score 0 03/23/2020 [facility] Occupat ional Health - Occupational Stress [...] place to sleep or slept in a assisted (including now)? No 10/13/2022 Nutrition Answer Date [...] Sex Assigned at Female 06/29/2017 5:49 AM TRANSPORTATION CLERK Gender Identity Female 06/29/2017 5:49 AM TRANSPORTATION CLERK Sexual Orientation Straight 06/29/2017 5: 49 AM TRANSPORTATION CLERK Last Filed Vital Signs Vital Sign Reading Time Taken Comments Blood Pressure 114/59 04/24/2023 7:46 AM CDT Pulse 70 04/24/2023 7:46 AM CDT Temperature 36.7 ??C (98 ??F) 08/28/2023 12:28 PM TRANSPORTATION CLERK Respiratory Rate 16 04/24/2023 7:46 AM CDT Oxygen Saturation 98% 03/23/2020 7:38 AM CDT Inhaled Oxygen Concentration - - Weight 55.8 kg (123 lb 0.3 oz) 04/24/2023 7:46 A M CDT Height 159 cm (5' 2.6) 08/29/2022 10:50 AM TRANSPORTATION CLERK Body Mass Index 22.07 08/29/2022 10:50 AM TRANSPORTATION CLERK Plan of Treatment Not on file Procedures Procedure Name Priority Date/Time Associated Diagnosis Comments COMPREHENSIVE METABOLIC PANEL, S/P STAT 03/22/2020 10:08 AM CDT LIPID PANEL, S Routine 11/29/2016 7:04 AM CDT BI BREAST SCREENING BILATERAL WITH TOMOSYNTHESIS Routine 11/27/2015 3:19 PM CDT PATHOLOGY WEIGHER OPERATOR CYTOLOGY Routine 6 2:35 PM CDT from [...] CDT Lavon Alvarez P.A.-C. LAB BLOOD ADD-ON [facility] [address] [place] [address], [facility] CNFL [facility] in [address] [address] * Lipid Panel (11/29/2016 7:04 AM CDT) [...] for FH and FDB is available through [employer]: FH/ADH Genetic Reflex Panel (test ADHP). Acquired (non-genetic) causes of markedly increased LDL cholesterol include cholestatic liver disease due to the presence of LpX. If a genetic form of hypercholesterolemia is suspected, family studies including biochemical testing for lipids (total cholesterol,triglycerides, LDL cholesterol and HDL cholesterol) are recommended. ??Please contact the laboratory at or the on-line test catalog at [employer] for information about how to order these tests or to speak with a genetic counselor. Further interpretation would require clinical information. Total Cholesterol/HDL Ratio 3 POWERCHART Blood 11/29/2016 7:04 AM CDT Ada Goyal P.A.-C..[facility] LAB BLOOD ADD-ON POWERCHART * BI Breast [...] M.D. IMG BI PROCEDUR ES * Pathology WEIGHER OPERATOR Cytology (11/27/2015 2:35 PM CDT) 11/27/2015 2:35 PM CDT Narrative [facility] - 12/04/2015 10:39 AM CDT Pat: KINJAL TURCIOS ([id number]) Age/Sex: 40 ??F ??Loc: ? -00 (RWN ) CoPath ??SHLOMO: 11/27/15 14:35 ??REC: 11/27/15 14:35 ??PHYS: , Cytology ?ThinPrep cervical specimen Patient Name: KINJAL TURCIOS MR#: [id number] Submitting Physician: WESLY ??CHELO SALVADOR ??[id number] Specimen #[id number] Performing Lab: ??[place] [address] CLINICAL HISTORY: Last menstrual period: Status: Specimen [...] with Genotyping, PCR, ThinPrep, testing performed by [facility] HPV High Risk type 16, PCR [...] Wesly Henao M.D. LAB PAP COPATH ORDERABLES [facility] from Last 3 Months or Most Recently Relevant to Health Maintenance Care Teams Bottling Attendant Relationship Specialty Start Date End Date Elsewhere, Pcp PCP - General Internal Medicine 11/07/22
--- OUTSIDE RECORDS SUMMARY | 2023-12-25 07:36 | XMS_ITS | Continuity of Care Document ---
Author Name [facility] Organization [facility] Care Team Providers Care Universal Winding Machine Operator Name Role Phone [facility] Unavailable Unavailable Social History Combined list of available smoking, tobacco, and other social history from Department of Defense and Veterans Affairs facilities. Social History Type Response Date Comment Sourc e This section is an empty social history section. [facility]
--- OUTSIDE RECORDS SUMMARY | 2023-12-25 07:36 | XMS_ITS | Encounter Summary ---
Author Organization [facility] Address [address] [place] [address] Care Team Providers Care Junior Programmer Analyst Name Role Phone Mk Dodge OD Unavailable [phone] Frw, None Primary Care Provider Unavailabl e Frw, None Unavailable Unavailable Encounter Details Date Type Department Care Team (Late st Contact Info) Description 01/14/2011 4:24 PM CDT [facility] in [facility] [address] [place] [phone] Pam [place] [address] Social History Tobacco Use Types Packs/Day Years [...] on filedocumented in this encounter Care Teams Junior Programmer Analyst Relationship Specialty Start Date End Date Mk Dodge, DUC [facility] [address] [place] [address] [address] [place] [address] PCP - Ophthalmology 04/21/08 Frw, None PCP - General Family Practice 08/25/10 03/23/17 Frw, None PCP - Obstetrics/Gynecology Family Practice 08/25/10 documented as of this encounter
--- OUTSIDE RECORDS SUMMARY | 2023-12-25 07:36 | XMS_ITS ---
Author Organization [facility] Address [address] [place] [address] Care Team Providers Care Key Account Coordinator Name Role Phone Unavailable Unavailable Unavailable Surgery Details Not on file Complications Check Surgery Details section. Procedure Estimated Blood Loss Check Surgery Details section. Procedure Findings Check Surgery Details section. Procedure Specimens Taken Check Surgery Details section.
--- OUTSIDE RECORDS SUMMARY | 2023-12-25 07:36 | XMS_ITS | Encounter Summary ---
Author Organization [facility] Address [address] [place] [address] Care Team Providers Care Csm Consultant Name Role Phone Placido Velazco MD Primary Care Provider [phone] Jean Abel MD Unavailable Unavailable Mk Dodge OD Unavailable [phone] Frw, None Primary Care Provider Unavailabl e Frw, None Unavailable Unavailable No Ref-Primary, Physician Primary Care Provider Encounter Details Date Type Department Care Team (Late st Contact Info) Description 04/05/2010 MyC Medical Advice [facility] in [place] REGIONAL AGRONOMIST [address] [place] [phone] Jean Abel MD Social History Tobacco Use [...] on filedocumented in this encounter Care Teams Csm Consultant Relationship Specialty Start Date End Date Placido Velazco MD [facility] [address] [facility] [address] [place] [phone] PCP - General 08/15/00 08/24/10 Jean Abel MD PCP - Obstetrics/Gynecology 08/15/00 08/24/10 Mk Dodge OD [facility] [place] [address] [facility] [address] [place] [address] PCP - Ophthalmology 04/21/08 Frw, None PCP - General Family Practice 08/25/10 03/23/17 Frw, None PCP - Obstetrics/Gynecology Family Practice 08/25/10 No Ref-Primary, Physician PCP - General 07/09/21 documented as of this encounter
--- OUTSIDE RECORDS SUMMARY | 2023-12-25 07:36 | XMS_ITS | Encounter Summary ---
Author Organization [facility] Address [facility]ly [facility] [place] [address] Care Team Providers Care Bunk Assembler Name Role Phone Mk Dodge OD Unavailable Frw, None Primary Care Provider Unavailabl e Frw, None Unavailable Unavailable Encounter Details Date Type Department Care Team (Late st Contact Info) Description 01/15/2011 6:50 PM CDT [facility] in [facility] [address] [place] [phone] [facility] [address] [place] [address] Social History Tobacco Use Types Packs/Day Years [...] on filedocumented in this encounter Care Teams Bunk Assembler Relationship Specialty Start Date End Date Mk Dodge, OD [facility] [address] [facility] [address] [place] [address] PCP - Ophthalmology 04/21/08 Frw, None PCP - General Family Practice 08/25/10 03/23/17 Frw, None PCP - Obstetrics/Gynecology Family Practice 08/25/10 documented as of this encounter
--- OUTSIDE RECORDS SUMMARY | 2023-12-25 07:36 | XMS_ITS | Encounter Summary ---
Author Organization [facility] Address [address] [place] [address]. [place] [address] Care Team Providers Care Music Journalist Name Role Phone Mk Dodge OD Unavailable [phone] Frw, None Primary Care Provider Unavailabl e Frw, None Unavailable Unavailable No Ref-Primary, Physician Primary Care Provider Reason for Visit * Reason Onset Date Comments Refill Request 01/19/2011 ambien Encounter Details Date Type Department Care Team (Late st Contact Info) Description 01/19/2011 Refill [facility] in [place] OSCILLOGRAPH TECHNICIAN [address] [place] [phone] Wen Jo MD [address] [place] [address] Refill Request (ambien) Social History Tobacco Use [...] on filedocumented in this encounter Care Teams Music Journalist Relationship Specialty Start Date End Date Mk Dodge OD [facility] [address] [facility] [address] [place] [address] PCP - Ophthalmology 04/21/08 Frw, None PCP - General Family Practice 08/25/10 03/23/17 Frw, None PCP - Obstetrics/Gynecology Family Practice 08/25/10 No Ref-Primary, Physician PCP - General 07/09/21 documented as of this encounter
--- OUTSIDE RECORDS SUMMARY | 2023-12-25 07:36 | XMS_ITS | Encounter Summary ---
Author Organization [facility] Address [address] [place] [address] Care Team Providers Care Senior Erp Consultant Name Role Phone Placido Velazco MD Primary Care Provider [phone] Jean Abel MD Unavailable Unavailable Mk Dodge OD Unavailable [phone] Frw, None Primary Care Provider Unavailabl e Frw, None Unavailable Unavailable No Ref-Primary, Physician Primary Care Provider Encounter Details Date Type Department Care Team (Late st Contact Info) Description 04/08/[address] [facility] in [place] STRADDLE BUGGY OPERATOR [address] [place] [phone] Jean Abel MD Social History Tobacco Use [...] on filedocumented in this encounter Care Teams Senior Erp Consultant Relationship Specialty Start Date End Date Placido Velazco MD [facility] [address] [facility] [address] [place] [id number] PCP - General 08/15/00 08/24/10 Jean Abel MD PCP - Obstetrics/Gynecology 08/15/00 08/24/[address] [facility] [place] 701 [facility] [address] [place] [address] PCP - Ophthalmology 04/21/08 Frw, None PCP - General Family Practice 08/25/10 03/23/17 Frw, None PCP - Obstetrics/Gynecology Family Practice 08/25/10 No Ref-Primary, Physician PCP - General 07/09/21 documented as of this encounter
--- OUTSIDE RECORDS SUMMARY | 2023-12-25 07:36 | XMS_ITS | Data Portability ---
Author Organization [facility] NEWS ASSISTANT, [id number] Address [address] [place] [phone] Assessment Encounter Date Assessment Date Assessment LastModified by Organization Details LastModified Time 03/26/2020 03/26/2020 >50% of the visit was spent in consultation or coordination of care. Total time spent was ___30 minutes. Not available 03/27/2020 01:54:00 Plan of Treatment Reminders Order Date Submit Date Provider Last Modified By Organization Details Last Modified Time Details Appointments None recorded. Lab pap, LB 2019 020 [facility], [address] [place], [address], 0 09:24:08 unlisted lab - HPV high risk DNA with 16/18 genotyping 2019 020 [facility], [address] [place], [address], 0 09:24:08 Referral None recorded. Procedures None recorded. Surgeries None recorded. Imaging US, transvagin al 2019 020 [email or web address] [id number] [facility], [address] [facility], [address], [place], [address], 0 12:48:49 US, pelvis 2019 020 [id number] [facility], [address] [facility], [address], [place], [address], 0 01:31:52 Medication Orders cyclobenza shannon 5 mg tablet 2019 020 INTERFACE [id number], [address], [place], [place], [id number], 0 12:59:05 Patient TargetsNo targets recorded. Patient Instructions Encounter Date Encounter Id Patient Instructions Last Modified By Organization Details Last Modified Time 04/24/2020 [id number] Call if you usha re a referraly for physical therapy. Consider seeing Radha Love at [facility] or Wander Hardy at [facility]. Not available 04/30/2020 16:41:57 I spent 25 [...] be better candidate for bulking injections vs modoc tissue support for incontinence which I discussed is not done in our practice. Also discussed definitive treatment for bleeding and pain would be consideration for hysterectomy. Follow-up as needed. Not available 04/30/2020 16:42:20 03/26/2020 [id number] handling fee* [email or web address] Not available 0 03/26/2020 [...] uterus looks normal, no free fluid- if yard assistant etiology to pain would likely be cyst [...] high- risk HPV high risk type 16 Negati ve for HPV type 16. negati ve for HPV type 16. Not Available [facility] [address] [place], [address], 04/02/2020 09:24:08 03/26/2003/26/2020 HPV DNA, high- risk HPV high risk type 18 Negati ve for HPV type 18. negati ve for HPV type 18. Not Available [facility] [address] [place], [address], 04/02/2020 09:24:08 03/26/2003/26/2020 HPV DNA, high- risk HPV other high risk types Negati ve for other high risk HPV types. negati ve for other high risk HPV types. Not Available [facility] [address] [place], [address], 04/02/2020 09:24:08 03/26/2003/26/2020 pap, LB case report See note Not Available [facility] [address] [place], [address], 04/02/2020 09:24:08 04/14/20 20 US, trans vagin al No observ ation record ed. [email or web address] [address], [place], [address], 04/14/2020 13:26:52 Result Notes None recorded. Problems No Known Problems Procedures Surgical History Date Name Laterality Status Provider Name and Address Organization Details Recorded Time 7 Date of Last Mammogram completed Meliza lagunas [facility] NEWS ASSISTANT 03/26/2020 11:50:26 7 Date of Last Pap Smear completed Meliza Trae lagunas [facility] NEWS ASSISTANT 03/26/2020 11:50:56 cerclage of uterine cervix completed Meliza lagunas [facility] NEWS ASSISTANT 03/26/2020 11:57:22 wrist excision completed Meliza lagunas [facility] NEWS ASSISTANT 03/26/2020 11:57:49 Imaging Results Imaging Date Name Status LastModified by Organization Details LastModified Time 04/14/2020 US, transvaginal completed [email or web address], [place], [address], 04/14/2020 13:26:52 Procedure Notes None recorded. Medical Equipment None Reported. Allergies Allergen ID Allergen Name Allergen Category Reaction Reaction Severity Criticality Documentation Date Start Date Code Code System Note Provider Name and Address Organization Details Recorded Time 145720 adhesive environme nt,medica tion rash severe Not available 03/26/2020 Meliza lagunas [facility] NEWS ASSISTANT 0 11:48:20 Medications Name Sig Start Date [...] Address Organization Details Last Updated DateTime 0 [address]9526.6 8 g 22.1 kg/m2 157.48 cm 65 /min 120 mm[Hg] 75 mm[Hg] Meliza Larkin [facility] NEWS ASSISTANT 0 11:47:54 Social History Question Answer Notes LastModified by Organizat ion Details LastModified Time Tobacco Smoking Status Former Smoker Meliza Trae [place], [place] [facility] NEWS ASSISTANT 03/26/2020 11:55:49 What Is Your Level Of [...] Encounter Closed Date Diagnosis/Indication Diagnosis SNOMED-CT Code [id number] WESLY ALLEN MD [id number] [address] [place] [address] 03/26/2020 11:30:48 03/26/2020 13:35:48 Screening for malignant neoplasm of cervix 503233199 Pain in pelvis 24946286 Abdominal pain 18113684 Female str ess incontinence 29665877 [id number] WESLY ALLEN MD [id number] [address] [place] [address] 03/26/2020 12:22:57 03/26/2020 12:48:49 Abdominal pain 37905310 [id number] WESLY ALLEN MD [id number] [address] [place] [address] 04/27/2020 12:59:15 05/04/2020 09:49:13 Perimenopausal state 77660027711372 4 Female str ess incontinence 88642103 Health Concerns Section Related Observation LastModified by Organization Detai ls LastModified Time None Recorded Concern Status LastModified by Organization Details LastModified Time None Recorded Advance Directives Directive None Recorded Payers Encounter Date Sequence Insurance Name Policy Number Policy Christina Covered Member ID Christina Member ID Guarantor Name 04/24/2020 1 [facility] Kinjal Rodrigues [id number] Kinjal Rodrigues 03/26/2020 1 [facility] Kinjal Rodrigues [id number] Kinjal Rodrigues 03/26/2020 1 [facility] Kinjal Rodrigues [id number] Kinjal Rodrigues Notes Date Note Type Note Provider Name [...] Walks for exercise 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 employee here, over[place] [address], [place], [address], [facility] - Effective Measure NEWS ASSISTANT 03/27/2020 01:56:09 04/24/2020 text/html HPI Notes: siri gay presents for follow-up limited intake as power outtage in clinic patient seen in room with window/natural light physical exam deferred referred here by her neigbor who used to work here patient lives almost [place] away- closer to [place] was seen in March after having a couple of weeks of a fairly acute onset of pelvic pain, work up essentially normal CT and usn- suspect possible ovarian cyst vs non-yard assistant. Patient endorses history of needing a cerclage [...] [place] [address], [place], [address], [facility] [employer] NEWS ASSISTANT 04/30/2020 16:42:33 OBGyn Episode Ob Episode Information Episode Created Date Number of Fetuses Patient Bloodtype Patient rh Status Prepregnancy Weight lbs Domestic Partner Domestic Partner Phone Father Name Line Service Supervisor Status 03/26/20 20 1 CLOSED Fetus Data [...] Domestic Partner Domestic Partner Phone Father Name Line Service Supervisor Status 03/26/20 20 1 CLOSED Fetus Data [...] Domestic Partner Domestic Partner Phone Father Name Line Service Supervisor Status 03/26/20 20 1 CLOSED Fetus Data [...] Complications Tubal Sterilization Discharge Date Comments 1 [facility]- idural [facility] Discharge Information Feeding Method Contraceptive Method Maternal HG B and HCT Levels
--- NOTE | 2023-12-25 08:33 | W.ANESCHARGE ---
Anesthesia Charges Start Date/Time Anesthesia Start Date: 12/25/23 Anesthesia Start Time: 08:02 Stop Date/Time Anesthesia Stop Date: 12/25/23 Anesthesia Stop Time: 08:32
--- NOTE | 2023-12-25 09:11 | W.ANESCHARGE ---
Anesthesia Charges Start Date/Time Anesthesia Start Date: 12/25/23 Anesthesia Start Time: 08:02 Stop Date/Time Anesthesia Stop Date: 12/25/23 Anesthesia Stop Time: 08:32
== END 2023-12-25 07:33 | disposition home or self-care (01) ==
LOC: OP CLINIC 07:33
PROVIDERS: PCP Obstetrics & Gynecology; Visit Provider Surgery
DX: Z12.11 Encounter for screening for malignant neoplasm of colon (principal)
CPT/HCPCS: 00811; 00812; 45378; J2704

== ENCOUNTER 2024-01-09 13:39 | Outpatient (CLI) | payer BC, SELFPAY ==
--- OUTSIDE RECORDS SUMMARY | 2024-01-09 13:41 | XMS_ITS | Encounter Summary ---
Author Organization [facility] Address [address] [place] [address]. [place] [address] Care Team Providers Care Bottom Presser Name Role Phone Mk Dodge OD Unavailable [phone] Frw, None Primary Care Provider Unavailabl e Frw, None Unavailable Unavailable Encounter Details Date Type Department Care Team (Late st Contact Info) Description 02/23/2011 10:35 AM CDT [facility] in [facility] [address] [place] [phone] Wen Jo MD [address] [place] [address] Social History Tobacco Use Types [...] on filedocumented in this encounter Care Teams Bottom Presser Relationship Specialty Start Date End Date Mk Dodge OD [facility] [address] [place] [address] [address] [place], [place] [phone] PCP - Ophthalmology 04/21/08 Frw, None PCP - General Family Practice 08/25/10 03/23/17 Frw, None PCP - Obstetrics/Gynecology Family Practice 08/25/10 documented as of this encounter
--- OUTSIDE RECORDS SUMMARY | 2024-01-09 13:41 | XMS_ITS | Encounter Summary ---
Author Organization [facility] Address [address] [place] [address] Care Team Providers Care Performance Makeup Artist Name Role Phone Placido Velazco MD Primary Care Provider [phone] Jean Abel MD Unavailable Unavailable Mk Dodge OD Unavailable [phone] Encounter Details Date Type Department Care Team (Late st Contact Info) Description 07/22/2010 10:46 AM [facility] in [facility] [address] [place] [address] Pam [place] [address] Social History Tobacco Use Types Packs/Day Years [...] on filedocumented in this encounter Care Teams Performance Makeup Artist Relationship Specialty Start Date End Date Placido Velazco MD [facility] [address] [facility] [address] [place] [address] PCP - General 08/15/00 08/24/10 Jean Abel MD PCP - Obstetrics/Gynecology 08/15/00 Mk Dodge OD [facility] [address] [facility] [address] [place] [address] PCP - Ophthalmology 04/21/08 documented as of this encounter
--- OUTSIDE RECORDS SUMMARY | 2024-01-09 13:41 | XMS_ITS | Encounter Summary ---
Author Organization [facility] Address [address] [place] [address]. [place] [address] Care Team Providers Care Sewing Techniques Demonstrator Name Role Phone Mk Dodge OD Unavailable Frw, None Primary Care Provider Unavailabl e Frw, None Unavailable Unavailable Encounter Details Date Type Department Care Team (Late st Contact Info) Description 10/07/2011 10:26 AM [facility] in [facility] [address] [place] [phone] Lina Rodriguez [facility] [address] [place] [address] Social History Tobacco Use Types Packs/Day Years [...] on filedocumented in this encounter Care Teams Sewing Techniques Demonstrator Relationship Specialty Start Date End Date Mk Dodge, OD [facility] [address] [place] [address] [address] [place] [address] PCP - Ophthalmology 9/29/08 Frw, None PCP - General Family Practice 08/25/10 03/23/17 Frw, None PCP - Obstetrics/Gynecology Family Practice 08/25/10 documented as of this encounter
--- OUTSIDE RECORDS SUMMARY | 2024-01-09 13:41 | XMS_ITS | Clinical Summary ---
Author Organization [place] Address [facility]ly [facility]0 [facility] [place] [address] Care Team Providers Care Battery Starter Name Role Phone Mk Dodge OD Unavailable [phone] Frw, None Unavailable Unavailable No Ref-Primary, Physician Primary Care Provider Allergies Active Allergy Reactions Criticality Noted Date Comments No Known Drug Allergy 02/19/2008 Seasonal Allergies 11/01/2004 Medications Medication Sig Dispensed Refills Start Date End Date Status fluticasone (FLONASE) 50 MCG/ACT nasal sprayIndications:Ac nahid maxillary sinusitis [place] 1-2 sprays into both nostrils daily. 1 [...] Comments Blood Pressure 122/61 07/12/2013 6:36 PM HAIR SPINNING MACHINE OPERATOR Pulse 81 07/12/2013 6:36 PM HAIR SPINNING MACHINE OPERATOR Temperature 37 ??C (98.6 ??F) 07/12/2013 6:36 PM HAIR SPINNING MACHINE OPERATOR Respiratory Rate 16 10/26/2005 11:15 AM CDT Oxygen Saturation 96% 07/12/2013 6:36 PM HAIR SPINNING MACHINE OPERATOR Inhaled Oxygen Concentration - - Weight 48.1 kg (106 lb) 06/15/2012 1:25 PM HAIR SPINNING MACHINE OPERATOR Height 158.8 cm (5' 2.5) 10/03/2011 10:17 [...] 2 ANTIBODY (QUEST) Routine 08/25/2010 9:28 AM HAIR SPINNING MACHINE OPERATOR Supervision of other normal HCL LIPID PANEL, REFLEX TO DIRECT LDL Routine 04/05/2010 10:29 AM CDT Lipid Screening HCL PAP THIN LAYER SCREEN Routine 04/05/2010 12:00 AM CDT Screening for Malignant Neoplasm of the Cervix from Last 3 Months or Most Recently Relevant to Health Maintenance Results * (ABNORMAL) Basic metabolic panel (10/03/2011 10:54 AM CDT) Sodium 139 133 - 144 mmol/L [facility] Potassium 3.6 3.4 - 5.3 mmol/L [facility] Chloride 101 94 - 109 mmol/L [facility] Carbon Dioxide 26 20 - 32 mmol/L [facility] Anion Gap 12 6 - 17 mmol/L [facility] Glucose 137(H) 60 - 99 mg/dL [facility] Urea Nitrogen 11 5 - 24 mg/dL [facility] Creatinine 0.82 0.52 - 1.04 mg/dL [facility] GFR Estimate 78 >60 mL/min/1.7 m2 [facility] GFR Estimate If Black >90 >60 mL/min/1.7 m2 [facility] Calcium 8.4(L) 8.5 - 10.4 mg/dL [facility] Blood specimen (specimen) 10/03/2011 10:54 AM CDT 10/03/2011 10:59 AM CDT Lina Rodriguez PA-C LAB - BLOOD OR DERABLES [facility] [place] [address] * HIV 1 and 2 Antibody (08/25/2010 9:28 AM HAIR SPINNING MACHINE OPERATOR) HIV 1&2 Antibody Negative NEG [facility] Blood specimen (specimen) 08/25/2010 9:28 AM HAIR SPINNING MACHINE OPERATOR 08/25/2010 9:29 AM HAIR SPINNING MACHINE OPERATOR Ailyn Leyva NP LAB - BLOOD ORDERABL ES [facility] * LIPID PANEL, REFLEX TO DIRECT LDL (04/05/2010 10:29 AM CDT) Cholesterol 176 0 - 200 mg/dL [facility] Comment: LDL Cholesterol is the primary guide to therapy. The NCEP recommends further evaluation of: patients with cholesterol <200 mg/dL if additional risk factors are present, cholesterol >240 mg/dL, triglycerides >150 mg/dL, or HDL <40 mg/dL. Triglycerides 53 0 - 150 mg/dL [facility] Comment:Fasting specimen HDL Cholesterol 57 50 - 110 mg/dL [facility] LDL Cholesterol Calculated 108 0 - 129 mg/dL [facility] Comment: LDL Cholesterol is the primary guide to therapy: LDL-cholesterol goal in high risk patients is <100 mg/dL and in very high risk patients is <70 mg/dL. VLDL-Cholesterol 11 0 - 30 mg/dL [facility] Cholesterol/HDL Ratio 3.1 0.0 - 5.0 [facility] 04/05/2010 10:2 9 AM CDT 04/05/2010 10:30 AM CDT Jean Springer MD LABORATORY [facility] [place] [address] * A THIN LAYER PAP SCREEN [G0123.000] (04/05/2010 12:00 AM CDT) PAP PETEY Begum Report Patient Name: KINJAL TURCIOS MR#: [id number] Specimen #: [id number] Collected: 04/05/2010 Received: 04/06/2010 Reported: 04/07/2010 15:06 Ordering Phy(s): JEAN SPRINGER SPECIMEN/STAIN PROCESS: Pap thin layer prep screening (Surepath) ? Pap-Cyto x 1, Reflex HPV x 1 SOURCE: Cervical, endocervical Pap thin layer prep screening (Surepath) SPECIMEN ADEQUACY: Satisfactory for evaluation. -Transformation zone component present. CYTOLOGIC INTERPRETATION: Negative for Intraepithelial Lesion or Malignancy Electronically signed out by: ABHIJIT Bolden(ASCP) Processed and screened at [facility], [facility] CLINICAL HISTORY: LMP: NO LMP RECORDED Previous normal pap: NIL, 02/10/09 Previous normal pap: NIL, 04/17/06 Previous normal pap: NIL, 12/07/04, Papanicolaou Test Limitations: ??Cervical cytology is a screening test with limited sensitivity; regular screening is critical for cancer prevention; Pap tests are primarily effective for the diagnosis/preventi on of squamous cell carcinoma, not adenocarcinomas or other cancers. TESTING LAB LOCATION: [address] [place] [address] COLLECTION SITE: Client: ??[facility] Location: FRWOB (W) COPATH 04/05/2010 04/06/2010 10: 30 AM CDT Jean Springer MD LABORATORY [place] from Last 3 Months or Most Recently Relevant to Health Maintenance Care Teams Battery Starter Relationship Specialty Start Date End Date Mk Dodge OD [address] [address] PCP - Ophthalmology 04/21/08 Frw, None PCP - Obstetrics/Gynecology Family Practice 08/25/10 No Ref-Primary, Physician PCP - General 07/09/21
--- OUTSIDE RECORDS SUMMARY | 2024-01-09 13:41 | XMS_ITS | Encounter Summary ---
Author Organization [place] Address [address] [place] [address]. [place] [address] Care Team Providers Care Compilation Clerk Name Role Phone Mk Dodge OD Unavailable [phone] Frw, None Primary Care Provider Unavailabl e Frw, None Unavailable Unavailable Encounter Details Date Type Department Care Team (Late st Contact Info) Description 02/10/2011 1:00 PM CDT [facility] in [facility] [address] [place] [phone] Wen Jo MD [address] [place] [address] Social History Tobacco Use Types [...] on filedocumented in this encounter Care Teams Compilation Clerk Relationship Specialty Start Date End Date Mk Dodge, DUC [facility] [address] [place] [address] [address] [place], [place] [phone] PCP - Ophthalmology 04/21/08 Frw, None PCP - General Family Practice 08/25/10 03/23/17 Frw, None PCP - Obstetrics/Gynecology Family Practice 08/25/10 documented as of this encounter
--- OUTSIDE RECORDS SUMMARY | 2024-01-09 13:41 | XMS_ITS | Encounter Summary ---
Author Organization [place] Address [facility] [place] [address] Care Team Providers Care Hospitality Services Manager Name Role Phone Mk Dodge OD Unavailable Frw, None Primary Care Provider Unavailabl e Frw, None Unavailable Unavailable Encounter Details Date Type Department Care Team (Late st Contact Info) Description 01/15/2011 6:50 PM CDT Hospital [facility] in [facility] [address] [place] [phone] Claudia Meyers MD [facility] [address] [place] [address] Social History Tobacco Use Types Packs/Day Years [...] on filedocumented in this encounter Care Teams Hospitality Services Manager Relationship Specialty Start Date End Date Mk Dodge, OD [facility] 701 [facility] [address] [place] [address] PCP - Ophthalmology 04/21/08 Frw, None PCP - General Family Practice 08/25/10 03/23/17 Frw, None PCP - Obstetrics/Gynecology Family Practice 08/25/10 documented as of this encounter
--- OUTSIDE RECORDS SUMMARY | 2024-01-09 13:41 | XMS_ITS | Encounter Summary ---
Author Organization [place] Address [address] [place] [address] Care Team Providers Care Glass Laminating Operator Name Role Phone Mk Dodge OD Unavailable Frw, None Primary Care Provider Unavailabl e Frw, None Unavailable Unavailable No Ref-Primary, Physician Primary Care Provider Encounter Details Date Type Department Care Team (Late st Contact Info) Description 02/23/2011 [facility] in [place] Inpatient [facility] [address] [place] [address] Frw, Inpatient Provider Delivery Record Social [...] on filedocumented in this encounter Care Teams Glass Laminating Operator Relationship Specialty Start Date End Date Mk Dodge, DUC [facility] [address] [place] [phone] PCP - Ophthalmology 04/21/08 Frw, None PCP - General Family Practice 08/25/10 03/23/17 Frw, None PCP - Obstetrics/Gynecology Family Practice 08/25/10 No Ref-Primary, Physician PCP - General 07/09/21 documented as of this encounter
--- OUTSIDE RECORDS SUMMARY | 2024-01-09 13:41 | XMS_ITS | Encounter Summary ---
Author Organization [place] Address [address] [place] [address]. [place] [address] Care Team Providers Care Museum Assistant Name Role Phone Mk Dodge OD Unavailable [phone] Frw, None Primary Care Provider Unavailabl e Frw, None Unavailable Unavailable No Ref-Primary, Physician Primary Care Provider Encounter Details Date Type Department Care Team (Late st Contact Info) Description 08/27/2010 MyC Medical Advice [facility] [place] FAIRGROUND OPERATOR [address] [place] [address] Ailyn Leyva, RELIGIOUS STUDIES PROFESSOR [facility] [address] [place] [address] Social History Tobacco Use Types [...] on filedocumented in this encounter Care Teams Museum Assistant Relationship Specialty Start Date End Date Mk Dodge, OD [facility] [address] [place] [address] PCP - Ophthalmology 04/21/08 Frw, None PCP - General Family Practice 08/25/10 03/23/17 Frw, None PCP - Obstetrics/Gynecology Family Practice 08/25/10 No Ref-Primary, Physician PCP - General 07/09/21 documented as of this encounter
--- OUTSIDE RECORDS SUMMARY | 2024-01-09 13:41 | XMS_ITS | Referral Summary ---
Author Organization [place] Address [facility] [place] [address] Care Team Providers Care Cured Meats Supervisor Name Role Phone Mk Dodge OD Unavailable [phone] Frw, None Unavailable Unavailable No Ref-Primary, Physician Primary Care Provider Allergies Active Allergy Reactions Criticality Noted Date Comments No Known Drug Allergy 02/19/2008 Seasonal Allergies 11/01/2004 Medications Medication Sig Dispensed Refills Start Date End Date Status fluticasone (FLONASE) 50 MCG/ACT nasal sprayIndications:Ac nahid maxillary sinusitis [place] 1-2 sprays into both nostrils daily. 1 [...] Comments Blood Pressure 122/61 07/12/2013 6:36 PM LATEX CASTER Pulse 81 07/12/2013 6:36 PM LATEX CASTER Temperature 37 ??C (98.6 ??F) 07/12/2013 6:36 PM LATEX CASTER Respiratory Rate 16 10/26/2005 11:15 AM CDT Oxygen Saturation 96% 07/12/2013 6:36 PM LATEX CASTER Inhaled Oxygen Concentration - - Weight 48.1 kg (106 lb) 06/15/2012 1:25 PM LATEX CASTER Height 158.8 cm (5' 2.5) 10/03/2011 10:17 AM CD T Body Mass Index 19.08 10/03/2011 10:17 AM CDT Plan of Treatment Not on file Procedures Procedure Name Priority Date/Time Associated Diagnosis Comments BASIC METABOLIC PANEL Routine 10/03/2011 10:54 AM CDT Left sided abdominal pain Left flank pain Fever, unspecified Nausea and vomiting Dizziness HIV 1 AND 2 ANTIBODY (QUEST) Routine 08/25/2010 9:28 AM LATEX CASTER Supervision of other normal HCL LIPID PANEL, REFLEX TO DIRECT LDL Routine 04/05/2010 10:29 AM CDT Lipid Screening HCL PAP THIN LAYER SCREEN Routine 04/05/2010 12:00 AM CDT Screening for Malignant Neoplasm of the Cervix from Last 3 Months or Most Recently Relevant to Health Maintenance Results * (ABNORMAL) Basic metabolic panel (10/03/2011 10:54 AM CDT) Sodium 139 133 - 144 mmol/L [facility] Potassium 3.6 3.4 - 5.3 mmol/L [facility] Chloride 101 94 - 109 mmol/L [facility] Carbon Dioxide 26 20 - 32 mmol/L [facility] Anion Gap 12 6 - 17 mmol/L [facility] Glucose 137(H) 60 - 99 mg/dL [facility] Urea Nitrogen 11 5 - 24 mg/dL [facility] Creatinine 0.82 0.52 - 1.04 mg/dL [facility] GFR Estimate 78 >60 mL/min/1.7 m2 [facility] GFR Estimate If Black >90 >60 mL/min/1.7 m2 [facility] Calcium 8.4(L) 8.5 - 10.4 mg/dL [facility] Blood specimen (specimen) 10/03/2011 10:54 AM CDT 10/03/2011 10:59 AM CDT Lina Rodriguez PA-C LAB - BLOOD OR DERABLES Performing Organization Address City/[facility]/ZIP Co de Phone Number [facility] [address] * HIV 1 and 2 Antibody (08/25/2010 9:28 AM LATEX CASTER) HIV 1&2 Antibody Negative NEG [facility] Blood specimen (specimen) 08/25/2010 9:28 AM LATEX CASTER 08/25/2010 9:29 AM LATEX CASTER Ailyn Leyva NP LAB - BLOOD ORDERABL ES Performing Organization Address City/[facility]/ZIP Co de Phone Number [facility] * LIPID PANEL, REFLEX TO DIRECT LDL (04/05/2010 10:29 AM CDT) Cholesterol 176 0 - 200 mg/dL [facility] Comment: LDL Cholesterol is the primary guide to therapy. The NCEP recommends further evaluation of: patients with cholesterol <200 mg/dL if additional risk factors are present, cholesterol >240 mg/dL, triglycerides >150 mg/dL, or HDL <40 mg/dL. Triglycerides 53 0 - 150 mg/dL [facility] Comment:Fasting specimen HDL Cholesterol 57 50 - 110 mg/dL [facility] LDL Cholesterol Calculated 108 0 - 129 mg/dL [facility] Comment: LDL Cholesterol is the primary guide to therapy: LDL-cholesterol goal in high risk patients is <100 mg/dL and in very high risk patients is <70 mg/dL. VLDL-Cholesterol 11 0 - 30 mg/dL [facility] Cholesterol/HDL Ratio 3.1 0.0 - 5.0 [facility] 04/05/2010 10:2 9 AM CDT 04/05/2010 10:30 AM CDT Jean Springer MD LABORATORY [facility] [place] [place] [address] * A THIN LAYER PAP SCREEN [G0123.000] (04/05/2010 12:00 AM CDT) PAP NIL COPATH Copath Report Patient Name: KINJAL TURCIOS MR#: [id number] Specimen #: [id number] Collected: 04/05/2010 Received: 04/06/2010 Reported: 04/07/2010 15:06 Ordering Phy(s): JEAN SPRINGER SPECIMEN/STAIN PROCESS: Pap thin layer prep screening (Surepath) ? Pap-Cyto x 1, Reflex HPV x 1 SOURCE: Cervical, endocervical Pap thin layer prep screening (Surepath) SPECIMEN ADEQUACY: Satisfactory for evaluation. -Transformation zone component present. CYTOLOGIC INTERPRETATION: Negative for Intraepithelial Lesion or Malignancy Electronically signed out by: ABHIJIT Bolden(ASCP) Processed and screened at [facility], [facility] CLINICAL HISTORY: LMP: NO LMP RECORDED Previous normal pap: NIL, 02/10/09 Previous normal pap: NIL, 04/17/06 Previous normal pap: NIL, 12/07/04, Papanicolaou Test Limitations: ??Cervical cytology is a screening test with limited sensitivity; regular screening is critical for cancer prevention; Pap tests are primarily effective for the diagnosis/preventi on of squamous cell carcinoma, not adenocarcinomas or other cancers. TESTING LAB LOCATION: [address] [place] [address] COLLECTION SITE: Client: ??[facility] Location: FRWOB (W) COPATH 04/05/2010 04/06/2010 10: 30 AM CDT Jean Springer MD LABORATORY COP[place] from Last 3 Months or Most Recently Relevant to Health Maintenance Care Teams Cured Meats Supervisor Relationship Specialty Start Date End Date Mk Dodge, DUC [facility] [address] [facility] [address] [place] [address] PCP - Ophthalmology 04/21/08 Frw, None PCP - Obstetrics/Gynecology Family Practice 08/25/10 No Ref-Primary, Physician PCP - General 07/09/21
--- OUTSIDE RECORDS SUMMARY | 2024-01-09 13:41 | XMS_ITS | Encounter Summary ---
Author Organization [place] Address [address] [place] [address]. [place] [address] Care Team Providers Care Commercial Sheet Metal Foreman Name Role Phone Mk Dodge OD Unavailable [phone] Frw, None Primary Care Provider Unavailabl e Frw, None Unavailable Unavailable Encounter Details Date Type Department Care Team (Late st Contact Info) Description 02/04/2011 9:22 AM CDT [facility] in [facility] [address] [place] [phone] Wen Jo MD [address] [place] [address] Social History Tobacco Use Types [...] on filedocumented in this encounter Care Teams Commercial Sheet Metal Foreman Relationship Specialty Start Date End Date Mk Dodge OD [facility] [address] [place] [address] [address] [place], [place] [phone] PCP - Ophthalmology 04/21/08 Frw, None PCP - General Family Practice 08/25/10 03/23/17 Frw, None PCP - Obstetrics/Gynecology Family Practice 08/25/10 documented as of this encounter
--- OUTSIDE RECORDS SUMMARY | 2024-01-09 13:41 | XMS_ITS | Encounter Summary ---
Author Organization [place] Address [address] [place] [address] Care Team Providers Care Rehab Nursing Tech Name Role Phone Mk Dodge OD Unavailable Frw, None Primary Care Provider Unavailabl e Frw, None Unavailable Unavailable Encounter Details Date Type Department Care Team (Late st Contact Info) Description 01/14/2011 4:24 PM CDT [facility] in [facility] [address] [place] [phone] Pam [place] [address] Social History Tobacco Use Types Packs/Day Years [...] on filedocumented in this encounter Care Teams Rehab Nursing Tech Relationship Specialty Start Date End Date Mk Dodge, DUC [facility] [address] [place] [address] [address] [place] [address] PCP - Ophthalmology 04/21/08 Frw, None PCP - General Family Practice 08/25/10 03/23/17 Frw, None PCP - Obstetrics/Gynecology Family Practice 08/25/10 documented as of this encounter
--- OUTSIDE RECORDS SUMMARY | 2024-01-09 13:41 | XMS_ITS | Encounter Summary ---
Author Organization [place] Address [address] [place] [address]. [place] [address] Care Team Providers Care Food Production Manager Name Role Phone Mk Dodge OD Unavailable [phone] Frw, None Primary Care Provider Unavailabl e Frw, None Unavailable Unavailable Encounter Details Date Type Department Care Team (Late st Contact Info) Description 01/06/2011 11:00 AM T [facility] in [facility] [address] [place] [phone] Wen Jo MD [address] [place] [address] Social History Tobacco Use Types [...] filedocumented in this encounter Care Teams Food Production Manager Relationship Specialty Start Date End Date Mk Dodge OD [facility] [address] [place] [address] [address] [place], [place] [phone] PCP - Ophthalmology 04/21/08 Frw, None PCP - General Family Practice 08/25/10 03/23/17 Frw, None PCP - Obstetrics/Gynecology Family Practice 08/25/10 documented as of this encounter
--- OUTSIDE RECORDS SUMMARY | 2024-01-09 13:41 | XMS_ITS | Encounter Summary ---
Author Organization [place] Address [address] [place] [address]. [place] [address] Care Team Providers Care Farm Operations Technical Director Name Role Phone Mk Dodge OD Unavailable [phone] Frw, None Primary Care Provider Unavailabl e Frw, None Unavailable Unavailable No Ref-Primary, Physician Primary Care Provider Reason for Visit * Reason Onset Date Comments Refill Request 01/19/2011 ambien Encounter Details Date Type Department Care Team (Late st Contact Info) Description 01/19/2011 Refill in [place] [facility] [address] [place] [phone] Wen Jo MD [address] [place] [address] Refill Request (ambien) Social History Tobacco Use [...] on filedocumented in this encounter Care Teams Farm Operations Technical Director Relationship Specialty Start Date End Date Mk Dodge OD [facility] 701 [facility] [address] [place] [address] PCP - Ophthalmology 04/21/08 Frw, None PCP - General Family Practice 08/25/10 03/23/17 Frw, None PCP - Obstetrics/Gynecology Family Practice 08/25/10 No Ref-Primary, Physician PCP - General 07/09/21 documented as of this encounter
--- OUTSIDE RECORDS SUMMARY | 2024-01-09 13:42 | XMS_ITS | Encounter Summary ---
Author Organization [facility] Address [address] [place] [address] Care Team Providers Care Medical Driver Name Role Phone Jeanine De La Torre PA-C Primary Care Provider [phone] Reason for Visit * Reason Comments Med Refill Encounter Details Date Type Department Care Team (Late st Contact Info) Description 12/31/2018 Refill [facility] [address] [place] [address] Madison Zamudio APRN, TRIMMING CUTTER [address] [place] [address] Acute non-recurrent sinusitis, unspecified location Social History Tobacco Use Types Packs/Day Years Used Date Smoking Tobacco: Never Smokeless Tobacco: Never PHQ-2 Answer Date Recorded PHQ-2 Score 0 12/25/2018 Sex and Gender Information Value Date Recorded Sex Assigned at Female 08/10/2022 7:13 AM DRAWER IN Gender Identity Female 08/10/2022 7:13 AM DRAWER IN Sexual Orientation Not on file documented as of this encounter Miscellaneous Notes * Telephone Encounter - Madison Zamudio APRN, TRIMMING CUTTER - 01/02/2019 12:01 PM CDT The patient [...] Last Rx azithromycin (ZITHROMAX) 250 MG tablet [[id number]] ??ENDED ?? Order Details Dose, Route, Frequency: [...] location documented in this encounter Care Teams Medical Driver Relationship Specialty Start Date End Date Jeanine De La Torre PA-C [address] [place] [address] PCP - General Family Medicine 04/04/23 documented as of this encounter
--- OUTSIDE RECORDS SUMMARY | 2024-01-09 13:42 | XMS_ITS | Encounter Summary ---
Author Organization [place] Address [address] [place] [address] Care Team Providers Care Senior Clinical Research Scientist Name Role Phone Placido Velazco MD Primary Care Provider [phone] Jean Abel MD Unavailable Unavailable Mk Dodge OD Unavailable [phone] Frw, None Primary Care Provider Unavailabl e Frw, None Unavailable Unavailable No Ref-Primary, Physician Primary Care Provider Encounter Details Date Type Department Care Team (Late st Contact Info) Description 04/08/2010 MyC Medical Advice [facility] in [place] CLAY PRESS OPERATOR [address] [place] [phone] Jean Abel MD Social History Tobacco Use [...] filedocumented in this encounter Care Teams Senior Clinical Research Scientist Relationship Specialty Start Date End Date Placido Velazco MD [facility] [address] [facility] [address] [place] [phone] PCP - General 08/15/00 08/24/10 Jean Abel MD PCP - Obstetrics/Gynecology 08/15/00 08/24/10 Mk Dodge OD [facility] [place] [address] [facility] [address] [place] [address] PCP - Ophthalmology 04/21/08 Frw, None PCP - General Family Practice 08/25/10 03/23/17 Frw, None PCP - Obstetrics/Gynecology Family Practice 08/25/10 No Ref-Primary, Physician PCP - General 07/09/21 documented as of this encounter
--- OUTSIDE RECORDS SUMMARY | 2024-01-09 13:42 | XMS_ITS | Encounter Summary ---
Author Organization [facility] Address [address] [place] [address] Care Team Providers Care Painting Machine Operator Name Role Phone Placido Velazco MD Primary Care Provider [phone] Jean Abel MD Unavailable Unavailable Mk Dodge OD Unavailable [phone] Frw, None Primary Care Provider Unavailabl e Frw, None Unavailable Unavailable No Ref-Primary, Physician Primary Care Provider Encounter Details Date Type Department Care Team (Late st Contact Info) Description 02/29/2008 MyC Medical Advice [facility] in [place] LABORATORY ANIMAL FACILITY SUPERVISOR [address] [place] [phone] Jean Abel MD Social History Tobacco Use [...] on filedocumented in this encounter Care Teams Painting Machine Operator Relationship Specialty Start Date End Date Placido Velazco MD [facility] [address] [facility] [address] [place] [address] PCP - General 08/15/00 08/24/10 Jean Abel MD PCP - Obstetrics/Gynecology 08/15/00 08/24/10 Mk Dodge OD [facility] [place] [address] [facility] [address] [place] [address] PCP - Ophthalmology 04/21/08 Frw, None PCP - General Family Practice 08/25/10 03/23/17 Frw, None PCP - Obstetrics/Gynecology Family Practice 08/25/10 No Ref-Primary, Physician PCP - General 07/09/21 documented as of this encounter
--- OUTSIDE RECORDS SUMMARY | 2024-01-09 13:42 | XMS_ITS | Clinical Summary ---
Author Organization [facility] er Address [address] [place] [address] Care Team Providers Care Pt Escort Name Role Phone Jeanine De La Torre PA-C Primary Care Provider [phone] Allergies Active Allergy Reactions Criticality Noted Date [...] Sex Assigned at Female 08/10/2022 7:13 AM TOUCH UP CARVER Gender Identity Female 08/10/2022 7:13 AM TOUCH UP CARVER Sexual Orientation Not on file Last Filed Vital Signs Vital Sign Reading Time Taken Comments Blood Pressure 114/82 08/09/2022 2:07 PM TOUCH UP CARVER Pulse 107 08/09/2022 2:07 PM TOUCH UP CARVER Temperature 36.7 ??C (98 ??F) 08/09/2022 2:07 PM TOUCH UP CARVER Respiratory Rate 16 08/09/2022 2:07 PM TOUCH UP CARVER Oxygen Saturation 98% 08/09/2022 2:07 PM TOUCH UP CARVER Inhaled Oxygen Concentration - - Weight 56.3 kg (124 lb 3.2 oz) 08/09/2022 2:07 P M TOUCH UP CARVER Height 158 cm (5' 2.21) 08/09/2022 2:07 PM TOUCH UP CARVER Body Mass Index 22.57 08/09/2022 2:07 PM TOUCH UP CARVER Plan of Treatment Health Maintenance Due Date [...] Recently Relevant to Health Maintenance Care Teams Pt Escort Relationship Specialty Start Date End Date Jeanine De La Torre PA-C [address] [place] [phone] PCP - General Family Medicine 04/04/23
--- OUTSIDE RECORDS SUMMARY | 2024-01-09 13:42 | XMS_ITS | Clinical Summary ---
Author Organization [facility] Address [address] [place] [address] Care Team Providers Care Sales Consultant Name Role Phone Elsewhere, Pcp Primary Care Provider Unavailabl e Source Comments Patient records contain information from all sites at [facility]. For routine questions regarding patient records, call [phone] during business hours, M-F 8:00 AM - 5:00 PM Central Time. Record requests for emergency care only can be directed to [phone] at any time.[facility] Allergies Active Allergy Reactions Criticality Noted Date [...] 10/13/2022 How often do you attend [facility] or muslim services? Patient declined 10/13/2022 Do you belong [...] Answer Date Recorded PHQ-2 Score 0 03/23/2020 [facility] Occupational Stress Questionnaire Answer Date [...] place to sleep or slept in a group home (including now)? No 10/13/2022 Nutrition Answer [...] Sex Assigned at Female 06/29/2017 5:49 AM CAREER RESOURCE SPECIALIST Gender Identity Female 06/29/2017 5:49 AM CAREER RESOURCE SPECIALIST Sexual Orientation Straight 06/29/2017 5: 49 AM CAREER RESOURCE SPECIALIST Last Filed Vital Signs Vital Sign Reading Time Taken Comments Blood Pressure 114/59 04/24/2023 7:46 AM CDT Pulse 70 04/24/2023 7:46 AM CDT Temperature 36.7 ??C (98 ??F) 08/28/2023 12:28 PM CAREER RESOURCE SPECIALIST Respiratory Rate 16 04/24/2023 7:46 AM CDT Oxygen Saturation 98% 03/23/2020 7:38 AM CDT Inhaled Oxygen Concentration - - Weight 55.8 kg (123 lb 0.3 oz) 04/24/2023 7:46 A M CDT Height 159 cm (5' 2.6) 08/29/2022 10:50 AM CAREER RESOURCE SPECIALIST Body Mass Index 22.07 08/29/2022 10:50 AM CAREER RESOURCE SPECIALIST Plan of Treatment Health Maintenance Due Date [...] TOMOSYNTHESIS Routine 11/27/2015 3:19 PM CDT PATHOLOGY TOE CLOSING MACHINE TENDER CYTOLOGY Routine 6 2:35 PM CDT from [...] CDT Lavon Alvarez P.A.-C. LAB BLOOD ADD-ON [facility] [address] [place] [address], [facility] CNFL [facility] [place] [address] * Lipid Panel (11/29/2016 7:04 AM CDT) [...] for FH and FDB is available through [facility]: FH/ADH Genetic Reflex Panel (test ADHP). Acquired (non-genetic) causes of markedly increased LDL cholesterol include cholestatic liver disease due to the presence of LpX. If a genetic form of hypercholesterolemia is suspected, family studies including biochemical testing for lipids (total cholesterol,triglycerides, LDL cholesterol and HDL cholesterol) are recommended. ??Please contact the laboratory at or the on-line test catalog at [facility] for information about how to order these [...] M.D. IMG BI PROCEDUR ES * Pathology TOE CLOSING MACHINE TENDER Cytology (11/27/2015 2:35 PM CDT) 11/27/2015 2:35 PM CDT Narrative [facility] - 12/04/2015 10:39 AM CDT Pat: KINJAL TURCIOS ([id number]) Age/Sex: 40 ??F ??Loc: ? -00 ([facility] ) CoPath ??SHLOMO: 11/27/15 14:35 ??REC: 11/27/15 14:35 ??PHYS: , Cytology ?ThinPrep cervical specimen Patient Name: KINJAL TURCIOS MR#: [id number] Submitting Physician: WESLY ??CHELO SALVADOR ??[id number] Specimen #[id number] Performing Lab: ??[place] [address] CLINICAL HISTORY: Last menstrual period: Status: Specimen [...] with Genotyping, PCR, ThinPrep, testing performed by [facility] HPV High Risk type 16, PCR [...] Wesly Henao M.D. LAB PAP COPATH ORDERABLES [facility] from Last 3 Months or Most Recently Relevant to Health Maintenance Care Teams Sales Consultant Relationship Specialty Start Date End Date Elsewhere, Pcp PCP - General Internal Medicine 11/07/22
--- OUTSIDE RECORDS SUMMARY | 2024-01-09 13:42 | XMS_ITS | Continuity of Care Document ---
Author Name [facility] Organization [facility] Care Team Providers Care Credit Support Specialist Name Role Phone [facility] Unavailable Unavailable Social History Combined list of available smoking, tobacco, and other social history from Department of Defense and Veterans Affairs facilities. Social History Type Response Date Comment Sourc e This section is an empty social history section. [facility]
--- OUTSIDE RECORDS SUMMARY | 2024-01-09 13:42 | XMS_ITS ---
Author Organization [facility] Address [address] [place] [address] Care Team Providers Care Regional Clinical Research Associate Name Role Phone Unavailable Unavailable Unavailable Surgery Details Not on file Complications Check Surgery Details section. Procedure Estimated Blood Loss Check Surgery Details section. Procedure Findings Check Surgery Details section. Procedure Specimens Taken Check Surgery Details section.
--- OUTSIDE RECORDS SUMMARY | 2024-01-09 13:42 | XMS_ITS | Encounter Summary ---
Author Organization [facility] Address [address] [place] [address] Care Team Providers Care Meals On Wheels Driver Name Role Phone Placido Velazco MD Primary Care Provider [phone] Jean Abel MD Unavailable Unavailable Mk Dodge OD Unavailable [phone] Frw, None Primary Care Provider Unavailabl e Frw, None Unavailable Unavailable No Ref-Primary, Physician Primary Care Provider Encounter Details Date Type Department Care Team (Late st Contact Info) Description 02/13/2009 MyC Medical Advice [facility] in [place] SALES REP [address] [place] [phone] Jean Abel MD Social History Tobacco Use [...] on filedocumented in this encounter Care Teams Meals On Wheels Driver Relationship Specialty Start Date End Date Placido Velazco MD [facility] [address] [place] [phone] PCP - General 08/15/00 08/24/10 Jean Abel MD PCP - Obstetrics/Gynecology 08/15/00 08/24/10 Mk Dodge OD [facility] [place] [address] [facility] [address] [place] [address] PCP - Ophthalmology 04/21/08 Frw, None PCP - General Family Practice 08/25/10 03/23/17 Frw, None PCP - Obstetrics/Gynecology Family Practice 08/25/10 No Ref-Primary, Physician PCP - General 07/09/21 documented as of this encounter
--- OUTSIDE RECORDS SUMMARY | 2024-01-09 13:42 | XMS_ITS | Referral Summary ---
Author Organization [facility] Address [address] [place] [address] Care Team Providers Care Table Filler Name Role Phone Elsewhere, Pcp Primary Care Provider Unavailabl e Source Comments Patient records contain information from all sites at [facility]. For routine questions regarding patient records, call [phone] during business hours, M-F 8:00 AM - 5:00 PM Central Time. Record requests for emergency care only can be directed to [phone] at any time.[facility] Allergies Active Allergy Reactions Criticality Noted Date [...] How often do you attend chur or scientologist services? Patient declined 10/13/2022 Do you belong to any clubs o r organizations such as episcopal groups, unions, fraternal or athletic groups, or [...] Answer Date Recorded PHQ-2 Score 0 03/23/2020 [facility] [place] [facility] Occupat ional Health - Occupational Stress [...] place to sleep or slept in a retirement (including now)? No 10/13/2022 Nutrition Answer Date [...] Sex Assigned at Female 06/29/2017 5:49 AM NURSE BEHAVIORAL HEALTH CARE Gender Identity Female 06/29/2017 5:49 AM NURSE BEHAVIORAL HEALTH CARE Sexual Orientation Straight 06/29/2017 5: 49 AM NURSE BEHAVIORAL HEALTH CARE Last Filed Vital Signs Vital Sign Reading Time Taken Comments Blood Pressure 114/59 04/24/2023 7:46 AM CDT Pulse 70 04/24/2023 7:46 AM CDT Temperature 36.7 ??C (98 ??F) 08/28/2023 12:28 PM NURSE BEHAVIORAL HEALTH CARE Respiratory Rate 16 04/24/2023 7:46 AM CDT Oxygen Saturation 98% 03/23/2020 7:38 AM CDT Inhaled Oxygen Concentration - - Weight 55.8 kg (123 lb 0.3 oz) 04/24/2023 7:46 A M CDT Height 159 cm (5' 2.6) 08/29/2022 10:50 AM NURSE BEHAVIORAL HEALTH CARE Body Mass Index 22.07 08/29/2022 10:50 AM NURSE BEHAVIORAL HEALTH CARE Plan of Treatment Not on file Procedures Procedure Name Priority Date/Time Associated Diagnosis Comments COMPREHENSIVE METABOLIC PANEL, S/P STAT 03/22/2020 10:08 AM CDT LIPID PANEL, S Routine 11/29/2016 7:04 AM CDT BI BREAST SCREENING BILATERAL WITH TOMOSYNTHESIS Routine 11/27/2015 3:19 PM CDT PATHOLOGY VISCOSE DEPARTMENT WORKER CYTOLOGY Routine 6 2:35 PM CDT from [...] CDT Lavon Alvarez P.A.-C. LAB BLOOD ADD-ON [facility] [address] [place] [address], [facility] CNFL [facility] in [address] [address] * Lipid Panel (11/29/2016 7:04 AM CDT) [...] for FH and FDB is available through [facility]: FH/ADH Genetic Reflex Panel (test ADHP). Acquired (non-genetic) causes of markedly increased LDL cholesterol include cholestatic liver disease due to the presence of LpX. If a genetic form of hypercholesterolemia is suspected, family studies including biochemical testing for lipids (total cholesterol,triglycerides, LDL cholesterol and HDL cholesterol) are recommended. ??Please contact the laboratory at or the on-line test catalog at [facility] for information about how to order these [...] M.D. IMG BI PROCEDUR ES * Pathology VISCOSE DEPARTMENT WORKER Cytology (11/27/2015 2:35 PM CDT) 11/27/2015 2:35 PM CDT Narrative [facility] - 12/04/2015 10:39 AM CDT Pat: KINJAL TURCIOS ([id number]) Age/Sex: 40 ??F ??Loc: ? -00 (RWN ) CoPath ??SHLOMO: 11/27/15 14:35 ??REC: 11/27/15 14:35 ??PHYS: , Cytology ?ThinPrep cervical specimen Patient Name: KINJAL TURCIOS MR#: [id number] Submitting Physician: WESLY ??CHELO SALVADOR ??[id number] Specimen #[id number] Performing Lab: ??[place] [address] CLINICAL HISTORY: Last menstrual period: Status: Specimen [...] with Genotyping, PCR, ThinPrep, testing performed by [facility] HPV High Risk type 16, PCR [...] Wesly Henao M.D. LAB PAP COPATH ORDERABLES [facility] from Last 3 Months or Most Recently Relevant to Health Maintenance Care Teams Table Filler Relationship Specialty Start Date End Date Elsewhere, Pcp PCP - General Internal Medicine 11/07/22
--- OUTSIDE RECORDS SUMMARY | 2024-01-09 13:42 | XMS_ITS | Encounter Summary ---
Author Organization [place] Address [address] [place] [address] Care Team Providers Care Residential Youth Counselor Name Role Phone Placido Velazco MD Primary Care Provider [phone] Jean Abel MD Unavailable Unavailable Mk Dodge OD Unavailable [phone] Frw, None Primary Care Provider Unavailabl e Frw, None Unavailable Unavailable No Ref-Primary, Physician Primary Care Provider Encounter Details Date Type Department Care Team (Late st Contact Info) Description 04/05/2010 MyC Medical Advice [facility] in [place] MERCHANDISE DELIVERER [address] [place] [phone] Jean Abel MD Social History Tobacco Use [...] on filedocumented in this encounter Care Teams Residential Youth Counselor Relationship Specialty Start Date End Date Placido Velazco MD [facility] [address] [facility] [address] [place] [phone] PCP - General 08/15/00 08/24/10 Jean Abel MD PCP - Obstetrics/Gynecology 08/15/00 08/24/10 Mk Dodge OD [facility] [place] [address] [facility] [address] [place] [address] PCP - Ophthalmology 04/21/08 Frw, None PCP - General Family Practice 08/25/10 03/23/17 Frw, None PCP - Obstetrics/Gynecology Family Practice 08/25/10 No Ref-Primary, Physician PCP - General 07/09/21 documented as of this encounter
--- OUTSIDE RECORDS SUMMARY | 2024-01-09 13:42 | XMS_ITS | Encounter Summary ---
Author Organization [facility] Address [address] [place] [address] Care Team Providers Care Parachute Crown Sewer Name Role Phone Placido Velazco MD Primary Care Provider [phone] Jean Abel MD Unavailable Unavailable Mk Dodge OD Unavailable [phone] Frw, None Primary Care Provider Unavailabl e Frw, None Unavailable Unavailable No Ref-Primary, Physician Primary Care Provider Encounter Details Date Type Department Care Team (Late st Contact Info) Description 02/25/2008 MyC Medical Advice [facility] in [place] ENGINEER GEOPHYSICAL LABORATORY [address] [place] [phone] Jean Abel MD Social History Tobacco Use [...] on filedocumented in this encounter Care Teams Parachute Crown Sewer Relationship Specialty Start Date End Date Placido Velazco MD [facility] [address] [facility] [address] [place] [address] PCP - General 08/15/00 08/24/10 Jean Abel MD PCP - Obstetrics/Gynecology 08/15/00 08/24/10 Mk Dodge OD [facility] [place] [address] [facility] [address] [place] [address] PCP - Ophthalmology 04/21/08 Frw, None PCP - General Family Practice 08/25/10 03/23/17 Frw, None PCP - Obstetrics/Gynecology Family Practice 08/25/10 No Ref-Primary, Physician PCP - General 07/09/21 documented as of this encounter
--- NOTE | 2024-01-09 14:00 | CRLHL7_ITS ---
For Patients: As a result of the Century Cures Act, medical imaging exams and procedure reports are released immediately into your electronic medical record. You may view this report before your referring provider. If you have questions, please contact your health care provider. BILATERAL SCREENING MAMMOGRAM WITH COMPUTER-AIDED DETECTION AND TOMOSYNTHESIS TECHNIQUE: CC and MLO views were obtained. These mammographic images have been obtained using full-field digital technique. These mammographic images were interpreted with the benefit of computer-aided detection. Breast Tomosynthesis was used in this interpretation. COMPARISON FILM: 11/27/15. FINDINGS: The breasts are heterogeneously dense, which may obscure small masses. IMPRESSION: There is no radiographic evidence for malignancy. ASSESSMENT: BI-RADS Category 2: Benign RECOMMENDATION: Routine screening mammogram in 1 year. A lay language report of this examination will be provided to the patient. Zeyad Buchanan M.D. Diagnostic Radiologist [email or web address] SP/Dictated by: Zeyad Buchanan MD @ 01/12/2024 10:31:00 AM (Electronically Signed)
== END 2024-01-09 13:40 | disposition home or self-care (01) ==
LOC: MAMMO 13:39
PROVIDERS: PCP Obstetrics & Gynecology
DX: Z12.31 Encounter for screening mammogram for malignant neoplasm of breast (principal); R92.2 Inconclusive mammogram
CPT/HCPCS: 77063; 77067

== ENCOUNTER 2024-02-01 06:04 | Day surgery (SDC) | payer BC, SELFPAY ==
[2024-02-01] VITALS (13 sets, daily range): BP systolic 111–146; BP diastolic 42–89; PULSE 48–65; RESP 12–16; TEMP 36.1–36.4; O2SAT 97–100; BMI 21.7
--- OUTSIDE RECORDS SUMMARY | 2024-02-01 06:06 | XMS_ITS | Referral Summary ---
Author Organization [place] Address [facility] [place] [address] Care Team Providers Care Hematology Nurse Name Role Phone Mk Dodge OD Unavailable Frw, None Unavailable Unavailable No Ref-Primary, Physician Primary Care Provider Allergies Active Allergy Reactions Criticality Noted Date Comments No Known Drug Allergy 02/19/2008 Seasonal Allergies 11/01/2004 Medications Medication Sig Dispensed Refills Start Date End Date Status fluticasone (FLONASE) 50 MCG/ACT nasal sprayIndications:Ac nahid maxillary sinusitis [place] 1-2 sprays into both nostrils daily. 1 [...] Getting School Help Needed Not on file 01/16 Sex and Gender Information Value Date Recorded Sex Assigned at Not on file Gender Identity Not on file Sexual Orientation Not on file Last Filed Vital Signs Vital Sign Reading Time Taken Comments Blood Pressure 122/61 07/12/2013 6:36 PM ROTARY DRUM TANNER Pulse 81 07/12/2013 6:36 PM ROTARY DRUM TANNER Temperature 37 ??C (98.6 ??F) 07/12/2013 6:36 PM ROTARY DRUM TANNER Respiratory Rate 16 10/26/2005 11:15 AM CDT Oxygen Saturation 96% 07/12/2013 6:36 PM ROTARY DRUM TANNER Inhaled Oxygen Concentration - - Weight 48.1 kg (106 lb) 06/15/2012 1:25 PM ROTARY DRUM TANNER Height 158.8 cm (5' 2.5) 10/03/2011 10:17 AM CD T Body Mass Index 19.08 10/03/2011 10:17 AM CDT Plan of Treatment Not on file Procedures Procedure Name Priority Date/Time Associated Diagnosis Comments BASIC METABOLIC PANEL Routine 10/03/2011 10:54 AM CDT Left sided abdominal pain Left flank pain Fever, unspecified Nausea and vomiting Dizziness HIV 1 AND 2 ANTIBODY (QUEST) Routine 08/25/2010 9:28 AM ROTARY DRUM TANNER Supervision of other normal HCL LIPID PANEL, REFLEX TO DIRECT LDL Routine 04/05/2010 10:29 AM CDT Lipid Screening HCL PAP THIN LAYER SCREEN Routine 04/05/2010 12:00 AM CDT Screening for Malignant Neoplasm of the Cervix from Last 3 Months or Most Recently Relevant to Health Maintenance Results * (ABNORMAL) Basic metabolic panel (10/03/2011 10:54 AM CDT) Sodium 139 133 - 144 mmol/L [facility] Potassium 3.6 3.4 - 5.3 mmol/L [facility] Chloride 101 94 - 109 mmol/L [facility] Carbon Dioxide 26 20 - 32 mmol/L [facility] Anion Gap 12 6 - 17 mmol/L [facility] Glucose 137(H) 60 - 99 mg/dL [facility] Urea Nitrogen 11 5 - 24 mg/dL [facility] Creatinine 0.82 0.52 - 1.04 mg/dL [facility] GFR Estimate 78 >60 mL/min/1.7 m2 [facility] GFR Estimate If Black >90 >60 mL/min/1.7 m2 [facility] Calcium 8.4(L) 8.5 - 10.4 mg/dL [facility] Blood specimen (specimen) 10/03/2011 10:54 AM CDT 10/03/2011 10:59 AM CDT Lina Rodriguez PA-C LAB - BLOOD OR DERABLES Performing Organization Address City/[facility]/ZIP Co de Phone Number [facility] [place] [address] * HIV 1 and 2 Antibody (08/25/2010 9:28 AM ROTARY DRUM TANNER) HIV 1&2 Antibody Negative [facility] Blood specimen (specimen) 08/25/2010 9:28 AM ROTARY DRUM TANNER 08/25/2010 9:29 AM ROTARY DRUM TANNER Ailyn Leyva NP LAB - BLOOD ORDERABL ES Performing Organization Address City/[facility]/ZIP Co de Phone Number [facility] * LIPID PANEL, REFLEX TO DIRECT LDL (04/05/2010 10:29 AM CDT) Cholesterol 176 0 - 200 mg/dL [facility] Comment: LDL Cholesterol is the primary guide to therapy. The NCEP recommends further evaluation of: patients with cholesterol <200 mg/dL if additional risk factors are present, cholesterol >240 mg/dL, triglycerides >150 mg/dL, or HDL <40 mg/dL. Triglycerides 53 0 - 150 mg/dL [facility] Comment:Fasting specimen HDL Cholesterol 57 50 - 110 mg/dL [facility] LDL Cholesterol Calculated 108 0 - 129 mg/dL [facility] Comment: LDL Cholesterol is the primary guide to therapy: LDL-cholesterol goal in high risk patients is <100 mg/dL and in very high risk patients is <70 mg/dL. VLDL-Cholesterol 11 0 - 30 mg/dL [facility] Cholesterol/HDL Ratio 3.1 0.0 - 5.0 [facility] 04/05/2010 10:2 9 AM CDT 04/05/2010 10:30 AM CDT Jean Springer MD LABORATORY [facility]/[place] [address] * A THIN LAYER PAP SCREEN [G0123.000] (04/05/2010 12:00 AM CDT) PAP NIL COPATH Copath Report Patient Name: KINJAL TURCIOS MR#: [id number] Specimen #: [id number] Collected: 04/05/2010 Received: 04/06/2010 Reported: 04/07/2010 15:06 Ordering Phy(s): JEAN SPRINGER SPECIMEN/STAIN PROCESS: Pap thin layer prep screening (Sure[facility]) ? Pap-Cyto x 1, Reflex HPV x 1 SOURCE: Cervical, endocervical Pap thin layer prep screening (Sure[facility]) SPECIMEN ADEQUACY: Satisfactory for evaluation. -Transformation zone component present. CYTOLOGIC INTERPRETATION: Negative for Intraepithelial Lesion or Malignancy Electronically signed out by: ABHIJIT Bolden(ASCP) Processed and screened at [facility], [facility] CLINICAL HISTORY: LMP: NO LMP RECORDED Previous normal pap: NIL, 02/10/09 Previous normal pap: NIL, 04/17/06 Previous normal pap: NIL, 12/07/04, Papanicolaou Test Limitations: ??Cervical cytology is a screening test with limited sensitivity; regular screening is critical for cancer prevention; Pap tests are primarily effective for the diagnosis/preventi on of squamous cell carcinoma, not adenocarcinomas or other cancers. TESTING LAB LOCATION: [address] [place] [address] COLLECTION SITE: Client: ??[facility] Location: [facility] (W) COPATH 04/05/2010 04/06/2010 10: 30 AM CDT Jean Springer MD LABORATORY COPATH from Last 3 Months or Most Recently Relevant to Health Maintenance Care Teams Hematology Nurse Relationship Specialty Start Date End Date Mk Dodge, DUC [facility] [address] [facility] [address] [place] [address] PCP - Ophthalmology 04/21/08 Frw, None PCP - Obstetrics/Gynecology Family Practice 08/25/10 No Ref-Primary, Physician PCP - General 07/09/21
--- OUTSIDE RECORDS SUMMARY | 2024-02-01 06:06 | XMS_ITS | Clinical Summary ---
Author Organization [place] Address [facility] [place] [address] Care Team Providers Care Cans Vacuum Tester Name Role Phone Mk Dodge OD Unavailable [phone] Frw, None Unavailable Unavailable No Ref-Primary, Physician Primary Care Provider Allergies Active Allergy Reactions Criticality Noted Date Comments No Known Drug Allergy 02/19/2008 Seasonal Allergies 11/01/2004 Medications Medication Sig Dispensed Refills Start Date End Date Status fluticasone (FLONASE) 50 MCG/ACT nasal sprayIndications:Ac nahid maxillary sinusitis [place] 1-2 sprays into both nostrils daily. 1 [...] Comments Blood Pressure 122/61 07/12/2013 6:36 PM RADIATION / CHEMISTRY TECHNICIAN Pulse 81 07/12/2013 6:36 PM RADIATION / CHEMISTRY TECHNICIAN Temperature 37 ??C (98.6 ??F) 07/12/2013 6:36 PM RADIATION / CHEMISTRY TECHNICIAN Respiratory Rate 16 10/26/2005 11:15 AM CDT Oxygen Saturation 96% 07/12/2013 6:36 PM RADIATION / CHEMISTRY TECHNICIAN Inhaled Oxygen Concentration - - Weight 48.1 kg (106 lb) 06/15/2012 1:25 PM RADIATION / CHEMISTRY TECHNICIAN Height 158.8 cm (5' 2.5) 10/03/2011 10:17 [...] (once per calendar year) 2023 INFLUENZA VACCINE (#1) 2024 , 05/05/2020, 04/19/2019, Additional history exists HEPATITIS B [...] 2 ANTIBODY (QUEST) Routine 08/25/2010 9:28 AM RADIATION / CHEMISTRY TECHNICIAN Supervision of other normal HCL LIPID PANEL, REFLEX TO DIRECT LDL Routine 04/05/2010 10:29 AM CDT Lipid Screening HCL PAP THIN LAYER SCREEN Routine 04/05/2010 12:00 AM CDT Screening for Malignant Neoplasm of the Cervix from Last 3 Months or Most Recently Relevant to Health Maintenance Results * (ABNORMAL) Basic metabolic panel (10/03/2011 10:54 AM CDT) Sodium 139 133 - 144 mmol/L [facility] Potassium 3.6 3.4 - 5.3 mmol/L [facility] Chloride 101 94 - 109 mmol/L [facility] Carbon Dioxide 26 20 - 32 mmol/L [facility] Anion Gap 12 6 - 17 mmol/L [facility] Glucose 137(H) 60 - 99 mg/dL [facility] Urea Nitrogen 11 5 - 24 mg/dL [facility] Creatinine 0.82 0.52 - 1.04 mg/dL [facility] GFR Estimate 78 >60 mL/min/1.7 m2 [facility] GFR Estimate If Black >90 >60 mL/min/1.7 m2 [facility] Calcium 8.4(L) 8.5 - 10.4 mg/dL [facility] Blood specimen (specimen) 10/03/2011 10:54 AM CDT 10/03/2011 10:59 AM CDT Lina Rodriguez PA-C LAB - BLOOD OR DERABLES [facility] [address] * HIV 1 and 2 Antibody (08/25/2010 9:28 AM RADIATION / CHEMISTRY TECHNICIAN) HIV 1&2 Antibody Negative [facility] Blood specimen (specimen) 08/25/2010 9:28 AM RADIATION / CHEMISTRY TECHNICIAN 08/25/2010 9:29 AM RADIATION / CHEMISTRY TECHNICIAN Ailyn Leyva NP LAB - BLOOD ORDERABL ES [facility] * LIPID PANEL, REFLEX TO DIRECT LDL (04/05/2010 10:29 AM CDT) Cholesterol 176 0 - 200 mg/dL [facility] Comment: LDL Cholesterol is the primary guide to therapy. The NCEP recommends further evaluation of: patients with cholesterol <200 mg/dL if additional risk factors are present, cholesterol >240 mg/dL, triglycerides >150 mg/dL, or HDL <40 mg/dL. Triglycerides 53 0 - 150 mg/dL [facility] Comment:Fasting specimen HDL Cholesterol 57 50 - 110 mg/dL [facility] LDL Cholesterol Calculated 108 0 - 129 mg/dL [facility] Comment: LDL Cholesterol is the primary guide to therapy: LDL-cholesterol goal in high risk patients is <100 mg/dL and in very high risk patients is <70 mg/dL. VLDL-Cholesterol 11 0 - 30 mg/dL [facility] Cholesterol/HDL Ratio 3.1 0.0 - 5.0 [facility] 04/05/2010 10:2 9 AM CDT 04/05/2010 10:30 AM CDT Jean Springer MD LABORATORY [facility] [address] * A THIN LAYER PAP SCREEN [G0123.000] (04/05/2010 12:00 AM CDT) PAP PETEY Begum Report Patient Name: KINJAL TURCIOS MR#: [id number] Specimen #: [id number] Collected: 04/05/2010 Received: 04/06/2010 Reported: 04/07/2010 15:06 Ordering Phy(s): JEAN SPRINGER SPECIMEN/STAIN PROCESS: Pap thin layer prep screening (Surepath) ? Pap-Cyto x 1, Reflex HPV x 1 SOURCE: Cervical, endocervical Pap thin layer prep screening (Surepath) SPECIMEN ADEQUACY: Satisfactory for evaluation. -Transformation zone component present. CYTOLOGIC INTERPRETATION: Negative for Intraepithelial Lesion or Malignancy Electronically signed out by: ABHIJIT Bolden(ASCP) Processed and screened at [facility], [facility] CLINICAL HISTORY: LMP: NO LMP RECORDED Previous normal pap: NIL, 02/10/09 Previous normal pap: NIL, 04/17/06 Previous normal pap: NIL, 12/07/04, Papanicolaou Test Limitations: ??Cervical cytology is a screening test with limited sensitivity; regular screening is critical for cancer prevention; Pap tests are primarily effective for the diagnosis/preventi on of squamous cell carcinoma, not adenocarcinomas or other cancers. TESTING LAB LOCATION: [address] [place] [address] COLLECTION SITE: Client: ??[facility] Location: FRWOB (W) COPATH 04/05/2010 04/06/2010 10: 30 AM CDT Jean Springer MD LABORATORY [place] from Last 3 Months or Most Recently Relevant to Health Maintenance Care Teams Cans Vacuum Tester Relationship Specialty Start Date End Date Mk Dodge OD [address] [address] PCP - Ophthalmology 04/21/08 Frw, None PCP - Obstetrics/Gynecology Family Practice 08/25/10 No Ref-Primary, Physician PCP - General 07/09/21
--- OUTSIDE RECORDS SUMMARY | 2024-02-01 06:06 | XMS_ITS | Encounter Summary ---
Author Organization [place] Address [address] [place] [address]. [place] [address] Care Team Providers Care Demolition Crane Operator Name Role Phone Mk Dodge OD Unavailable Frw, None Primary Care Provider Unavailabl e Frw, None Unavailable Unavailable Encounter Details Date Type Department Care Team (Late st Contact Info) Description 02/10/2011 1:00 PM CDT [facility] in [facility] [address] [place] [phone] Wen Jo MD [address] [place] [address] Social History Tobacco Use Types [...] on filedocumented in this encounter Care Teams Demolition Crane Operator Relationship Specialty Start Date End Date Mk Dodge, DUC [facility] [address] [place] [address] [address] [place], [place] [id number] PCP - Ophthalmology 04/21/08 Frw, None PCP - General Family Practice 08/25/10 03/23/17 Frw, None PCP - Obstetrics/Gynecology Family Practice 08/25/10 documented as of this encounter
--- OUTSIDE RECORDS SUMMARY | 2024-02-01 06:06 | XMS_ITS | Encounter Summary ---
Author Organization [place] Address [facility] [place] [address] Care Team Providers Care Labor Specialist Name Role Phone Mk Dodge OD Unavailable Frw, None Primary Care Provider Unavailabl e Frw, None Unavailable Unavailable Encounter Details Date Type Department Care Team (Late st Contact Info) Description 01/15/2011 6:50 PM CDT [facility] in [facility] [address] [place] [phone] Claudia Meyers MD [facility] [address] [place] [address] Social History Tobacco Use Types Packs/Day Years [...] on filedocumented in this encounter Care Teams Labor Specialist Relationship Specialty Start Date End Date Mk Dodge, OD [facility] 701 [facility] [address] [place] [address] PCP - Ophthalmology 04/21/08 Frw, None PCP - General Family Practice 08/25/10 03/23/17 Frw, None PCP - Obstetrics/Gynecology Family Practice 08/25/10 documented as of this encounter
--- OUTSIDE RECORDS SUMMARY | 2024-02-01 06:06 | XMS_ITS | Encounter Summary ---
Author Organization [place] Address [address] [place] [address] Care Team Providers Care Resistance Machine Welder Setter Name Role Phone Mk Dodge OD Unavailable Frw, None Primary Care Provider Unavailabl e Frw, None Unavailable Unavailable No Ref-Primary, Physician Primary Care Provider Encounter Details Date Type Department Care Team (Late st Contact Info) Description 02/23/2011 [facility] in [place] Inpatient Dept [address] [place] [address] Frw, Inpatient Provider Delivery Record Social [...] on filedocumented in this encounter Care Teams Resistance Machine Welder Setter Relationship Specialty Start Date End Date Mk Dodge, DUC [facility] [address] [place] [phone] PCP - Ophthalmology 04/21/08 Frw, None PCP - General Family Practice 08/25/10 03/23/17 Frw, None PCP - Obstetrics/Gynecology Family Practice 08/25/10 No Ref-Primary, Physician PCP - General 07/09/21 documented as of this encounter
--- OUTSIDE RECORDS SUMMARY | 2024-02-01 06:06 | XMS_ITS | Encounter Summary ---
Author Organization [place] Address [address] [place] [address]. [place] [address] Care Team Providers Care Biostatistics Professor Name Role Phone Mk Dodge OD Unavailable [phone] Frw, None Primary Care Provider Unavailabl e Frw, None Unavailable Unavailable Encounter Details Date Type Department Care Team (Late st Contact Info) Description 02/04/2011 9:22 AM CDT [facility] in [facility] [address] [place] [phone] Wen Jo MD [address] [place] [address] Social History Tobacco Use Types [...] on filedocumented in this encounter Care Teams Biostatistics Professor Relationship Specialty Start Date End Date Mk Dodge OD [facility] [address] [place] [address] [address] [place], [place] [phone] PCP - Ophthalmology 04/21/08 Frw, None PCP - General Family Practice 08/25/10 03/23/17 Frw, None PCP - Obstetrics/Gynecology Family Practice 08/25/10 documented as of this encounter
--- OUTSIDE RECORDS SUMMARY | 2024-02-01 06:06 | XMS_ITS | Encounter Summary ---
Author Organization [place] Address [address] [place] [address]. [place] [address] Care Team Providers Care Political Cartoonist Name Role Phone Mk Dodge OD Unavailable Frw, None Primary Care Provider Unavailabl e Frw, None Unavailable Unavailable Encounter Details Date Type Department Care Team (Late st Contact Info) Description 10/07/2011 10:26 AM T [facility] in [facility] [address] [place] [phone] Lina Rodriguez [facility] [address] [place] [address] Social History Tobacco Use Types Packs/Day Years [...] on filedocumented in this encounter Care Teams Political Cartoonist Relationship Specialty Start Date End Date Mk Dodge, OD [facility] [address] [place] [address] [address] [place] [address] PCP - Ophthalmology 9/29/08 Frw, None PCP - General Family Practice 08/25/10 03/23/17 Frw, None PCP - Obstetrics/Gynecology Family Practice 08/25/10 documented as of this encounter
--- OUTSIDE RECORDS SUMMARY | 2024-02-01 06:06 | XMS_ITS | Encounter Summary ---
Author Organization [place] Address [address] [place] [address]. [place] [address] Care Team Providers Care Inker Machine Name Role Phone Mk Dodge OD Unavailable [phone] Frw, None Primary Care Provider Unavailabl e Frw, None Unavailable Unavailable Encounter Details Date Type Department Care Team (Late st Contact Info) Description 02/23/2011 10:35 AM CDT [facility] in [facility] [address] [place] [phone] Wen Jo MD [address] [place] [address] Social History Tobacco Use Types [...] on filedocumented in this encounter Care Teams Inker Machine Relationship Specialty Start Date End Date Mk Dodge OD [facility] [address] [place] [address] [address] [place], [place] [phone] PCP - Ophthalmology 04/21/08 Frw, None PCP - General Family Practice 08/25/10 03/23/17 Frw, None PCP - Obstetrics/Gynecology Family Practice 08/25/10 documented as of this encounter
--- OUTSIDE RECORDS SUMMARY | 2024-02-01 06:06 | XMS_ITS | Encounter Summary ---
Author Organization [place] Address [address] [place] [address]. [place] [address] Care Team Providers Care Monorail Helper Name Role Phone Mk Dodge OD Unavailable [phone] Frw, None Primary Care Provider Unavailabl e Frw, None Unavailable Unavailable No Ref-Primary, Physician Primary Care Provider Reason for Visit * Reason Onset Date Comments Refill Request 01/19/2011 ambien Encounter Details Date Type Department Care Team (Late st Contact Info) Description 01/19/2011 Refill [facility] in [place] LAND DEVELOPMENT MANAGER [address] [place] [phone] eWn Jo MD [address] [place] [address] Refill Request (ambien) Social History Tobacco Use [...] on filedocumented in this encounter Care Teams Monorail Helper Relationship Specialty Start Date End Date Mk Dodge OD [facility] 701 [facility] [address] [place] [address] PCP - Ophthalmology 04/21/08 Frw, None PCP - General Family Practice 08/25/10 03/23/17 Frw, None PCP - Obstetrics/Gynecology Family Practice 08/25/10 No Ref-Primary, Physician PCP - General 07/09/21 documented as of this encounter
--- OUTSIDE RECORDS SUMMARY | 2024-02-01 06:07 | XMS_ITS | Encounter Summary ---
Author Organization [place] Address [address] [place] [address] Care Team Providers Care Perfect Binder Operator Name Role Phone Placido Velazco MD Primary Care Provider [phone] Jean Abel MD Unavailable Unavailable Mk Dodge OD Unavailable [phone] Frw, None Primary Care Provider Unavailabl e Frw, None Unavailable Unavailable No Ref-Primary, Physician Primary Care Provider Encounter Details Date Type Department Care Team (Late st Contact Info) Description 04/08/2010 [facility] Medical Advice [facility] in [place] BOTTOM BLEACHER [address] [place] [phone] Jean Abel MD Social History Tobacco Use [...] on filedocumented in this encounter Care Teams Perfect Binder Operator Relationship Specialty Start Date End Date Placido Velazco MD [facility] [address] [facility] [address] [place] [phone] PCP - General 08/15/00 08/24/10 Jean Abel MD PCP - Obstetrics/Gynecology 08/15/00 08/24/10 Mk Dodge OD [facility] [place] 701 [facility] [address] [place] [address] PCP - Ophthalmology 04/21/08 Frw, None PCP - General Family Practice 08/25/10 03/23/17 Frw, None PCP - Obstetrics/Gynecology Family Practice 08/25/10 No Ref-Primary, Physician PCP - General 07/09/21 documented as of this encounter
--- OUTSIDE RECORDS SUMMARY | 2024-02-01 06:07 | XMS_ITS | Encounter Summary ---
Author Organization [place] Address [address] [place] [address] Care Team Providers Care Immigration Inspector Name Role Phone Placido Velazco MD Primary Care Provider [phone] Jean Abel MD Unavailable Unavailable Mk Dodge OD Unavailable Frw, None Primary Care Provider Unavailabl e Frw, None Unavailable Unavailable No Ref-Primary, Physician Primary Care Provider Encounter Details Date Type Department Care Team (Late st Contact Info) Description 04/05/2010 MyC Medical Advice [facility] in [place] SLASHER RUNNER [address] [place] [phone] Jean Abel MD Social History Tobacco Use [...] on filedocumented in this encounter Care Teams Immigration Inspector Relationship Specialty Start Date End Date Placido Velazco MD [facility] [address] [facility] [address] [place] [phone] PCP - General 08/15/00 08/24/10 Jean Abel MD PCP - Obstetrics/Gynecology 08/15/00 08/24/10 Mk Dodge OD [facility] [place] 701 [facility] 95 [place] [address] PCP - Ophthalmology 04/21/08 Frw, None PCP - General Family Practice 08/25/10 03/23/17 Frw, None PCP - Obstetrics/Gynecology Family Practice 08/25/10 No Ref-Primary, Physician PCP - General 07/09/21 documented as of this encounter
--- OUTSIDE RECORDS SUMMARY | 2024-02-01 06:07 | XMS_ITS | Encounter Summary ---
Author Organization [facility] er Address [address] [place] [address] Care Team Providers Care Assembler [employer]pillar Spider Name Role Phone Jeanine De La Torre PA-C Primary Care Provider [phone] Reason for Visit * Reason Comments Med Refill Encounter Details Date Type Department Care Team (Late st Contact Info) Description 12/31/2018 Refill [place] [address] [place] [address] Madison Zamudio APRN, MORNING SHOW NEWSCAST PRODUCER [address] [place] [address] Acute non-recurrent sinusitis, unspecified location Social History Tobacco Use Types Packs/Day Years Used Date Smoking Tobacco: Never Smokeless Tobacco: Never PHQ-2 Answer Date Recorded PHQ-2 Score 0 12/25/2018 Sex and Gender Information Value Date Recorded Sex Assigned at Female 08/10/2022 7:13 AM STIFF NECK LOADER Gender Identity Female 08/10/2022 7:13 AM STIFF NECK LOADER Sexual Orientation Not on file documented as of this encounter Miscellaneous Notes * Telephone Encounter - Madison Zamudio APRN, MORNING SHOW NEWSCAST PRODUCER - 01/02/2019 12:01 PM CDT The patient [...] Last Rx azithromycin (ZITHROMAX) 250 MG tablet [[id number]] ??ENDED ?? Order Details Dose, Route, Frequency: [...] location documented in this encounter Care Teams Assembler [employer]pillar Spider Relationship Specialty Start Date End Date Jeanine De La Torre PA-C [address] [place] [address] PCP - General Family Medicine 04/04/23 documented as of this encounter
--- OUTSIDE RECORDS SUMMARY | 2024-02-01 06:07 | XMS_ITS | Continuity of Care Document ---
Author Name [facility] Organization [facility] Care Team Providers Care Director Ambulatory Name Role Phone [facility] Unavailable Unavailable Social History Combined list of available smoking, tobacco, and other social history from Department of Defense and Veterans Affairs facilities. Social History Type Response Date Comment Sourc e This section is an empty social history section. [facility]
--- OUTSIDE RECORDS SUMMARY | 2024-02-01 06:07 | XMS_ITS | Encounter Summary ---
Author Organization [place] Address [address] [place] [address]. [place] [address] Care Team Providers Care Geothermal Heat Pump Machinist Name Role Phone Mk Dodge OD Unavailable [phone] Frw, None Primary Care Provider Unavailabl e Frw, None Unavailable Unavailable Encounter Details Date Type Department Care Team (Late st Contact Info) Description 01/06/2011 11:00 AM T [facility] in [facility] [address] [place] [phone] Wen Jo MD [address] [place] [address] Social History Tobacco Use Types [...] on filedocumented in this encounter Care Teams Geothermal Heat Pump Machinist Relationship Specialty Start Date End Date Mk Dodge OD [facility] [address] [place] [address] [address] [place], [place] [phone] PCP - Ophthalmology 04/21/08 Frw, None PCP - General Family Practice 08/25/10 03/23/17 Frw, None PCP - Obstetrics/Gynecology Family Practice 08/25/10 documented as of this encounter
--- OUTSIDE RECORDS SUMMARY | 2024-02-01 06:07 | XMS_ITS | Encounter Summary ---
Author Organization [place] Address [address] [place] [address]. [place] [address] Care Team Providers Care Financial Administrator Name Role Phone Mk Dodge OD Unavailable Frw, None Primary Care Provider Unavailabl e Frw, None Unavailable Unavailable No Ref-Primary, Physician Primary Care Provider Encounter Details Date Type Department Care Team (Late st Contact Info) Description 08/27/2010 MyC Medical Advice [facility] in [place] INSTRUCTIONAL DESIGN MANAGER [address] [place] [address] Ailyn Leyva, INSTANT POTATO PROCESSING SUPERVISOR [facility] [address] [place] [address] Social History Tobacco Use Types [...] on filedocumented in this encounter Care Teams Financial Administrator Relationship Specialty Start Date End Date Mk Dodge, OD [facility] [address] [place] [address] PCP - Ophthalmology 04/21/08 Frw, None PCP - General Family Practice 08/25/10 03/23/17 Frw, None PCP - Obstetrics/Gynecology Family Practice 08/25/10 No Ref-Primary, Physician PCP - General 07/09/21 documented as of this encounter
--- OUTSIDE RECORDS SUMMARY | 2024-02-01 06:07 | XMS_ITS | Encounter Summary ---
Author Organization [place] Address [address] [place] [address] Care Team Providers Care Consultant Teacher Name Role Phone Placido Velazco MD Primary Care Provider [phone] Jean Abel MD Unavailable Unavailable Mk Dodge OD Unavailable [phone] Frw, None Primary Care Provider Unavailabl e Frw, None Unavailable Unavailable No Ref-Primary, Physician Primary Care Provider Encounter Details Date Type Department Care Team (Late st Contact Info) Description 02/25/2008 MyC Medical Advice [facility] in [place] BLOCK ENGRAVER [address] [place] [phone] Jean Abel MD Social History Tobacco Use [...] on filedocumented in this encounter Care Teams Consultant Teacher Relationship Specialty Start Date End Date Placido Velazco MD [facility] [address] [facility] [address] [place] [address] PCP - General 08/15/00 08/24/10 Jean Abel MD PCP - Obstetrics/Gynecology 08/15/00 08/24/10 Mk Dodge OD [facility] [place] 701 [facility] [address] [place] [address] PCP - Ophthalmology 04/21/08 Frw, None PCP - General Family Practice 08/25/10 03/23/17 Frw, None PCP - Obstetrics/Gynecology Family Practice 08/25/10 No Ref-Primary, Physician PCP - General 07/09/21 documented as of this encounter
--- OUTSIDE RECORDS SUMMARY | 2024-02-01 06:07 | XMS_ITS | Encounter Summary ---
Author Organization [place] Address [address] [place] [address] Care Team Providers Care Bottoming Machine Operator Name Role Phone Mk Dodge OD Unavailable Frw, None Primary Care Provider Unavailabl e Frw, None Unavailable Unavailable Encounter Details Date Type Department Care Team (Late st Contact Info) Description 01/14/2011 4:[address] [facility] in [facility] [address] [place] [phone] Pam [place] [address] Social History Tobacco Use Types Packs/Day Years [...] on filedocumented in this encounter Care Teams Bottoming Machine Operator Relationship Specialty Start Date End Date Mk Dodge, DUC [facility] [address] [place] [address] [address] [place] [address] PCP - Ophthalmology 04/21/08 Frw, None PCP - General Family Practice 08/25/10 03/23/17 Frw, None PCP - Obstetrics/Gynecology Family Practice 08/25/10 documented as of this encounter
--- OUTSIDE RECORDS SUMMARY | 2024-02-01 06:07 | XMS_ITS | Encounter Summary ---
Author Organization [place] Address [address] [place] [address] Care Team Providers Care On Air Announcer Name Role Phone Placido Velazco MD Primary Care Provider [phone] Jean Abel MD Unavailable Unavailable Mk Dodge OD Unavailable [phone] Encounter Details Date Type Department Care Team (Late st Contact Info) Description 07/22/2010 10:46 AM [facility] in [facility] [address] [place] [address] [place] [address] Social History Tobacco Use Types Packs/Day Years [...] on filedocumented in this encounter Care Teams On Air Announcer Relationship Specialty Start Date End Date Placido Velazco MD [facility] [address] [facility] [address] [place] [address] PCP - General 08/15/00 08/24/10 Jean Abel MD PCP - Obstetrics/Gynecology 08/15/00 Mk Dodge OD [facility] [place] [address] [facility] [address] [place] [address] PCP - Ophthalmology 04/21/08 documented as of this encounter
--- OUTSIDE RECORDS SUMMARY | 2024-02-01 06:07 | XMS_ITS | Clinical Summary ---
Author Organization [facility] Address [address] [place] [address] Care Team Providers Care Seed Pelleter Name Role Phone Elsewhere, Pcp Primary Care Provider Unavailabl e Source Comments Patient records contain information from all sites at [facility]. For routine questions regarding patient records, call [phone] during business hours, M-F 8:00 AM - 5:00 PM Central Time. Record requests for emergency care only can be directed to [phone] at any time.[facility] Allergies Active Allergy Reactions Criticality Noted Date [...] week 10/13/2022 How often do you attend [facility] or lutheran services? Patient declined 10/13/2022 Do you belong to any clubs o r organizations such as temple groups, unions, fraternal or athletic groups, or [...] Answer Date Recorded PHQ-2 Score 0 03/23/2020 [facility] - Occupational Stress Questionnaire Answer Date [...] place to sleep or slept in a long-term (including now)? No 10/13/2022 Nutrition Answer Date [...] Sex Assigned at Female 06/29/2017 5:49 AM INSTALLATION TECHNICIAN Gender Identity Female 06/29/2017 5:49 AM INSTALLATION TECHNICIAN Sexual Orientation Straight 06/29/2017 5: 49 AM INSTALLATION TECHNICIAN Last Filed Vital Signs Vital Sign Reading Time Taken Comments Blood Pressure 114/59 04/24/2023 7:46 AM CDT Pulse 70 04/24/2023 7:46 AM CDT Temperature 36.7 ??C (98 ??F) 08/28/2023 12:28 PM INSTALLATION TECHNICIAN Respiratory Rate 16 04/24/2023 7:46 AM CDT Oxygen Saturation 98% 03/23/2020 7:38 AM CDT Inhaled Oxygen Concentration - - Weight 55.8 kg (123 lb 0.3 oz) 04/24/2023 7:46 A M CDT Height 159 cm (5' 2.6) 08/29/2022 10:50 AM INSTALLATION TECHNICIAN Body Mass Index 22.07 08/29/2022 10:50 AM INSTALLATION TECHNICIAN Plan of Treatment Health Maintenance Due [...] 2) 2023 Depression Screening (Annual PHQ-2) 07/24/2023 Influenza Vaccine (#1) 2024 3, 04/19/2022, 05/04/2021, Additional history exists Hepatitis B Vaccines Completed 09/22/2005, 06/14/2005, 05/17/2005 Procedures Procedure Name Priority Date/Time Associated Diagnosis Comments COMPREHENSIVE METABOLIC PANEL, S/P STAT 03/22/2020 10:08 AM CDT LIPID PANEL, S Routine 11/29/2016 7:04 AM CDT BI BREAST SCREENING BILATERAL WITH TOMOSYNTHESIS Routine 11/27/2015 3:19 PM CDT PATHOLOGY VAN CDL DRIVER CYTOLOGY Routine 6 2:35 PM CDT from [...] CDT Lavon Alvarez P.A.-C. LAB BLOOD ADD-ON [facility] [address] [place] [address], [facility] CNFL [facility] [place] [address] * Lipid Panel (11/29/2016 7:04 AM CDT) [...] for FH and FDB is available through [employer]: FH/ADH Genetic Reflex Panel (test ADHP). Acquired (non-genetic) causes of markedly increased LDL cholesterol include cholestatic liver disease due to the presence of LpX. If a genetic form of hypercholesterolemia is suspected, family studies including biochemical testing for lipids (total cholesterol,triglycerides, LDL cholesterol and HDL cholesterol) are recommended. ??Please contact the laboratory at or the on-line test catalog at [employer] for information about how to order these tests or to speak with a genetic counselor. Further interpretation would require clinical information. Total Cholesterol/HDL Ratio 3 POWERCHART Blood 11/29/2016 7:04 AM CDT Thang Goyal P.A.-C. LAB BLOOD ADD-ON [facility] * BI Breast [...] - 10/19/2017 27-Nov-2015 15:19:00 Exam: Mammo Screen Jhontaan Tomosynthesis Indications: Mammogram screening breast CA ORIGINAL [...] M.D. IMG BI PROCEDUR ES * Pathology VAN CDL DRIVER Cytology (11/27/2015 2:35 PM CDT) 11/27/2015 2:35 PM CDT Narrative [facility] - 12/04/2015 10:39 AM CDT Pat: KINJAL TURCIOS ([id number]) Age/Sex: 40 ??F ??Loc: ? -00 (RWN ) CoPath ??SHLOMO: 11/27/15 14:35 ??REC: 11/27/15 14:35 ??PHYS: , Cytology ?ThinPrep cervical specimen Patient Name: KINJAL TURCIOS MR#: [id number] Submitting Physician: WESLY ??CHELO SALVADOR ??[id number] Specimen #[id number] Performing Lab: ??[place] [address] CLINICAL HISTORY: Last menstrual period: Status: Specimen [...] with Genotyping, PCR, ThinPrep, testing performed by [facility] HPV High Risk type 16, PCR [...] Wesly Henao M.D. LAB PAP COPATH ORDERABLES [facility] from Last 3 Months or Most Recently Relevant to Health Maintenance Care Teams Seed Pelleter Relationship Specialty Start Date End Date Elsewhere, Pcp PCP - General Internal Medicine 11/07/22
--- OUTSIDE RECORDS SUMMARY | 2024-02-01 06:07 | XMS_ITS | Referral Summary ---
Author Organization [facility] Address [address] [place] [address] Care Team Providers Care Pill Machine Operator Name Role Phone Elsewhere, Pcp Primary Care Provider Unavailabl e Source Comments Patient records contain information from all sites at [facility]. For routine questions regarding patient records, call [phone] during business hours, M-F 8:00 AM - 5:00 PM Central Time. Record requests for emergency care only can be directed to [phone] at any time.[facility] Allergies Active Allergy Reactions Criticality Noted [...] How often do you attend chur or restoration services? Patient declined 10/13/2022 Do you belong to any clubs o r organizations such as congregation groups, unions, fraternal or athletic groups, or [...] Answer Date Recorded PHQ-2 Score 0 03/23/2020 [facility] [place] [facility]at [facility] - Occupational Stress [...] place to sleep or slept in a correction (including now)? No 10/13/2022 Nutrition Answer Date [...] Sex Assigned at Female 06/29/2017 5:49 AM HEAD SULFIDE OPERATOR Gender Identity Female 06/29/2017 5:49 AM HEAD SULFIDE OPERATOR Sexual Orientation Straight 06/29/2017 5: 49 AM HEAD SULFIDE OPERATOR Last Filed Vital Signs Vital Sign Reading Time Taken Comments Blood Pressure 114/59 04/24/2023 7:46 AM CDT Pulse 70 04/24/2023 7:46 AM CDT Temperature 36.7 ??C (98 ??F) 08/28/2023 12:28 PM HEAD SULFIDE OPERATOR Respiratory Rate 16 04/24/2023 7:46 AM CDT Oxygen Saturation 98% 03/23/2020 7:38 AM CDT Inhaled Oxygen Concentration - - Weight 55.8 kg (123 lb 0.3 oz) 04/24/2023 7:46 A M CDT Height 159 cm (5' 2.6) 08/29/2022 10:50 AM HEAD SULFIDE OPERATOR Body Mass Index 22.07 08/29/2022 10:50 AM HEAD SULFIDE OPERATOR Plan of Treatment Not on file Procedures Procedure Name Priority Date/Time Associated Diagnosis Comments COMPREHENSIVE METABOLIC PANEL, S/P STAT 03/22/2020 10:08 AM CDT LIPID PANEL, S Routine 11/29/2016 7:04 AM CDT BI BREAST SCREENING BILATERAL WITH TOMOSYNTHESIS Routine 11/27/2015 3:19 PM CDT PATHOLOGY LUMBER HACKER CYTOLOGY Routine 6 2:35 PM CDT from [...] CDT Lavon Alvarez P.A.-C. LAB BLOOD ADD-ON [facility] [address] [place] [address], [facility] CNFL [facility] in [address] [address] * Lipid Panel (11/29/2016 7:04 AM CDT) [...] for FH and FDB is available through [employer]: FH/ADH Genetic Reflex Panel (test ADHP). Acquired (non-genetic) causes of markedly increased LDL cholesterol include cholestatic liver disease due to the presence of LpX. If a genetic form of hypercholesterolemia is suspected, family studies including biochemical testing for lipids (total cholesterol,triglycerides, LDL cholesterol and HDL cholesterol) are recommended. ??Please contact the laboratory at or the on-line test catalog at [employer] for information about how to order these [...] M.D. IMG BI PROCEDUR ES * Pathology LUMBER HACKER Cytology (11/27/2015 2:35 PM CDT) 11/27/2015 2:35 PM CDT Narrative [facility] - 12/04/2015 10:39 AM CDT Pat: KINJAL TURCIOS ([id number]) Age/Sex: 40 ??F ??Loc: ? -00 (RWN ) CoPath ??SHLOMO: 11/27/15 14:35 ??REC: 11/27/15 14:35 ??PHYS: , Cytology ?ThinPrep cervical specimen Patient Name: KINJAL TURCIOS MR#: [id number] Submitting Physician: WESLY ??CHELO SALVADOR ??[id number] Specimen #[id number] Performing Lab: ??[place] [address] CLINICAL HISTORY: Last menstrual period: Status: Specimen [...] with Genotyping, PCR, ThinPrep, testing performed by [facility] HPV High Risk type 16, [...] Wesly Henao M.D. LAB PAP COPATH ORDERABLES [facility] from Last 3 Months or Most Recently Relevant to Health Maintenance Care Teams Pill Machine Operator Relationship Specialty Start Date End Date Elsewhere, Pcp PCP - General Internal Medicine 11/07/22
--- OUTSIDE RECORDS SUMMARY | 2024-02-01 06:07 | XMS_ITS | Clinical Summary ---
Author Organization [facility] Address [address] [place] [address] Care Team Providers Care Tool Checker Name Role Phone Jeanine De La Torre PA-C Primary Care Provider [phone] Allergies Active Allergy Reactions Criticality Noted Date [...] Sex Assigned at Female 08/10/2022 7:13 AM HAND MOLD MAKER Gender Identity Female 08/10/2022 7:13 AM HAND MOLD MAKER Sexual Orientation Not on file Last Filed Vital Signs Vital Sign Reading Time Taken Comments Blood Pressure 114/82 08/09/2022 2:07 PM HAND MOLD MAKER Pulse 107 08/09/2022 2:07 PM HAND MOLD MAKER Temperature 36.7 ??C (98 ??F) 08/09/2022 2:07 PM HAND MOLD MAKER Respiratory Rate 16 08/09/2022 2:07 PM HAND MOLD MAKER Oxygen Saturation 98% 08/09/2022 2:07 PM HAND MOLD MAKER Inhaled Oxygen Concentration - - Weight 56.3 kg (124 lb 3.2 oz) 08/09/2022 2:07 P M HAND MOLD MAKER Height 158 cm (5' 2.21) 08/09/2022 2:07 PM HAND MOLD MAKER Body Mass Index 22.57 08/09/2022 2:07 PM HAND MOLD MAKER Plan of Treatment Health Maintenance Due Date Last Done Comments CT Colonography 1973 Colonoscopy 1973 Colorectal Cancer Screening 1973 FIT-DNA 1973 Pap Smear 1973 Sigmoidoscopy 1973 iFOBT 1973 Asthma Action Plan 1978 Asthma Control Test 1978 Pneumococcal Vaccine: Pediatrics (0 to 5 Years) and At-Risk Patients (6 to 64 Years) (1 of 2 - PCV) 1979 Mammogram 11/26/2016 11/27/2015 COVID-19 Vaccine (4 - 2022-24 season) 2023 07/09/2021, 12/11/2020, 11/13/2020 Zoster Vaccines (1 of 2) 2023 Influenza Vaccine (#1) 2024 , 04/19/2022, 05/05/2020, Additional history exists DTaP,Tdap,and Td Vaccines (6 - Td or Tdap) 11/09/2033 11/10/2023, 02/24/2011, 11/28/1974, Additional history exists HPV Vaccines Aged Out No longer eligi ble based on patient's age to complete this topic Procedures Procedure Name Priority Date/Time Associated Diagnosis Comments MAMMOGRAM BREAST SCREENING TOMOSYNTHESIS BILATERAL Routine 11/27/2015 3:19 PM CDT from Last 3 Months or Most Recently Relevant to Health Maintenance Care Teams Tool Checker Relationship Specialty Start Date End Date Jeanine De La Torre PA-C [address] [place] [address] PCP - General Family Medicine 04/04/23
--- OUTSIDE RECORDS SUMMARY | 2024-02-01 06:07 | XMS_ITS | Encounter Summary ---
Author Organization [facility] Address [address] [place] [address] Care Team Providers Care Kennel Aide Name Role Phone Placido Velazco MD Primary Care Provider [phone] Jean Abel MD Unavailable Unavailable Mk Dodge OD Unavailable [phone] Frw, None Primary Care Provider Unavailabl e Frw, None Unavailable Unavailable No Ref-Primary, Physician Primary Care Provider Encounter Details Date Type Department Care Team (Late st Contact Info) Description 02/29/2008 MyC Medical Advice [facility] in [place] ATHLETICS DIRECTOR [address] [place] [id number] Jean Abel MD Social History Tobacco Use [...] on filedocumented in this encounter Care Teams Kennel Aide Relationship Specialty Start Date End Date Placido Velazco MD [facility] [address] [facility] [address] [place] [address] PCP - General 08/15/00 08/24/10 Jean Abel MD PCP - Obstetrics/Gynecology 08/15/00 08/24/10 Mk Dodge OD [facility] [place] [address] [facility] [address] [place] [address] PCP - Ophthalmology 04/21/08 Frw, None PCP - General Family Practice 08/25/10 03/23/17 Frw, None PCP - Obstetrics/Gynecology Family Practice 08/25/10 No Ref-Primary, Physician PCP - General 07/09/21 documented as of this encounter
--- OUTSIDE RECORDS SUMMARY | 2024-02-01 06:07 | XMS_ITS | Data Portability ---
Author Organization [facility] ADVERTISING SALES CONSULTANT, [id number] Address [address] [place] [id number] Assessment Encounter Date Assessment Date Assessment LastModified by Organization Details LastModified Time 03/26/2020 03/26/2020 >50% of the visit was spent in consultation or coordination of care. Total time spent was ___30 minutes. Not available 03/27/2020 01:54:00 Plan of Treatment Reminders Order Date Submit Date Provider Last Modified By Organization Details Last Modified Time Details Appointments None recorded. Lab pap, LB 2019 020 [facility], [address] [place], [address], 0 09:24:08 unlisted lab - HPV high risk DNA with 16/18 genotyping 2019 020 [facility], [address] [place], [address], 0 09:24:08 Referral None recorded. Procedures None recorded. Surgeries None recorded. Imaging US, transvagin al 2019 020 [email or web address] [id number] [facility], [address] [facility], [address], [place], [address], 0 12:48:49 US, pelvis 2019 020 [id number] [facility]ey[facility] o[facility], [address] [facility], [address], [place], [address], 0 01:31:52 Medication Orders cyclobenza shannon 5 mg tablet 2019 020 INTERFACE [id number], [address], [place], [place], [id number], 0 12:59:05 Patient TargetsNo targets recorded. Patient Instructions Encounter Date Encounter Id Patient Instructions Last Modified By Organization Details Last Modified Time 03/26/2020 [id number] handling fee* [email or web address] Not available 0 03/26/2020 [...] uterus looks normal, no free fluid- if cage maker etiology to pain would likely be cyst [...] follow up and to further discuss DEANA [email or web address] Not available 03/27/2020 01:55:25 04/24/2020 [id number] Call if you usha re a referraly for physical therapy. Consider seeing Radha Love at [facility] or Wander Hardy at [place]. Not available 04/30/2020 16:41:57 I spent 25 [...] be better candidate for bulking injections vs [place] tissue support for incontinence which I discussed is not done in our practice. Also discussed definitive treatment for bleeding and pain would be consideration for hysterectomy. Follow-up as needed. Not available 04/30/2020 16:42:20 Reason for Referral None Reported. Results Created Date Observation Date Name Description Value Unit Range Abnormal Flag LastModifiedBy Organization Detail LastModifiedTime 03/26/2003/26/2020 HPV DNA, high- risk HPV high risk type 16 Negati ve for HPV type 16. negati ve for HPV type 16. Not Available [facility] [address] [place], [address], 04/02/2020 09:24:08 03/26/20 20 03/26/2020 HPV DNA, high- risk HPV high risk type 18 Negati ve for HPV type 18. negati ve for HPV type 18. Not Available [facility] [address] [place], [address], 04/02/2020 09:24:08 03/26/20 20 03/26/2020 HPV DNA, high- risk HPV other high risk types Negati ve for other high risk HPV types. negati ve for other high risk HPV types. Not Available [facility] [address] [place], [address], 04/02/2020 09:24:08 03/26/2003/26/2020 pap, LB case report See note Not Available [facility] [address] [place], [address], 04/02/2020 09:24:08 04/14/20 20 US, trans vagin al No observ ation record ed. [email or web address] [facility], [place], [address], 04/14/2020 13:26:52 Result Notes None recorded. Problems No Known Problems Procedures Surgical History Date Name Laterality Status Provider Name and Address Organization Details Recorded Time 7 Date of Last Mammogram completed Meliza lagunas [facility] ADVERTISING SALES CONSULTANT 03/26/2020 11:50:26 7 Date of Last Pap Smear completed Meliza Trae lagunas [facility] ADVERTISING SALES CONSULTANT 03/26/2020 11:50:56 cerclage of uterine cervix completed Meliza lagunas [facility] ADVERTISING SALES CONSULTANT 03/26/2020 11:57:22 wrist excision completed Meliza lagunas [facility] ADVERTISING SALES CONSULTANT 03/26/2020 11:57:49 Imaging Results Imaging Date Name Status LastModified by Organization Details LastModified Time 04/14/2020 US, transvaginal completed [email or web address], [place], [address], 04/14/2020 13:26:52 Procedure Notes None recorded. Medical Equipment None Reported. Allergies Allergen ID Allergen Name Allergen Category Reaction Reaction Severity Criticality Documentation Date Start Date Code Code System Note Provider Name and Address Organization Details Recorded Time 456327 adhesive environme nt,medica tion rash severe Not available 03/26/[address] [facility] ADVERTISING SALES CONSULTANT 0 11:48:20 Medications Name Sig Start Date [...] Address Organization Details Last Updated DateTime 0 [address]99.6 8 g 22.1 kg/m2 157.48 cm 65 /min 120 mm[Hg] 75 mm[Hg] Meliza Larkin [facility] ADVERTISING SALES CONSULTANT 0 11:47:54 Social History Question Answer Notes LastModified by Organizat ion Details LastModified Time Tobacco Smoking Status Former Smoker Meliza Trae null, [place] [facility] ADVERTISING SALES CONSULTANT 03/26/2020 11:55:49 What Is Your Level Of [...] Tobacco? 3 Information not available 03/26/2020 Sex: Unknown Functional Status Question Answer Note LastModified by [...] Encounter Closed Date Diagnosis/Indication Diagnosis SNOMED-CT Code [id number] WESLY ALLEN MD [id number] [address] [place] [address] 03/26/2020 11:30:48 03/26/2020 13:35:48 Screening for malignant neoplasm of cervix 318873489 Pain in pelvis 08395424 Abdominal pain 65073897 Female str ess incontinence 09769172 [id number] WESLY ALLEN MD [id number] [address] [place] [address] 03/26/2020 12:22:57 03/26/2020 12:48:49 Abdominal pain 16542365 [id number] WESLY ALLEN MD [id number] [address] [place] [address] 04/27/2020 12:59:15 05/04/2020 09:49:13 Perimenopausal state [id number] 4 Female str ess incontinence 08066025 Health Concerns Section Related Observation LastModified by Organization Detai ls LastModified Time None Recorded Concern Status LastModified by Organization Details LastModified Time None Recorded Advance Directives Directive None Recorded Payers Encounter Date Sequence Insurance Name Policy Number Policy Christina Covered Member ID Christina Member ID Guarantor Name 03/26/2020 1 [facility] Kinjal Rodrigues [id number] Kinjal Rodrigues 03/26/2020 1 [facility] Kinjal Rodrigues [id number] Kinjal Rodrigues 04/24/2020 1 [facility] Kinjal Rodrigues [id number] Kinjal Rodirgues Notes Date Note Type Note Provider Name [...] Walks for exercise 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 employee here, [place] [address], [place], [address], [facility] [employer] ADVERTISING SALES CONSULTANT 03/27/2020 01:56:09 04/24/2020 text/html HPI Notes: siri gay presents for follow-up limited intake as power outtage in clinic patient seen in room with window/natural light physical exam deferred referred here by her neigbor who used to work here patient lives almost [place] hour away- closer to [place] was seen in March after having a couple of weeks of a fairly acute onset of pelvic pain, work up essentially normal CT and usn- suspect possible ovarian cyst vs non-cage maker. Patient endorses history of needing a cerclage [...] [place] quality [place] [address] [address], [place], [address], [facility] Poll Everywhere ADVERTISING SALES CONSULTANT 04/30/2020 16:42:33 OBGyn Episode Ob Episode Information Episode Created Date Number of Fetuses Patient Bloodtype Patient rh Status Prepregnancy Weight lbs Domestic Partner Domestic Partner Phone Father Name Designated Broker Status 03/26/20 20 1 CLOSED Fetus Data [...] Domestic Partner Domestic Partner Phone Father Name Designated Broker Status 03/26/20 20 1 CLOSED Fetus Data [...] Domestic Partner Domestic Partner Phone Father Name Designated Broker Status 03/26/20 20 1 CLOSED Fetus Data First Name Last Name Admitted to NICU Weight (g) Sex Living Outcome Pediatric Complications Fetus ID Race Codes Race Delivery Type 3430.06 2704 M Full Term 7082 Alber Calculation Initial Alber Date Initial Exam Date Initial Exam Provider Initial Ultrasound Date Last Menstrual Period Date Ultra Sound Weeks Gestation 0 Eighteen To Twenty Week Laber Update Ultra Sound Date Fundal Height At [...] Complications Tubal Sterilization Discharge Date Comments 1 [facility]- idural 38 Discharge Information Feeding Method Contraceptive Method Maternal HG B and HCT Levels
--- OUTSIDE RECORDS SUMMARY | 2024-02-01 06:07 | XMS_ITS | Encounter Summary ---
Author Organization [facility] Address [address] [place] [address] Care Team Providers Care Manager Union Name Role Phone Placido Velazco MD Primary Care Provider [phone] Jean Abel MD Unavailable Unavailable Mk Dodge OD Unavailable Frw, None Primary Care Provider Unavailabl e Frw, None Unavailable Unavailable No Ref-Primary, Physician Primary Care Provider Encounter Details Date Type Department Care Team (Late st Contact Info) Description 02/13/2009 MyC Medical Advice [facility] in [place] SHELTER ADVOCATE [address] [place] [phone] Jean Abel MD Social History Tobacco Use [...] on filedocumented in this encounter Care Teams Manager Union Relationship Specialty Start Date End Date Placido Velazco MD [facility] [address] [place] [id number] PCP - General 08/15/00 08/24/10 Jean Abel MD PCP - Obstetrics/Gynecology 08/15/00 08/24/10 Mk Dodge OD [facility] [place] [address] [facility] [address] [place] [address] PCP - Ophthalmology 04/21/08 Frw, None PCP - General Family Practice 08/25/10 03/23/17 Frw, None PCP - Obstetrics/Gynecology Family Practice 08/25/10 No Ref-Primary, Physician PCP - General 07/09/21 documented as of this encounter
--- OUTSIDE RECORDS SUMMARY | 2024-02-01 06:07 | XMS_ITS ---
Author Organization [facility] Address [address] [place] [address] Care Team Providers Care Ginger Farmer Name Role Phone Unavailable Unavailable Unavailable Surgery Details Not on file Complications Check Surgery Details section. Procedure Estimated Blood Loss Check Surgery Details section. Procedure Findings Check Surgery Details section. Procedure Specimens Taken Check Surgery Details section.
[2024-02-01 06:20] LABS: Ur HCG Qualitative* Negative (Negative)
[2024-02-01] MEDS: LACTATED RINGERS 1000 ML 1,000 ML 100 ML IV ×2 (06:35→08:08)
[2024-02-01] MEDS: SODIUM CHLORIDE 0.9 % (FLUSH) 10 ML SYRINGE IVF (06:35)
--- NOTE | 2024-02-01 07:12 | W.PM.H&PU ---
History & Physical Update History & Physical Update H&P Reviewed and patient assessed: No changes noted
--- NOTE | 2024-02-01 07:15 | P.GYNPRC_ITS ---
Procedure Note Date of procedure: 02/01/24 Will [facility] bill your pro fee for this procedure?: Yes Procedure Description: Preoperative diagnosis: Perimenopausal menorrhagia, stress urinary incontinence Postoperative diagnosis: Stage 2 uterine prolapse, otherwise as above Procedure: Krista retropubic midurethral sling, cystoscopy, hysteroscopy with visual dilation and curettage, insertion of Mirena intrauterine device Surgeon: Romelia Dodge MD Anesthesia: Spinal, IV sedation IV fluids: 1000 mL crystalloid EBL: 20 mL Findings: 1. Upon cystoscopy, performed after placement of bilateral arms of the retropubic sling, the bladder mucosa was normal appearance and there was no perforation of the bladder noted. 2. Upon initial pelvic exam under anesthesia, uterus was noted to be retroverted and palpably normal in size. There were no palpable adnexal masses. There was descent of the uterine cervix to approximately 2 cm above the hymeneal ring. 3. Upon hysteroscopy, there was diffusely shaggy endometrium with some adherent blood clot noted, consistent with menstrual endometrium in appearance. The uterine cavity was normal in shape, and bilateral tubal ostia were normal in appearance. Uterus sounded to 7 cm. Complications: none Procedure in detail: Patient was taken to the operating room with IV running. She was given 2 g of cefazolin in preoperative prophylaxis. She was positioned in dorsal lithotomy position with her legs fully supported in Yellofin stirrups. Monitored anesthesia care was administered. She was prepped and draped in the usual sterile fashion. Adan catheter was inserted. The mons was marked in the midline with a marker, extending from just above the clitoral shaver in the midline to just above the pubic symphysis. A shanita was made approximately 2 cm just to the right and to the left of the midline, just over the pubic bone. 30 mL of saline was injected into the retropubic space just behind the pubic bone bilaterally. A weighted speculum was placed in the vagina. The anterior vaginal wall was grasped in the midline 1 cm beneath the urethral meatus with an Allis clamp, and a 2nd Allis clamp was placed at the urethrovesical junction. The intervening anterior vaginal wall was infiltrated with Marcaine with dilute epinephrine, carrying this infiltration to the pubic bone bilaterally. A 1.5 cm incision was made in the anterior vaginal wall, and Metzenbaum scissors were used to dissect the subepithelial tunnel from that incision to the pubic bone, both to the right and the left of the urethra. The Adan catheter was removed. A rigid catheter guide was placed inside a 16 Nepali catheter, this was inserted into the bladder. Attention was first turned to placement of the left trocar. The trocar was placed within the blue plastic sheath. The trocar tip was inserted through the vaginal subepithelial tunnel on the patient's left side, and slowly guided upwards just behind the posterior aspect of the pubic bone, until the tip of the trocar tented up the skin just above the pubic bone. A stab incision was made at this site and the trocar was brought through this. The bladder was deviated to the patient's right with the rigid catheter guide during this time. The plastic sheath was disconnected from the trocar, and the tip was grasped with hemostat. The trocar was then placed within the blue plastic sheath at the other end of the mesh. The trocar tip was inserted through the vaginal subepithelial tunnel on the patient's right side, and slowly guided upward just behind the posterior aspect of the pubic bone, until the tip of the trocar tented up the skin just superior to the pubic bone. A stab incision was made in the skin just above this, and the trocar was guided through the stab incision on the patient's right side. The bladder was deviated to the patient's left with the rigid catheter guide during this time. The plastic sheath was again disconnected from the trocar, and the tip was grasped with a hemostat. Cystoscopy was then performed, revealing no injury to the bladder mucosa and the plastic sheaths were found to be freely movable outside the bladder dome. Adan catheter was again inserted. The blue plastic sheaths were pulled through the stab incisions just above the pubic bone, and the mesh was tensioned over a #9 Hegar dilator. The mesh was trimmed to beneath the skin on her abdomen, and the sites were closed with surgical glue. The vaginal incision was closed with a running, locked stitch of 2 0 Vicryl. Adan catheter was reinserted. Cervix visualized and grasped along the anterior lip with an Allis clamp. Cervix was serially dilated to accommodate the TRUCLEAR hysteroscope. This was assembled with saline inflow and outflow in place. The line was flushed of bubbles. The hysteroscope was advanced through the cervix into the endometrial cavity for the above noted findings. The tissue morcellator was then inserted through the operating channel. Window lock was performed. Under direct visualization, the endometrial cavity was circumferentially curetted with the tissue morcellator. The hysteroscope and morcellator were then removed from the uterus. Uterus sounds to 7 cm. The Mirena IUD is loaded into the insertion tube, inserted to the sounded depth, and the IUD is deployed. Insertion tube was removed. Strings are trimmed to 3 cm. Allis clamp was removed from the anterior lip the cervix. Patient tolerated procedure well. She was taken to recovery area in stable condition.
[2024-02-01] MEDS: CEFAZOLIN 2 GM INJ IVP (07:40)
[2024-02-01] MEDS: BUPIVACAINE 0.25 %/EPI 1:200K 30 ml INJECTION (08:15)
--- NOTE | 2024-02-01 08:50 | W.ANESCHARGE ---
Anesthesia Charges Start Date/Time Anesthesia Start Date: 02/01/24 Anesthesia Start Time: 07:22 Stop Date/Time Anesthesia Stop Date: 02/01/24 Anesthesia Stop Time: 09:03
--- NOTE | 2024-02-01 09:03 | W.ANESCHARGE ---
Anesthesia Charges Start Date/Time Anesthesia Start Date: 02/01/24 Anesthesia Start Time: 07:22 Stop Date/Time Anesthesia Stop Date: 02/01/24 Anesthesia Stop Time: 09:03
[2024-02-01] MEDS: HYDROCODONE/ACETAMIN 7.5-325 TABLET 1 TAB PO (10:02)
--- NOTE | 2024-02-01 10:39 | SUR.PHASEII ---
Instilled 300cc of normal saline into bladder, 400cc urine out put after removal of catheter.
[2024-02-01 12:06] LABS: Hemoglobin* 12.4 gm/dL (12.0-16.0)
== END 2024-02-01 11:00 | disposition home or self-care (01) ==
LOC: OR 06:04
PROVIDERS: PCP Obstetrics & Gynecology; Visit Provider Obstetrics & Gynecology
PROC: 0UDB8ZZ Extraction of Endometrium, Via Natural or Artificial Opening Endoscopic (ICD-10-PCS; CPT 58558; principal; 2024-02-01 07:15)
PROC: (CPT 57288; 2024-02-01 07:15)
DX: N92.4 Excessive bleeding in the premenopausal period (principal); N39.3 Stress incontinence (female) (male); N81.2 Incomplete uterovaginal prolapse
CPT/HCPCS: 57288; 58558; 58300; 00860; 36415; 81025; 85018; 86850; 86900; 86901; 88305; A4344; A9270; C1771; J0690; J1100; J1885; J2250; J2704; J3010; J3490; J7120; J7298

== ENCOUNTER 2024-02-16 16:13 | Outpatient (CLI) | payer BC, SELFPAY ==
--- OUTSIDE RECORDS SUMMARY | 2024-02-16 16:17 | XMS_ITS | Encounter Summary ---
Author Organization [facility] Address [address] [place] [address] Care Team Providers Care Supervisor Vendor Quality Name Role Phone Mk Dodge OD Unavailable [phone] Frw, None Primary Care Provider Unavailabl e Frw, None Unavailable Unavailable Encounter Details Date Type Department Care Team (Late st Contact Info) Description 01/14/2011 4:24 PM CDT [facility] in [facility] [address] [place] [phone] Pam [place] [address] Social History Tobacco Use Types Packs/Day Years [...] on filedocumented in this encounter Care Teams Supervisor Vendor Quality Relationship Specialty Start Date End Date Mk Dodge, DUC [facility] [address] [place] [address] [address] [place] [address] PCP - Ophthalmology 04/21/08 Frw, None PCP - General Family Practice 08/25/10 03/23/17 Frw, None PCP - Obstetrics/Gynecology Family Practice 08/25/10 documented as of this encounter
--- OUTSIDE RECORDS SUMMARY | 2024-02-16 16:17 | XMS_ITS | Encounter Summary ---
Author Organization [facility] Address [address] [place] [address]. [place] [address] Care Team Providers Care Fishery Biologist Name Role Phone Mk Dodge OD Unavailable [phone] Frw, None Primary Care Provider Unavailabl e Frw, None Unavailable Unavailable Encounter Details Date Type Department Care Team (Late st Contact Info) Description 01/06/2011 11:00 AM T [facility] in [facility] [address] [place] [phone] Wen Jo MD [address] [place] [address] Social History Tobacco Use Types [...] on filedocumented in this encounter Care Teams Fishery Biologist Relationship Specialty Start Date End Date Mk Dodge OD [facility] [address] [place] [address] [address] [place], [place] [phone] PCP - Ophthalmology 04/21/08 Frw, None PCP - General Family Practice 08/25/10 03/23/17 Frw, None PCP - Obstetrics/Gynecology Family Practice 08/25/10 documented as of this encounter
--- OUTSIDE RECORDS SUMMARY | 2024-02-16 16:17 | XMS_ITS | Referral Summary ---
Author Organization [place] Address [facility] [place] [address] Care Team Providers Care Preschool Assistant Director Name Role Phone Mk Dodge OD Unavailable [phone] Frw, None Unavailable Unavailable No Ref-Primary, Physician Primary Care Provider Allergies Active Allergy Reactions Criticality Noted Date Comments No Known Drug Allergy 02/19/2008 Seasonal Allergies 11/01/2004 Medications Medication Sig Dispensed Refills Start Date End Date Status fluticasone (FLONASE) 50 MCG/ACT nasal sprayIndications:Ac nahid maxillary sinusitis [place] 1-2 sprays into both nostrils daily. 1 [...] Comments Blood Pressure 122/61 07/12/2013 6:36 PM MEDICAL APPLIANCE MAKER Pulse 81 07/12/2013 6:36 PM MEDICAL APPLIANCE MAKER Temperature 37 ??C (98.6 ??F) 07/12/2013 6:36 PM MEDICAL APPLIANCE MAKER Respiratory Rate 16 10/26/2005 11:15 AM CDT Oxygen Saturation 96% 07/12/2013 6:36 PM MEDICAL APPLIANCE MAKER Inhaled Oxygen Concentration - - Weight 48.1 kg (106 lb) 06/15/2012 1:25 PM MEDICAL APPLIANCE MAKER Height 158.8 cm (5' 2.5) 10/03/2011 10:17 AM CD T Body Mass Index 19.08 10/03/2011 10:17 AM CDT Plan of Treatment Not on file Procedures Procedure Name Priority Date/Time Associated Diagnosis Comments BASIC METABOLIC PANEL Routine 10/03/2011 10:54 AM CDT Left sided abdominal pain Left flank pain Fever, unspecified Nausea and vomiting Dizziness HIV 1 AND 2 ANTIBODY (QUEST) Routine 08/25/2010 9:28 AM MEDICAL APPLIANCE MAKER Supervision of other normal HCL LIPID PANEL, REFLEX TO DIRECT LDL Routine 04/05/2010 10:29 AM CDT Lipid Screening HCL PAP THIN LAYER SCREEN Routine 04/05/2010 12:00 AM CDT Screening for Malignant Neoplasm of the Cervix from Last 3 Months or Most Recently Relevant to Health Maintenance Results * (ABNORMAL) Basic metabolic panel (10/03/2011 10:54 AM CDT) Sodium 139 133 - 144 mmol/L [facility] Potassium 3.6 3.4 - 5.3 mmol/L [facility] Chloride 101 94 - 109 mmol/L [facility] Carbon Dioxide 26 20 - 32 mmol/L [facility] Anion Gap 12 6 - 17 mmol/L [facility] Glucose 137(H) 60 - 99 mg/dL [facility] Urea Nitrogen 11 5 - 24 mg/dL [facility] Creatinine 0.82 0.52 - 1.04 mg/dL [facility] GFR Estimate 78 >60 mL/min/1.7 m2 [facility] GFR Estimate If Black >90 >60 mL/min/1.7 m2 [facility] Calcium 8.4(L) 8.5 - 10.4 mg/dL [facility] Blood specimen (specimen) 10/03/2011 10:54 AM CDT 10/03/2011 10:59 AM CDT Lina Rodriguez PA-C LAB - BLOOD OR DERABLES Performing Organization Address City/[facility]/ZIP Co de Phone Number [facility] [place] [address] * HIV 1 and 2 Antibody (08/25/2010 9:28 AM MEDICAL APPLIANCE MAKER) HIV 1&2 Antibody Negative NEG [facility] Blood specimen (specimen) 08/25/2010 9:28 AM MEDICAL APPLIANCE MAKER 08/25/2010 9:29 AM MEDICAL APPLIANCE MAKER Ailyn Leyva NP LAB - BLOOD ORDERABL ES Performing Organization Address City/[facility]/ZIP Co de Phone Number [facility] * LIPID PANEL, REFLEX TO DIRECT LDL (04/05/2010 10:29 AM CDT) Cholesterol 176 0 - 200 mg/dL [facility] Comment: LDL Cholesterol is the primary guide to therapy. The NCEP recommends further evaluation of: patients with cholesterol <200 mg/dL if additional risk factors are present, cholesterol >240 mg/dL, triglycerides >150 mg/dL, or HDL <40 mg/dL. Triglycerides 53 0 - 150 mg/dL [facility] Comment:Fasting specimen HDL Cholesterol 57 50 - 110 mg/dL [facility] LDL Cholesterol Calculated 108 0 - 129 mg/dL [facility] Comment: LDL Cholesterol is the primary guide to therapy: LDL-cholesterol goal in high risk patients is <100 mg/dL and in very high risk patients is <70 mg/dL. VLDL-Cholesterol 11 0 - 30 mg/dL [facility] Cholesterol/HDL Ratio 3.1 0.0 - 5.0 [facility] 04/05/2010 10:2 9 AM CDT 04/05/2010 10:30 AM CDT Jean Springer MD LABORATORY [facility] [place] [address] * A THIN LAYER PAP SCREEN [G0123.000] (04/05/2010 12:00 AM CDT) PAP NIL COPATH Copath Report Patient Name: KIJNAL TURCIOS MR#: [id number] Specimen #: [id number] Collected: 04/05/2010 Received: 04/06/2010 Reported: 04/07/2010 15:06 [...] Bolden(ASCP) Processed and screened at [facility], [facility] CLINICAL HISTORY: LMP: NO LMP RECORDED Previous normal pap: NIL, 02/10/09 Previous normal pap: NIL, 04/17/06 Previous normal pap: NIL, 12/07/04, Papanicolaou Test Limitations: ??Cervical cytology is a screening test with limited sensitivity; regular screening is critical for cancer prevention; Pap tests are primarily effective for the diagnosis/preventi on of squamous cell carcinoma, not adenocarcinomas or other cancers. TESTING LAB LOCATION: [address] [place] [address] COLLECTION SITE: Client: ??[facility] [employer] [facility] Location: FRWOB (W) COPATH 04/05/2010 04/06/2010 10: 30 AM CDT Jean Springer MD LABORATORY [facility] from Last 3 Months or Most Recently Relevant to Health Maintenance Care Teams Preschool Assistant Director Relationship Specialty Start Date End Date Mk Dodge, DUC [facility] [address] [facility] [address] [place] [address] PCP - Ophthalmology 04/21/08 Frw, None PCP - Obstetrics/Gynecology Family Practice 08/25/10 No Ref-Primary, Physician PCP - General 07/09/21
--- OUTSIDE RECORDS SUMMARY | 2024-02-16 16:17 | XMS_ITS | Encounter Summary ---
Author Organization [place] Address [facility] [place] [address] Care Team Providers Care Bindery Supervisor Name Role Phone Mk Dodge OD Unavailable Frw, None Primary Care Provider Unavailabl e Frw, None Unavailable Unavailable Encounter Details Date Type Department Care Team (Late st Contact Info) Description 01/15/2011 6:50 PM CDT [facility] in [facility] [address] [place] [phone] Claudia Meyers MD [facility] [address] [place] [address] Social History Tobacco Use Types Packs/Day Years [...] on filedocumented in this encounter Care Teams Bindery Supervisor Relationship Specialty Start Date End Date Mk Dodge, OD [facility] [address] [facility] [address] [place] [address] PCP - Ophthalmology 04/21/08 Frw, None PCP - General Family Practice 08/25/10 03/23/17 Frw, None PCP - Obstetrics/Gynecology Family Practice 08/25/10 documented as of this encounter
--- OUTSIDE RECORDS SUMMARY | 2024-02-16 16:17 | XMS_ITS | Encounter Summary ---
Author Organization [facility] Address [address] [place] [address]. [place] [address] Care Team Providers Care Microbiology Instructor Name Role Phone Mk Dodge OD Unavailable [phone] Frw, None Primary Care Provider Unavailabl e Frw, None Unavailable Unavailable Encounter Details Date Type Department Care Team (Late st Contact Info) Description 02/23/2011 10:35 AM CDT [facility] in [facility] [address] [place] [phone] Wen Jo MD [address] [place] [address] Social History Tobacco Use Types [...] on filedocumented in this encounter Care Teams Microbiology Instructor Relationship Specialty Start Date End Date Mk Dodge OD [facility] [address] [place] [address] [address] [place], [place] [phone] PCP - Ophthalmology 04/21/08 Frw, None PCP - General Family Practice 08/25/10 03/23/17 Frw, None PCP - Obstetrics/Gynecology Family Practice 08/25/10 documented as of this encounter
--- OUTSIDE RECORDS SUMMARY | 2024-02-16 16:17 | XMS_ITS | Encounter Summary ---
Author Organization [facility] Address [address] [place] [address]. [place] [address] Care Team Providers Care Automatic Glove Former Name Role Phone Mk Dodge OD Unavailable Frw, None Primary Care Provider Unavailabl e Frw, None Unavailable Unavailable Encounter Details Date Type Department Care Team (Late st Contact Info) Description 02/10/2011 1:00 PM CDT [facility] in [facility] [address] [place] [phone] Wen Jo MD [address] [place] [address] Social History Tobacco Use Types [...] on filedocumented in this encounter Care Teams Automatic Glove Former Relationship Specialty Start Date End Date Mk Dodge, DUC [facility] [address] [place] [address] [address] [place], [place] [phone] PCP - Ophthalmology 04/21/08 Frw, None PCP - General Family Practice 08/25/10 03/23/17 Frw, None PCP - Obstetrics/Gynecology Family Practice 08/25/10 documented as of this encounter
--- OUTSIDE RECORDS SUMMARY | 2024-02-16 16:17 | XMS_ITS | Clinical Summary ---
Author Organization [place] Address [facility] [place] [address] Care Team Providers Care Chief Engineer Waterworks Name Role Phone Mk Dodge OD Unavailable [phone] Frw, None Unavailable Unavailable No Ref-Primary, Physician Primary Care Provider Allergies Active Allergy Reactions Criticality Noted Date Comments No Known Drug Allergy 02/19/2008 Seasonal Allergies 11/01/2004 Medications Medication Sig Dispensed Refills Start Date End Date Status fluticasone (FLONASE) 50 MCG/ACT nasal sprayIndications:Ac nahid maxillary sinusitis [place] 1-2 sprays into both nostrils daily. 1 [...] Comments Blood Pressure 122/61 07/12/2013 6:36 PM CABLE TV INSTALLER Pulse 81 07/12/2013 6:36 PM CABLE TV INSTALLER Temperature 37 ??C (98.6 ??F) 07/12/2013 6:36 PM CABLE TV INSTALLER Respiratory Rate 16 10/26/2005 11:15 AM CDT Oxygen Saturation 96% 07/12/2013 6:36 PM CABLE TV INSTALLER Inhaled Oxygen Concentration - - Weight 48.1 kg (106 lb) 06/15/2012 1:25 PM CABLE TV INSTALLER Height 158.8 cm (5' 2.5) 10/03/2011 10:17 [...] 2 ANTIBODY (QUEST) Routine 08/25/2010 9:28 AM CABLE TV INSTALLER Supervision of other normal HCL LIPID PANEL, REFLEX TO DIRECT LDL Routine 04/05/2010 10:29 AM CDT Lipid Screening HCL PAP THIN LAYER SCREEN Routine 04/05/2010 12:00 AM CDT Screening for Malignant Neoplasm of the Cervix from Last 3 Months or Most Recently Relevant to Health Maintenance Results * (ABNORMAL) Basic metabolic panel (10/03/2011 10:54 AM CDT) Sodium 139 133 - 144 mmol/L [facility] Potassium 3.6 3.4 - 5.3 mmol/L [facility] Chloride 101 94 - 109 mmol/L [facility] Carbon Dioxide 26 20 - 32 mmol/L [facility] Anion Gap 12 6 - 17 mmol/L [facility] Glucose 137(H) 60 - 99 mg/dL [facility] Urea Nitrogen 11 5 - 24 mg/dL [facility] Creatinine 0.82 0.52 - 1.04 mg/dL [facility] GFR Estimate 78 >60 mL/min/1.7 m2 [facility] GFR Estimate If Black >90 >60 mL/min/1.7 m2 [facility] Calcium 8.4(L) 8.5 - 10.4 mg/dL [facility] Blood specimen (specimen) 10/03/2011 10:54 AM CDT 10/03/2011 10:59 AM CDT Lina Rodriguez PA-C LAB - BLOOD OR DERABLES [facility] [address] * HIV 1 and 2 Antibody (08/25/2010 9:28 AM CABLE TV INSTALLER) HIV 1&2 Antibody Negative NEG [facility] Blood specimen (specimen) 08/25/2010 9:28 AM CABLE TV INSTALLER 08/25/2010 9:29 AM CABLE TV INSTALLER Ailyn Leyva NP LAB - BLOOD ORDERABL ES [facility] * LIPID PANEL, REFLEX TO DIRECT LDL (04/05/2010 10:29 AM CDT) Cholesterol 176 0 - 200 mg/dL [facility] Comment: LDL Cholesterol is the primary guide to therapy. The NCEP recommends further evaluation of: patients with cholesterol <200 mg/dL if additional risk factors are present, cholesterol >240 mg/dL, triglycerides >150 mg/dL, or HDL <40 mg/dL. Triglycerides 53 0 - 150 mg/dL [facility] Comment:Fasting specimen HDL Cholesterol 57 50 - 110 mg/dL [facility] LDL Cholesterol Calculated 108 0 - 129 mg/dL [facility] Comment: LDL Cholesterol is the primary guide to therapy: LDL-cholesterol goal in high risk patients is <100 mg/dL and in very high risk patients is <70 mg/dL. VLDL-Cholesterol 11 0 - 30 mg/dL [facility] Cholesterol/HDL Ratio 3.1 0.0 - 5.0 [facility] 04/05/2010 10:2 9 AM CDT 04/05/2010 10:30 AM CDT Jean Springer MD LABORATORY [facility] [address] * A THIN LAYER PAP SCREEN [G0123.000] (04/05/2010 12:00 AM CDT) PAP PETEY Begum Report Patient Name: KINJAL TURCIOS MR#: [id number] Specimen #: [id number] Collected: 04/05/2010 Received: 04/06/2010 Reported: 04/07/2010 15:06 Ordering Phy(s): JEAN SPRINGER SPECIMEN/STAIN PROCESS: Pap thin layer prep screening (Sure[facility]) ? Pap-Cyto x 1, Reflex HPV x 1 SOURCE: Cervical, endocervical Pap thin layer prep screening (Sure[facility]) SPECIMEN ADEQUACY: Satisfactory for evaluation. -Transformation zone component present. CYTOLOGIC INTERPRETATION: Negative for Intraepithelial Lesion or Malignancy Electronically signed out by: ABHIJIT Bolden(ASCP) Processed and screened at [facility], [facility] CLINICAL HISTORY: LMP: NO LMP [...] or other cancers. TESTING LAB LOCATION: [address] [place] [id number] COLLECTION SITE: Client: ??[facility] Location: FRWOB (W) COPATH 04/05/2010 04/06/2010 10: 30 AM CDT Jean Springer MD LABORATORY [facility] from Last 3 Months or Most Recently Relevant to Health Maintenance Care Teams Chief Engineer Waterworks Relationship Specialty Start Date End Date Mk Dodge OD [address] [address] PCP - Ophthalmology 04/21/08 Frw, None PCP - Obstetrics/Gynecology Family Practice 08/25/10 No Ref-Primary, Physician PCP - General 07/09/21
--- OUTSIDE RECORDS SUMMARY | 2024-02-16 16:17 | XMS_ITS | Encounter Summary ---
Author Organization [place] Address [address] [place] [address]. [place] [address] Care Team Providers Care Contract Preparer Name Role Phone Mk Dodge OD Unavailable [phone] Frw, None Primary Care Provider Unavailabl e Frw, None Unavailable Unavailable Encounter Details Date Type Department Care Team (Late st Contact Info) Description 02/04/2011 9:22 AM CDT [facility] in [facility] [address] [place] [phone] Wen Jo MD [address] [place] [address] Social History Tobacco Use Types [...] on filedocumented in this encounter Care Teams Contract Preparer Relationship Specialty Start Date End Date Mk Dodge OD [facility] [address] [place] [address] [address] [place], [place] [phone] PCP - Ophthalmology 04/21/08 Frw, None PCP - General Family Practice 08/25/10 03/23/17 Frw, None PCP - Obstetrics/Gynecology Family Practice 08/25/10 documented as of this encounter
--- OUTSIDE RECORDS SUMMARY | 2024-02-16 16:17 | XMS_ITS | Encounter Summary ---
Author Organization [place] Address [address] [place] [address] Care Team Providers Care Marking Machine Tender Name Role Phone Placido Velazco MD Primary Care Provider [phone] Jean Abel MD Unavailable Unavailable Mk Dodge OD Unavailable Frw, None Primary Care Provider Unavailabl e Frw, None Unavailable Unavailable No Ref-Primary, Physician Primary Care Provider Encounter Details Date Type Department Care Team (Late st Contact Info) Description 04/08/2010 MyC Medical Advice [facility] in [place] WELDING MACHINE OPERATOR ELECTRO GAS [address] [place] [phone] Jean Abel MD Social History Tobacco Use [...] on filedocumented in this encounter Care Teams Marking Machine Tender Relationship Specialty Start Date End Date Placido Velazco MD [facility] [address] [facility] [address] [place] [id number] PCP - General 08/15/00 08/24/10 Jean Abel MD PCP - Obstetrics/Gynecology 08/15/00 08/24/10 Mk Dodge OD [facility] [place] [address] [facility] [address] [place] [address] PCP - Ophthalmology 04/21/08 Frw, None PCP - General Family Practice 08/25/10 03/23/17 Frw, None PCP - Obstetrics/Gynecology Family Practice 08/25/10 No Ref-Primary, Physician PCP - General 07/09/21 documented as of this encounter
--- OUTSIDE RECORDS SUMMARY | 2024-02-16 16:17 | XMS_ITS | Encounter Summary ---
Author Organization [place] Address [address] [place] [address]. [place] [address] Care Team Providers Care Student Counsellor Name Role Phone Mk Dodge OD Unavailable Frw, None Primary Care Provider Unavailabl e Frw, None Unavailable Unavailable Encounter Details Date Type Department Care Team (Late st Contact Info) Description 10/07/2011 10:26 AM T [facility] [address] [place] [phone] Lina Rodriguez [facility]AG[facility]C [facility] [address] [place] [address] Social History Tobacco Use Types Packs/Day Years [...] on filedocumented in this encounter Care Teams Student Counsellor Relationship Specialty Start Date End Date Mk Dodge, OD [facility] [address] [place] [address] [address] [place] [address] PCP - Ophthalmology 9/29/08 Frw, None PCP - General Family Practice 08/25/10 03/23/17 Frw, None PCP - Obstetrics/Gynecology Family Practice 08/25/10 documented as of this encounter
--- OUTSIDE RECORDS SUMMARY | 2024-02-16 16:17 | XMS_ITS | Encounter Summary ---
Author Organization [place] Address [address] [place] [address]. [place] [address] Care Team Providers Care Motor Route Carrier Name Role Phone Mk Dodge OD Unavailable [phone] Frw, None Primary Care Provider Unavailabl e Frw, None Unavailable Unavailable No Ref-Primary, Physician Primary Care Provider Encounter Details Date Type Department Care Team (Late st Contact Info) Description 08/27/2010 MyC Medical Advice [facility] in [place] COLD STORAGE WORKER [address] [place] [address] Ailyn Leyva, CRIME SPECIALIST [facility] [address] [place] [address] Social History Tobacco Use Types [...] on filedocumented in this encounter Care Teams Motor Route Carrier Relationship Specialty Start Date End Date Mk Dodge, OD [facility] [address] [place] [address] PCP - Ophthalmology 04/21/08 Frw, None PCP - General Family Practice 08/25/10 03/23/17 Frw, None PCP - Obstetrics/Gynecology Family Practice 08/25/10 No Ref-Primary, Physician PCP - General 07/09/21 documented as of this encounter
--- OUTSIDE RECORDS SUMMARY | 2024-02-16 16:17 | XMS_ITS | Encounter Summary ---
Author Organization [place] Address [address] [place] [address]. [place] [address] Care Team Providers Care Community Resource Consultant Name Role Phone Mk Dodge OD Unavailable [phone] Frw, None Primary Care Provider Unavailabl e Frw, None Unavailable Unavailable No Ref-Primary, Physician Primary Care Provider Reason for Visit * Reason Onset Date Comments Refill Request 01/19/2011 ambien Encounter Details Date Type Department Care Team (Late st Contact Info) Description 01/19/2011 Refill [facility] in [place] ORDNANCE ARTIFICER [address] [place] [phone] Wen Jo MD [address] [place] [address] Refill Request (ambien) Social History Tobacco Use [...] on filedocumented in this encounter Care Teams Community Resource Consultant Relationship Specialty Start Date End Date Mk Dodge OD [facility] 701 [facility] [address] [place] [address] PCP - Ophthalmology 04/21/08 Frw, None PCP - General Family Practice 08/25/10 03/23/17 Frw, None PCP - Obstetrics/Gynecology Family Practice 08/25/10 No Ref-Primary, Physician PCP - General 07/09/21 documented as of this encounter
--- OUTSIDE RECORDS SUMMARY | 2024-02-16 16:17 | XMS_ITS | Encounter Summary ---
Author Organization [place] Address [address] [place] [address] Care Team Providers Care Correctional Supervisor Lieutenant Name Role Phone Placido Velazco MD Primary Care Provider [phone] Jean Abel MD Unavailable Unavailable Mk Dodge OD Unavailable [phone] Encounter Details Date Type Department Care Team (Late st Contact Info) Description 07/22/2010 10:46 AM [facility] in [facility] [address] [place] [address] [place] [address] Social History Tobacco Use Types Packs/Day Years [...] on filedocumented in this encounter Care Teams Correctional Supervisor Lieutenant Relationship Specialty Start Date End Date Placido Velazco MD [facility] [address] [facility] [address] [place] [address] PCP - General 08/15/00 08/24/10 Jean Abel MD PCP - Obstetrics/Gynecology 08/15/00 Mk Dodge OD [facility] [place] [address] [facility] [address] [place] [address] PCP - Ophthalmology 04/21/08 documented as of this encounter
--- OUTSIDE RECORDS SUMMARY | 2024-02-16 16:17 | XMS_ITS | Encounter Summary ---
Author Organization [place] Address [address] [place] [address] Care Team Providers Care Tier Lift Truck Operator Name Role Phone Mk Dodge OD Unavailable Frw, None Primary Care Provider Unavailabl e Frw, None Unavailable Unavailable No Ref-Primary, Physician Primary Care Provider Encounter Details Date Type Department Care Team (Late st Contact Info) Description 02/23/2011 [facility] in [place] Inpatient Dept [address] [place] [address] Frw, Inpatient Provider Delivery Record Social [...] on filedocumented in this encounter Care Teams Tier Lift Truck Operator Relationship Specialty Start Date End Date Mk Dodge, DUC [facility] [address] [place] [id number] PCP - Ophthalmology 04/21/08 Frw, None PCP - General Family Practice 08/25/10 03/23/17 Frw, None PCP - Obstetrics/Gynecology Family Practice 08/25/10 No Ref-Primary, Physician PCP - General 07/09/21 documented as of this encounter
--- OUTSIDE RECORDS SUMMARY | 2024-02-16 16:18 | XMS_ITS | Clinical Summary ---
Author Organization [facility] er Address [address] [place] [address] Care Team Providers Care Hotel Registration Clerk Name Role Phone Jeanine De La Torre PA-C Primary Care Provider [phone] Allergies Active Allergy Reactions Criticality Noted Date [...] Sex Assigned at Female 08/10/2022 7:13 AM DIRECTOR DIGITAL Gender Identity Female 08/10/2022 7:13 AM DIRECTOR DIGITAL Sexual Orientation Not on file Last Filed Vital Signs Vital Sign Reading Time Taken Comments Blood Pressure 114/82 08/09/2022 2:07 PM DIRECTOR DIGITAL Pulse 107 08/09/2022 2:07 PM DIRECTOR DIGITAL Temperature 36.7 ??C (98 ??F) 08/09/2022 2:07 PM DIRECTOR DIGITAL Respiratory Rate 16 08/09/2022 2:07 PM DIRECTOR DIGITAL Oxygen Saturation 98% 08/09/2022 2:07 PM DIRECTOR DIGITAL Inhaled Oxygen Concentration - - Weight 56.3 kg (124 lb 3.2 oz) 08/09/2022 2:07 P M DIRECTOR DIGITAL Height 158 cm (5' 2.21) 08/09/2022 2:07 PM DIRECTOR DIGITAL Body Mass Index 22.57 08/09/2022 2:07 PM DIRECTOR DIGITAL Plan of Treatment Health Maintenance Due Date Last Done Comments CT Colonography 1973 Colonoscopy 1973 Colorectal Cancer Screening 1973 FIT-DNA 1973 Pap Smear 1973 Sigmoidoscopy 1973 iFOBT 1973 Pneumococcal Vaccine: Pediatrics (0 to 5 Years) [...] Recently Relevant to Health Maintenance Care Teams Hotel Registration Clerk Relationship Specialty Start Date End Date Jeanine De La Torre PA-C [address] [place] [address] PCP - General Family Medicine 04/04/23
--- OUTSIDE RECORDS SUMMARY | 2024-02-16 16:18 | XMS_ITS | Encounter Summary ---
Author Organization [place] Address [address] [place] [address] Care Team Providers Care Boat Deckhand Name Role Phone Placido Velazco MD Primary Care Provider [phone] Jean Abel MD Unavailable Unavailable Mk Dodge OD Unavailable [phone] Frw, None Primary Care Provider Unavailabl e Frw, None Unavailable Unavailable No Ref-Primary, Physician Primary Care Provider Encounter Details Date Type Department Care Team (Late st Contact Info) Description 02/25/2008 MyC Medical Advice [facility] in [place] BURR MILL OPERATOR [address] [place] [phone] Jean Abel MD Social History Tobacco Use [...] on filedocumented in this encounter Care Teams Boat Deckhand Relationship Specialty Start Date End Date Placido Velazco MD [facility] [address] [facility] [address] [place] [address] PCP - General 08/15/00 08/24/10 Jean Abel MD PCP - Obstetrics/Gynecology 08/15/00 08/24/10 Mk Dodge OD [facility] [place] [address] [facility] [address] [place] [address] PCP - Ophthalmology 04/21/08 Frw, None PCP - General Family Practice 08/25/10 03/23/17 Frw, None PCP - Obstetrics/Gynecology Family Practice 08/25/10 No Ref-Primary, Physician PCP - General 07/09/21 documented as of this encounter
--- OUTSIDE RECORDS SUMMARY | 2024-02-16 16:18 | XMS_ITS | Encounter Summary ---
Author Organization [facility] er Address [address] [place] [address] Care Team Providers Care Cake Tester Name Role Phone Jeanine De La Torre PA-C Primary Care Provider [phone] Reason for Visit * Reason Comments Med Refill Encounter Details Date Type Department Care Team (Late st Contact Info) Description 12/31/2018 Refill [facility] [address] [place] [address] Madison Zamudio APRN, DIRECTOR GLOBAL DEVELOPMENT [address] [place] [address] Acute non-recurrent sinusitis, unspecified location Social History Tobacco Use Types Packs/Day Years Used Date Smoking Tobacco: Never Smokeless Tobacco: Never PHQ-2 Answer Date Recorded PHQ-2 Score 0 12/25/2018 Sex and Gender Information Value Date Recorded Sex Assigned at Female 08/10/2022 7:13 AM SHEET METAL DUCT INSTALLER Gender Identity Female 08/10/2022 7:13 AM SHEET METAL DUCT INSTALLER Sexual Orientation Not on file documented as of this encounter Miscellaneous Notes * Telephone Encounter - Madison Zamudio APRN, DIRECTOR GLOBAL DEVELOPMENT - 01/02/2019 12:01 PM CDT The patient [...] Last Rx azithromycin (ZITHROMAX) 250 MG tablet [[id number]] ??ENDED ?? Order Details Dose, Route, Frequency: [...] location documented in this encounter Care Teams Cake Tester Relationship Specialty Start Date End Date Jeanine De La Torre PA-C [address] [phone] PCP - General Family Medicine 04/04/23 documented as of this encounter
--- OUTSIDE RECORDS SUMMARY | 2024-02-16 16:18 | XMS_ITS | Referral Summary ---
Author Organization [facility] Address [address] [place] [address] Care Team Providers Care Manager Gift Name Role Phone Elsewhere, Pcp Primary Care Provider Unavailabl e Source Comments Patient records contain information from all sites at [facility]. For routine questions regarding patient records, call [phone] during business hours, M-F 8:00 AM - 5:00 PM Central Time. Record requests for emergency care only can be directed to [phone] at any time.[facility] Allergies Active Allergy Reactions Criticality Noted Date [...] How often do you attend chur or catholic services? Patient declined 10/13/2022 Do you belong to any clubs o r organizations such as hinduism groups, unions, fraternal or athletic groups, or [...] Answer Date Recorded PHQ-2 Score 0 03/23/2020 [facility] [place] of Occupat ional Health - Occupational Stress [...] Sex Assigned at Female 06/29/2017 5:49 AM ORTHOPEDIC SHOE MAKER Gender Identity Female 06/29/2017 5:49 AM ORTHOPEDIC SHOE MAKER Sexual Orientation Straight 06/29/2017 5: 49 AM ORTHOPEDIC SHOE MAKER Last Filed Vital Signs Vital Sign Reading Time Taken Comments Blood Pressure 114/59 04/24/2023 7:46 AM CDT Pulse 70 04/24/2023 7:46 AM CDT Temperature 36.7 ??C (98 ??F) 08/28/2023 12:28 PM ORTHOPEDIC SHOE MAKER Respiratory Rate 16 04/24/2023 7:46 AM CDT Oxygen Saturation 98% 03/23/2020 7:38 AM CDT Inhaled Oxygen Concentration - - Weight 55.8 kg (123 lb 0.3 oz) 04/24/2023 7:46 A M CDT Height 159 cm (5' 2.6) 08/29/2022 10:50 AM ORTHOPEDIC SHOE MAKER Body Mass Index 22.07 08/29/2022 10:50 AM ORTHOPEDIC SHOE MAKER Plan of Treatment Not on file Procedures Procedure Name Priority Date/Time Associated Diagnosis Comments COMPREHENSIVE METABOLIC PANEL, S/P STAT 03/22/2020 10:08 AM CDT LIPID PANEL, S Routine 11/29/2016 7:04 AM CDT BI BREAST SCREENING BILATERAL WITH TOMOSYNTHESIS Routine 11/27/2015 3:19 PM CDT PATHOLOGY PROGRAMMING DIRECTOR CYTOLOGY Routine 6 2:35 PM CDT from [...] CDT Lavon Alvarez P.A.-C. LAB BLOOD ADD-ON [facility] [address] [place] [address], [facility] CNFL [facility] in [address] [address] * Lipid Panel (11/29/2016 7:04 AM CDT) [...] for FH and FDB is available through [employer]: FH/ADH Genetic Reflex Panel (test ADHP). Acquired (non-genetic) causes of markedly increased LDL cholesterol include cholestatic liver disease due to the presence of LpX. If a genetic form of hypercholesterolemia is suspected, family studies including biochemical testing for lipids (total cholesterol,triglycerides, LDL cholesterol and HDL cholesterol) are recommended. ??Please contact the laboratory at or the on-line test catalog at [employer] for information about how to order these [...] Negative. LETTER: L1/2S Electronically signed by: ?? eLtty Zamora MD 27-Nov-2015 15:48 Narrative 11/27/2015 3:48 [...] M.D. IMG BI PROCEDUR ES * Pathology PROGRAMMING DIRECTOR Cytology (11/27/2015 2:35 PM CDT) 11/27/2015 2:35 PM CDT Narrative [facility] - 12/04/2015 10:39 AM CDT Pat: KINJAL TURCIOS ([id number]) Age/Sex: 40 ??F ??Loc: ? -00 (RWN ) CoPath ??SHLOMO: 11/27/15 14:35 ??REC: 11/27/15 14:35 ??PHYS: , Cytology ?ThinPrep cervical specimen Patient Name: KINJAL TURCIOS MR#: [id number] Submitting Physician: WESLY ??CHELO SALVADOR ??[id number] Specimen #[id number] Performing Lab: ??[place] [address] CLINICAL HISTORY: Last menstrual period: Status: Specimen [...] with Genotyping, PCR, ThinPrep, testing performed by [facility] HPV High Risk type 16, PCR [...] Wesly Henao M.D. LAB PAP COPATH ORDERABLES [facility] from Last 3 Months or Most Recently Relevant to Health Maintenance Care Teams Manager Gift Relationship Specialty Start Date End Date Elsewhere, Pcp PCP - General Internal Medicine 11/07/22
--- OUTSIDE RECORDS SUMMARY | 2024-02-16 16:18 | XMS_ITS | Encounter Summary ---
Author Organization [place] Address [address] [place] [address] Care Team Providers Care Goodwill Representative Name Role Phone Placido Velazco MD Primary Care Provider [phone] Jean Abel MD Unavailable Unavailable Mk Dodge OD Unavailable [phone] Frw, None Primary Care Provider Unavailabl e Frw, None Unavailable Unavailable No Ref-Primary, Physician Primary Care Provider Encounter Details Date Type Department Care Team (Late st Contact Info) Description 02/13/2009 MyC Medical Advice [facility] in [place] GOVERNMENT TEACHER [address] [place] [phone] Jean Abel MD Social History Tobacco Use [...] on filedocumented in this encounter Care Teams Goodwill Representative Relationship Specialty Start Date End Date Placido Velazco MD [facility] [address] [place] [id number] PCP - General 08/15/00 08/24/10 Jean Abel MD PCP - Obstetrics/Gynecology 08/15/00 08/24/10 Mk Dodge OD [facility] [place] [address] [facility] [address] [place] [address] PCP - Ophthalmology 04/21/08 Frw, None PCP - General Family Practice 08/25/10 03/23/17 Frw, None PCP - Obstetrics/Gynecology Family Practice 08/25/10 No Ref-Primary, Physician PCP - General 07/09/21 documented as of this encounter
--- OUTSIDE RECORDS SUMMARY | 2024-02-16 16:18 | XMS_ITS | Encounter Summary ---
Author Organization [place] Address [address] [place] [address] Care Team Providers Care Manager Review Name Role Phone Placido Velazco MD Primary Care Provider [phone] Jaen Abel MD Unavailable Unavailable Mk Dodge OD Unavailable [phone] Frw, None Primary Care Provider Unavailabl e Frw, None Unavailable Unavailable No Ref-Primary, Physician Primary Care Provider Encounter Details Date Type Department Care Team (Late st Contact Info) Description 02/29/2008 MyC Medical Advice [facility] in [place] PULP COOKER [address] [place] [phone] Jean Abel MD Social History Tobacco Use [...] filedocumented in this encounter Care Teams Manager Review Relationship Specialty Start Date End Date Placido Velazco MD [facility] [address] [facility] [address] [place] [address] PCP - General 08/15/00 08/24/10 Jean Abel MD PCP - Obstetrics/Gynecology 08/15/00 08/24/10 Mk Dodge OD [facility] [place] [address] [facility] [address] [place] [address] PCP - Ophthalmology 04/21/08 Frw, None PCP - General Family Practice 08/25/10 03/23/17 Frw, None PCP - Obstetrics/Gynecology Family Practice 08/25/10 No Ref-Primary, Physician PCP - General 07/09/21 documented as of this encounter
--- OUTSIDE RECORDS SUMMARY | 2024-02-16 16:18 | XMS_ITS | Encounter Summary ---
Author Organization [place] Address [address] [place] [address] Care Team Providers Care Block Inspector Name Role Phone Placido Velazco MD Primary Care Provider [phone] Jean Abel MD Unavailable Unavailable Mk Dodge OD Unavailable [phone] Frw, None Primary Care Provider Unavailabl e Frw, None Unavailable Unavailable No Ref-Primary, Physician Primary Care Provider Encounter Details Date Type Department Care Team (Late st Contact Info) Description 04/05/2010 MyC Medical Advice [facility] in [place] ANALYSIS CONSULTANT [address] [place] [phone] Jean Abel MD Social History Tobacco Use [...] on filedocumented in this encounter Care Teams Block Inspector Relationship Specialty Start Date End Date Placido Velazco MD [facility] [address] [facility] [address] [place] [id number] PCP - General 08/15/00 08/24/10 Jean Abel MD PCP - Obstetrics/Gynecology 08/15/00 08/24/10 Mk Dodge OD [facility] [place] 701 [facility] [address] [place] [address] PCP - Ophthalmology 04/21/08 Frw, None PCP - General Family Practice 08/25/10 03/23/17 Frw, None PCP - Obstetrics/Gynecology Family Practice 08/25/10 No Ref-Primary, Physician PCP - General 07/09/21 documented as of this encounter
--- OUTSIDE RECORDS SUMMARY | 2024-02-16 16:18 | XMS_ITS | Continuity of Care Document ---
Author Name [facility] Organization [facility] Care Team Providers Care Regulatory Leader Name Role Phone [facility] Unavailable Unavailable Social History Combined list of available smoking, tobacco, and other social history from Department of Defense and Veterans Affairs facilities. Social History Type Response Date Comment Sourc e This section is an empty social history section. [facility]
--- OUTSIDE RECORDS SUMMARY | 2024-02-16 16:18 | XMS_ITS | Clinical Summary ---
Author Organization [facility] Address [address] [place] [address] Care Team Providers Care Whale Trainer Name Role Phone Elsewhere, Pcp Primary Care Provider Unavailabl e Source Comments Patient records contain information from all sites at [facility]. For routine questions regarding patient records, call [phone] during business hours, M-F 8:00 AM - 5:00 PM Central Time. Record requests for emergency care only can be directed to [phone] at any time.[facility] Allergies Active Allergy Reactions Criticality Noted [...] week 10/13/2022 How often do you attend [facility] or spiritism services? Patient declined 10/13/2022 Do you belong to any clubs o r organizations such as adventist groups, unions, fraternal or athletic groups, or [...] Answer Date Recorded PHQ-2 Score 0 03/23/2020 [facility] - Occupational Stress Questionnaire [...] Sex Assigned at Female 06/29/2017 5:49 AM WOOD MACHINE CARVER Gender Identity Female 06/29/2017 5:49 AM WOOD MACHINE CARVER Sexual Orientation Straight 06/29/2017 5: 49 AM WOOD MACHINE CARVER Last Filed Vital Signs Vital Sign Reading Time Taken Comments Blood Pressure 114/59 04/24/2023 7:46 AM CDT Pulse 70 04/24/2023 7:46 AM CDT Temperature 36.7 ??C (98 ??F) 08/28/2023 12:28 PM WOOD MACHINE CARVER Respiratory Rate 16 04/24/2023 7:46 AM CDT Oxygen Saturation 98% 03/23/2020 7:38 AM CDT Inhaled Oxygen Concentration - - Weight 55.8 kg (123 lb 0.3 oz) 04/24/2023 7:46 A M CDT Height 159 cm (5' 2.6) 08/29/2022 10:50 AM WOOD MACHINE CARVER Body Mass Index 22.07 08/29/2022 10:50 AM WOOD MACHINE CARVER Plan of Treatment Health Maintenance Due [...] TOMOSYNTHESIS Routine 11/27/2015 3:19 PM CDT PATHOLOGY PRIOR AUTHORIZATION NURSE CYTOLOGY Routine 6 2:35 PM CDT from [...] CDT Lavon Alvarez P.A.-C. LAB BLOOD ADD-ON [facility] [address] [place] [address], [facility] CNFL [facility] [place] [address] * Lipid Panel (11/29/2016 7:04 AM CDT) [...] for FH and FDB is available through [employer]: FH/ADH Genetic Reflex Panel (test ADHP). Acquired (non-genetic) causes of markedly increased LDL cholesterol include cholestatic liver disease due to the presence of LpX. If a genetic form of hypercholesterolemia is suspected, family studies including biochemical testing for lipids (total cholesterol,triglycerides, LDL cholesterol and HDL cholesterol) are recommended. ??Please contact the laboratory at or the on-line test catalog at [employer] for information about how to order these [...] M.D. IMG BI PROCEDUR ES * Pathology PRIOR AUTHORIZATION NURSE Cytology (11/27/2015 2:35 PM CDT) 11/27/2015 2:35 PM CDT Narrative [facility] - 12/04/2015 10:39 AM CDT Pat: KINJAL TURCIOS ([id number]) Age/Sex: 40 ??F ??Loc: ? -00 (RWN ) CoPath ??SHLOMO: 11/27/15 14:35 ??REC: 11/27/15 14:35 ??PHYS: , Cytology ?ThinPrep cervical specimen Patient Name: KINJAL TURCIOS MR#: [id number] Submitting Physician: WESLY ??CHELO SALVADOR ??[id number] Specimen #[id number] Performing Lab: ??[place] [address] CLINICAL HISTORY: Last menstrual period: Status: Specimen [...] with Genotyping, PCR, ThinPrep, testing performed by [facility] HPV High Risk type 16, [...] Wesly Henao M.D. LAB PAP COPATH ORDERABLES [facility] from Last 3 Months or Most Recently Relevant to Health Maintenance Care Teams Whale Trainer Relationship Specialty Start Date End Date Elsewhere, Pcp PCP - General Internal Medicine 11/07/22
--- OUTSIDE RECORDS SUMMARY | 2024-02-16 16:18 | XMS_ITS ---
Author Organization [facility] Address [address] [place] [address] Care Team Providers Care Polysom Tech Name Role Phone Unavailable Unavailable Unavailable Surgery Details Not on file Complications Check Surgery Details section. Procedure Estimated Blood Loss Check Surgery Details section. Procedure Findings Check Surgery Details section. Procedure Specimens Taken Check Surgery Details section.
== END 2024-02-16 16:14 | disposition home or self-care (01) ==
LOC: NFLDREF 16:15
PROVIDERS: PCP Obstetrics & Gynecology; Visit Provider Obstetrics & Gynecology
DX: N95.1 Menopausal and female climacteric states (principal)
CPT/HCPCS: 83001

== ENCOUNTER 2025-02-24 08:56 | Outpatient (CLI) | payer BC, SELFPAY ==
[2025-02-24 13:44] LABS: Lab Add On Test New Spec Needed
== END 2025-02-24 08:57 | disposition home or self-care (01) ==
PROVIDERS: Visit Provider Obstetrics & Gynecology
DX: R73.01 Impaired fasting glucose (principal); R79.89 Other specified abnormal findings of blood chemistry; Z86.39 Personal history of other endocrine, nutritional and metabolic disease; Z13.29 Encounter for screening for other suspected endocrine disorder
CPT/HCPCS: 80061; 82947; 84443

== ENCOUNTER 2025-02-25 07:17 | Outpatient (CLI) | payer BC, SELFPAY ==
--- NOTE | 2025-02-25 07:15 | CRLHL7_ITS ---
For Patients: As a result of the Century Cures Act, medical imaging exams and procedure reports are released immediately into your electronic medical record. You may view this report before your referring provider. If you have questions, please contact your health care provider. CLINICAL HISTORY: lost IUD strings COMPARISON: None. TECHNIQUE: 2D lopez-scale and color Doppler images were acquired of the pelvis using a transvaginal approach. FINDINGS: On transvaginal imaging, the myometrium has a normal uniform echotexture. IUD is present in good position within the endometrial canal. Endometrium measures 2.6 millimeters. The left ovary measures 2.5 x 1.2 x 1.4 cm in size and the right ovary measures 3.2 x 1.1 x 1.7 cm. The ovaries demonstrate normal arterial and venous blood flow on color Doppler analysis. There are no suspicious fluid collections within the cul-de-sac. Simple cyst in right adnexa adjacent to the right ovary measures 2.0 x 1.8 x 2.1 cm. IMPRESSION: Normal position of an IUD within the endometrial canal. Dictated by Zeyad Buchanan MD @ 02/25/2025 9:12:54 AM (Electronically Signed)
== END 2025-02-25 07:18 | disposition home or self-care (01) ==
LOC: US 07:19
PROVIDERS: Visit Provider Obstetrics & Gynecology
DX: T83.32XA Displacement of intrauterine contraceptive device, initial encounter (principal)
CPT/HCPCS: 76830

== ENCOUNTER 2025-04-04 14:27 | Outpatient (CLI) | payer BC, SELFPAY ==
--- NOTE | 2025-04-04 14:40 | CRLHL7_ITS ---
For Patients: As a result of the Century Cures Act, medical imaging exams and procedure reports are released immediately into your electronic medical record. You may view this report before your referring provider. If you have questions, please contact your health care provider. BILATERAL DIGITAL SCREENING MAMMOGRAM WITH COMPUTER-AIDED DETECTION AND TOMOSYNTHESIS CLINICAL HISTORY: Routine screening exam. COMPARISON: 01/09/2024, 11/27/2015 TECHNIQUE: Digital mammogram in CC and MLO projections including computer-aided detection (CAD). Tomosynthesis was used in this interpretation. BREAST COMPOSITION: The breasts are heterogeneously dense, which may obscure small masses. FINDINGS: RIGHT Breast: Focal nodular density within the lower outer quadrant 7 cm from the nipple. No architectural distortion. LEFT Breast: No suspicious findings. IMPRESSION: RIGHT breast asymmetry/mass. RECOMMENDATIONS: Additional mammographic views of the RIGHT breast including 3D spot-compression CC/MLO. RIGHT breast ultrasound may also be required. The [facility] will contact the patient. A lay language report of this examination will be provided to the patient. BI-RADS Category 0: Incomplete: Need Additional Imaging Evaluation Dictated by Zeyad Buchanan MD @ 04/07/2025 11:53:20 AM (Electronically Signed)
== END 2025-04-04 14:28 | disposition home or self-care (01) ==
LOC: MAMMO 14:27
PROVIDERS: Visit Provider Obstetrics & Gynecology
DX: Z12.31 Encounter for screening mammogram for malignant neoplasm of breast (principal); N63.10 Unspecified lump in the right breast, unspecified quadrant; R92.333 Mammographic heterogeneous density, bilateral breasts
CPT/HCPCS: 77063; 77067

== ENCOUNTER 2025-04-10 08:20 | Outpatient (CLI) | payer BC, SELFPAY ==
--- NOTE | 2025-04-10 08:45 | CRLHL7_ITS ---
For Patients: As a result of the Cures Act, medical imaging exams and procedure reports are released immediately into your electronic medical record. You may view this report before your referring provider. If you have questions, please contact your health care provider. DIGITAL DIAGNOSTIC RIGHT MAMMOGRAM USING TOMOSYNTHESIS AND COMPUTER-AIDED DETECTION RIGHT BREAST ULTRASOUND CLINICAL HISTORY: RIGHT breast mass/asymmetry. COMPARISON: 04/04/2025, 01/09/2024, 11/27/2015. TECHNIQUE: Digital RIGHT mammogram in two projections with computer-aided detection. Tomosynthesis was used in this interpretation. Real-time ultrasound imaging of RIGHT breast with imaging documentation. BREAST COMPOSITION: The breast is heterogeneously dense, which may obscure small masses. FINDINGS: 3D spot compression CC/MLO RIGHT breast mammogram images submitted. Nodular density again noted within the lateral RIGHT breast without architectural distortion. No suspicious calcifications or adenopathy. Targeted RIGHT breast ultrasound performed. At 9 o`clock 6 cm from the nipple, there is a circumscribed anechoic cyst which measures 8 x 5 x 8 millimeters. IMPRESSION: Simple cyst RIGHT breast 9 o`clock 6 cm from the nipple measuring 8 x 5 8 millimeters. No suspicious findings. No evidence of malignancy. RECOMMENDATIONS: Routine screening mammography. A lay language report of this examination will be provided to the patient. BI-RADS Category 2: Benign Dictated by Zeyad Buchanan MD @ 04/10/2025 9:34:57 AM jj/Dictated by: Zeyad Buchanan MD @ 04/10/2025 9:34:00 AM (Electronically Signed)
--- NOTE | 2025-04-10 09:15 | CRLHL7_ITS ---
For Patients: As a result of the Cures Act, medical imaging exams and procedure reports are released immediately into your electronic medical record. You may view this report before your referring provider. If you have questions, please contact your health care provider. SEE DIGITAL DIAGNOSTIC RIGHT MAMMOGRAM PERFORMED SAME DAY CRL:[email or web address]/Dictated by: Zeyad Buchanan MD @ 04/10/2025 9:25:00 AM (Electronically Signed)
== END 2025-04-10 08:21 | disposition home or self-care (01) ==
LOC: MAMMO 08:20
PROVIDERS: Visit Provider Obstetrics & Gynecology
DX: N63.10 Unspecified lump in the right breast, unspecified quadrant (principal); R92.333 Mammographic heterogeneous density, bilateral breasts; R92.8 Other abnormal and inconclusive findings on diagnostic imaging of breast
CPT/HCPCS: 76642; 77065; G0279